=== PATIENT | female | born 1935 | race Caucasian/White ===

== ENCOUNTER 2023-09-24 14:01 | Outpatient (CLI) | payer MEDICARE, BC, SELFPAY ==
--- OUTSIDE RECORDS SUMMARY | 2023-09-24 14:09 | XMS_ITS | Encounter Summary ---
Author Organization [facility] Address [address] [place] [address] Care Team Providers Care Director Payer Name Role Phone Davide Connelly P.A.-C. Primary Care Provider Reason for Referral * Outpatient (Routine) - Authorized Specialty Diagnoses / Procedures Referred By Juvenal camejo Referred To Contact Ophthalmology Estevan Robledo M.D. [address] [place] [phone] [facility] Referral ID Status Reason Start Date Expiration Date V isits Requested Visits Authorized [id number] Authorized 09/06/2023 03/07/2025 1 1 Reason for Visit * Reason Comments Follow-up * Outpatient (Routine) - Closed Specialty Diagnoses / Procedures Referred By Juvenal camejo Referred To Contact Ophthalmology Estevan Robledo M.D. [address], [place] [address] [facility] Region Referral ID Status Reason Start Date Expiration Date Visits Re quested Visits Authorized [id number] Closed 08/09/2023 02/07/2025 1 1 Encounter Details Date Type Department Care Team (Latest Contact Info) Description 09/06/2023 10:00 AM CDT Office Visit Department of Ophthalmology in [place], [place] [address] [phone] Estevan Robledo M.D. [address] [phone] Primary Open-Angle Glaucoma Severe Stage Bilateral (Primary Dx); Edema Corneal Secondary Right Social History Tobacco Use Types Packs/Day Years Used Date Smoking Tobacco: Former Cigarettes Q uit: 02/25/1994 Smokeless Tobacco: Never Alcohol Use Standard Drinks/Week Comments Yes 2 (1 standard drink = 0.6 oz pur e alcohol) Humiliation, Afraid, Rape, and Kick questionnair e Answer Date Recorded Within the last year, have y ou been afraid of your partner or ex-partner? No 01/10/2022 Within the last year, have y ou been humiliated or emotionally abused in other ways by your partner or ex-partner? No Within the last year, have y ou been kicked, hit, slapped, or otherwise physically hurt by your partner or ex-partner? No 01/10/2022 Within the last year, have y ou been raped or forced to have any kind of sexual activity by your partner or ex-partner? No 01/10/2022 Social Connection and Isolat ion Panel [NHANES] Answer Date Recorded In a typical week, how many times do you talk on the phone with family, friends, or neighbors? More than three times a week 01/10/2022 How often do you get togethe r with friends or relatives? More than three times a week 01/10/2022 How often do you attend [facility] or adventism services? More than 4 times per year 01/10/2022 Do you belong to any clubs o r organizations such as moravian groups, unions, fraternal or athletic groups, or school groups? Yes 01/10/2022 How often do you attend meet ings of the clubs or organizations you belong to? More than 4 times per year 01/10/2022 Are you , , di vorced, , never , or living with a partner? 01/10/2022 AUDIT-C Answer Date Recorded Q1: How often do you have a drink containing alc ohol? 2-4 times a month 01/10/2022 Q2: How many drinks containi ng alcohol do you have on a typical day when you are drinking? Patient declined 01/10/2022 Q3: How often do you have si x or more drinks on one occasion? Never 01/10/2022 Overall Financial Resource Strain (CARDIA) Answe r Date Recorded How hard is it for you to pa y for the very basics like food, housing, medical care, and heating? Not very hard 01/10/2022 PHQ-2 Answer Date Recorded PHQ-2 Score 0 01/11/2022 [facility] - Occupational Stress Questionnaire Answer Date Recorded Do you feel stress - tense, restless, nervous, or anxious, or unable to sleep at night because your mind is troubled all the time - these days? Only a little 01/10/2022 Exercise Vital Sign Answer Date Recorde d On average, how many days pe r week do you engage in moderate to strenuous exercise (like a brisk walk)? 7 days 01/10/2022 On average, how many minutes do you engage in exercise at this level? 50 min 01/10/2022 Hunger Vital Sign Answer Date Recorded Within the past 12 months, y ou worried that your food would run out before you got the money to buy more. Never true 01/11/20 22 Within the past 12 months, t he food you bought just didn't last and you didn't have money to get more. Never true 01/10/2022 PRAPARE - Transportation Answer Date Re corded In the past 12 months, has l ack of transportation kept you from medical appointments or from getting medications? No 12/26 In the past 12 months, has l ack of transportation kept you from meetings, work, or from getting things needed for daily living? No 01/10/2022 Housing Stability Vital Sign Answer Mookie e Recorded In the last 12 months, was t here a time when you were not able to pay the mortgage or rent on time? No 01/10/2022 In the last 12 months, how many places have you lived? 1 01/10/2022 In the last 12 months, was t here a time when you did not have a steady place to sleep or slept in a custodial (including now)? No 01/10/2022 Depression Answer Date Recor ded PHQ-9 Total Score (max 27) 5 07/29 Nutrition Answer Date Recorded Nutrition: EVOO Fat Source Yes 01/10 On average, how many serving s of fruits and vegetables do you eat per day (serving size is equal to 1 cup or approximately the size of a tennis ball)? 2-3 01/10/2022 Dental Answer Date Recorded Dental: Regular Dentist Yes 01/11/20 Employment Answer Date Recorded Employment status Retired 01/10/2022 Education Answer Date Recorded What is the highest level of school you have completed or the highest degree you have received? Bachelor's degree (e.g., BA, AB, BS) 09/15/2018 Sex and Gender Information Value Date Recorded Sex Assigned at Female 03/31/2018 8:18 PM CONTRACT ATTORNEY Gender Identity Female 03/31/2018 8:18 PM CONTRACT ATTORNEY Sexual Orientation Straight 03/31/2018 8: 18 PM CONTRACT ATTORNEY documented as of this encounter Progress Notes * Estevan Robledo M.D. - 09/06/2023 10:00 AM CDT Julia Saavedra was seen today for Follow-up #1 Primary Open-Angle Glaucoma Severe Stage Bilateral #2 Edema Corneal Secondary Right Plan; Replace BCL right eye. Continue current eye meds without change. Recheck four to six weeks. III documented in this encounter Plan of Treatment Upcoming Encounters Date Type Department Care Team (Late st Contact Info) Description 10/18/2023 10:00 AM CDT Office Visit Department of Ophthalmology in [place], [place] [address] [place] [phone] Estevan Robledo M.D. [address], [place] [address] Scheduled Referrals Name Type Priority Associated Diagnoses Order Schedule Ophthalmology office visit (clinic) Outpatient Referral Routine Expected: 10/11/2023 (Approximate), Expires: 12/06/2024 documented as of this encounter Visit Diagnoses Diagnosis Primary Open-Angle Glaucoma Severe Stage Bilateral- Primary Edema Corneal Secondary Right documented in this encounter Additional Health Concerns Assessment Noted Time PHQ-9 Depression Total Score: 5 07/30/19 21 9:46 AM CDT documented as of this encounter Care Teams Director Payer Relationship Specialty Start Date End Date Davide Connelly P.A.-C. PCP - General Family Medicine 07/11/17 documented as of this encounter
--- OUTSIDE RECORDS SUMMARY | 2023-09-24 14:09 | XMS_ITS | Encounter Summary ---
Author Organization [facility] Address [address] [place] [address] Care Team Providers Care Produce Buyer Name Role Phone Davide Connelly P.A.-C. Primary Care Provider Encounter Details Date Type Department Care Team (Late st Contact Info) Description 06/12/2023 Orders Only Department of Ophthalmology in [place], [place] [address] [place] [phone] Estevan Robledo M.D. [address], [place] [address] Social History Tobacco Use Types Packs/Day Years [...] week 01/10/2022 How often do you attend chur ch or episcopal services? More than 4 times per year 01/10/2022 Do you belong to any clubs o r organizations such as spiritism groups, unions, fraternal or athletic groups, or [...] Answer Date Recorded PHQ-2 Score 0 01/11/2022 [facility] - Occupational [...] money to buy more. Never true 01/11/20 Within the past 12 months, t he [...] place to sleep or slept in a chcf (including now)? No 01/10/2022 Depression Answer Date [...] Sex Assigned at Female 03/31/2018 8:18 PM AUTO BODY TECHNICIAN Gender Identity Female 03/31/2018 8:18 PM AUTO BODY TECHNICIAN Sexual Orientation Straight 03/31/2018 8: 18 PM AUTO BODY TECHNICIAN documented as of this encounter Plan of Treatment Upcoming Encounters Date Type Department Care Team (Late st Contact Info) Description 10/18/2023 10:00 AM CDT Office Visit Department of Ophthalmology in [place], [place] [address] [phone] Estevan Robledo M.D. [address] [place] [phone] documented as of this encounter Visit Diagnoses Not on filedocumented in this encounter Additional Health Concerns Assessment Noted Time PHQ-9 Depression Total Score: 5 07/30/19 21 9:46 AM CDT documented as of this encounter Care Teams Produce Buyer Relationship Specialty Start Date End Date Davide Connelly P.A.-C. PCP - General Family Medicine 07/11/17 documented as of this encounter
--- OUTSIDE RECORDS SUMMARY | 2023-09-24 14:09 | XMS_ITS | Encounter Summary ---
Author Organization [facility] Address [address] [place] [address] Care Team Providers Care Ticket Speculator Name Role Phone Davide Connelly P.A.-C. Primary Care Provider Reason for Referral * Outpatient (Routine) - Closed Specialty Diagnoses / Procedures Referred By Juvenal camejo Referred To Contact Ophthalmology Estevan Robledo M.D. [address] [phone] [facility] Referral ID Status Reason Start Date Expiration Date Visits Re quested Visits Authorized [id number] Closed 08/09/2023 02/07/2025 1 1 Reason for Visit * Reason Comments Dry Eye * Outpatient (Routine) - Closed Specialty Diagnoses / Procedures Referred By Juvenal camejo Referred To Contact Ophthalmology Estevan Robledo M.D. [address] [place] [phone] [facility] Referral ID Status Reason Start Date Expiration Date Visits Re quested Visits Authorized [id number] Closed 07/01/2023 12/30/2024 1 1 Encounter Details Date Type Department Care Team (Latest Contact Info) Description 08/09/2023 10:30 AM CDT Office Visit Department of Ophthalmology in [place], [place] [address] [phone] Estevan Robledo M.D. [address] [phone] Dry Eye Syndrome Right (Primary Dx); Primary Open-Angle Glaucoma Severe Stage Bilateral; Edema Corneal Secondary Right; Intraocular Lens Implant Status Post Social History Tobacco Use Types Packs/Day Years [...] 01/10/2022 How often do you attend chur or restoration services? More than 4 times per year 01/10/2022 Do you belong to any clubs o r organizations such as sikhism groups, unions, fraternal or athletic groups, or [...] Answer Date Recorded PHQ-2 Score 0 01/11/2022 [facility] - Occupational Stress [...] Sex Assigned at Female 03/31/2018 8:18 PM STAGE SETTING PAINTER APPRENTICE Gender Identity Female 03/31/2018 8:18 PM STAGE SETTING PAINTER APPRENTICE Sexual Orientation Straight 03/31/2018 8: 18 PM STAGE SETTING PAINTER APPRENTICE documented as of this encounter Progress Notes * Estevan Robledo M.D. 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 Increased dry eye with contact lens deposits. Plan: replace BCL. Maxitrol italia bedtime right lower lid. Recheck one month. III documented in this encounter Plan of Treatment Upcoming Encounters Date Type Department Care Team (Late st Contact Info) Description 10/18/2023 10:00 AM CDT Office Visit Department of Ophthalmology in [place], [place] [address] [place] [phone] Estevan Robledo M.D. 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 PCP - General Family Medicine 07/11/17 documented as of this encounter
--- OUTSIDE RECORDS SUMMARY | 2023-09-24 14:09 | XMS_ITS ---
Author Organization [facility] Address [address] [place] [address] Care Team Providers Care Technical Testing Engineer Name Role Phone Unavailable Unavailable Unavailable Surgery Details Not on file Complications Check Surgery Details section. Procedure Estimated Blood Loss Check Surgery Details section. Procedure Findings Check Surgery Details section. Procedure Specimens Taken Check Surgery Details section.
--- OUTSIDE RECORDS SUMMARY | 2023-09-24 14:09 | XMS_ITS | Encounter Summary ---
Author Organization [facility] Address [address] [place] [address] Care Team Providers Care Forensic Identification Specialist Name Role Phone Davide Connelly P.A.-C. Primary Care Provider Encounter Details Date Type Department Care Team (Late st Contact Info) Description 11/15/2016 Historical Ophthalmology [facility] Estevan Robledo M.D. [address] [place] [phone] Social History Tobacco Use Types Packs/Day Years Used Date Smoking Tobacco: Former Sex and Gender Information Value Date Recorded Sex Assigned at Female 03/31/2018 8:18 PM CARPENTER Gender Identity Female 03/31/2018 8:18 PM CARPENTER Sexual Orientation Straight 03/31/2018 8: 18 PM CARPENTER documented as of this encounter Progress Notes * Estevan Robledo M.D. - 11/15/2016 9:15 AM CDT Eye General CHIEF COMPLAINT 1 month recheck HISTORY OF PRESENT ILLNESS No changes or new problems per pt. IMPRESSION / REPORT / PLAN #1 Corneal edema right eye. Overall edema and inflammation doing well but had again lost contact lens N&D 8.6 and replaced with N&D 8.4. Notes increased edge awareness probably due to lower lid laxity and small diameter of lens. #2 Trichiasis right upper lid. Not bothering patient currently. Plan: Replace bandage contact lens with N&D 8.4 lens. F/u six weeks. III/ DIAGNOSIS #1 Corneal edema right eye. Overall edema and inflammation doing well but had again lost contact lens N&D 8.6 and replaced with N&D 8.4. Notes increased edge awareness probably due to lower lid laxity and small diameter of lens. #2 Trichiasis right upper lid. Not bothering patient currently. CDM Reports - EYEGEN Id: [id number] Status: Fnl documented in this encounter Plan of Treatment Upcoming Encounters Date Type Department Care Team (Late st Contact Info) Description 10/18/2023 10:00 AM CDT Office Visit Department of Ophthalmology in [place], [place] [address], [place] [address] Estevan Robledo M.D. [address], [place] [phone] documented as of this encounter Visit Diagnoses Not on filedocumented in this encounter Additional Health Concerns Assessment Noted Time PHQ-9 Depression Total Score: 2 06/27/19 17 9:59 AM CDT documented as of this encounter Care Teams Forensic Identification Specialist Relationship Specialty Start Date End Date Davide Connelly P.A.-C. PCP - General Family Medicine 07/11/17 documented as of this encounter
--- OUTSIDE RECORDS SUMMARY | 2023-09-24 14:09 | XMS_ITS | Clinical Summary ---
Author Organization [facility] Address [address] [place] [address] Care Team Providers Care Barrel Polisher Name Role Phone Davide Connelly P.A.-C. Primary Care Provider Source Comments Patient records contain information from all sites at [facility]. For routine questions regarding patient records, call [phone] during business hours, M-F 8:00 AM - 5:00 PM Central Time. Record requests for emergency care only can be directed to [phone] at any time.[facility] Allergies Active Allergy Reactions Criticality Noted Date Comments Brimonidine Other (see comments) 08/31/2010 Cerner listed no reactions Brinzolamide Other (see comments) 08/31/2010 Cerner listed no reactions Latanoprost Other (see comments) 08/31/2010 Cerner listed no reactions Timolol Other (see comments) 08/31/2010 Cerner listed no reactions Medications Medication Sig Dispensed Refills Start Date End Date Status ACETAMINOPHEN (TYLENOL ARTHRITIS ORAL) Take 650 mg by mouth 2 (two) times a day. 08/31/2010 Active GLUCOSAMINE/CHOND ROITIN SULF A (GLUCOSAMINE-MALINA DROITIN ORAL) Take by mouth 2 (two) times a day. 06/14/2009 Active carboxymethylcell ulose-glycerin (REFRESH OPTIVE) 1-0.9 % ophthalmic solution Administer 1 drop into both eyes 3 (three) times a day as needed. 12/25/2012 Active antiarthritic combination no.2 900 mg tablet Take 1,000 mg by mouth. 06/12/2022 Active CALCIUM CARBONATE-VITAMIN D3 ORAL Take 1 capsule by mouth 2 (two) times a day. 06/12/2022 Active LORazepam (ATIVAN) 0.5 mg tablet Take 0.5 mg by mouth 3 (three) times a day as needed. 06/12/2022 Active amLODIPine (NORVASC) 5 mg tablet Take 1 tablet (5 mg total) by mouth daily. 90 tablet 3 01/24/2023 Active atenoloL (TENORMIN) 25 mg tablet Take 1 tablet (25 mg total) by mouth daily. 90 tablet 3 01/24/2023 Active FLUoxetine (PROzac) 10 mg capsule Take 1 capsule (10 mg total) by mouth daily. 90 capsule 3 01/24/2023 Active lisinopriL (PRINIVIL,ZESTRIL ) 30 mg tablet Take 1 tablet (30 mg total) by mouth daily. 90 tablet 3 01/24/2023 Active mirtazapine (Remeron) 15 mg tablet Take 0.5 tablets (7.5 mg total) by mouth at bedtime. 45 tablet 3 01/24/2023 Active diclofenac sodium (VOLTAREN) 1 % gel Apply 2 g topically 4 (four) times a day. Apply to affected area. 100 g 11 01/24/2023 Active ketorolac (ACULAR) 0.5 % ophthalmic solution Administer 1 drop into the right eye 2 (two) times a day. 5 mL 2 03/12/2023 Active neomycin-polymyxi n B-dexameth (MAXITROL) 3.5 mg/g-10,000 unit/g-0.1 % ophthalmic ointment Apply to right upper lid twice daily. 3.5 g 1 03/19/2023 Active Additional Information Patient not taking.Reported on 05/27/2023 tobramycin (TOBREX) 0.3 % ophthalmic solution Administer 1 drop into the right eye daily. 5 mL 11 06/12/2023 Active neomycin-polymyxi n B-dexameth (MAXITROL) 3.5 mg/g-10,000 unit/g-0.1 % ophthalmic ointment Apply to right lower lid daily at bedtime 3.5 g 1 08/09/2023 Active Additional Information Patient not taking.Reported on 09/06/2023 Gemtesa 75 mg tabletIndications :Urinary Urge Incontinence take one tablet by mouth every day 90 tablet 3 09/04/2023 Active vibegron 75 mg tabletIndications :Urinary Urge Incontinence Take 1 tablet by mouth daily. 30 tablet 11 08/21/2022 09/04/19 24 Discontinued Active Problems Problem Noted Date Diagnosed Date Urinary Urge Incontinence 07/17/2022 Overview (08/21/2022): Initiated pelvic floor muscle exercises and mirabegron. I will plan to see her back in 1 month for follow-up. Notes significant improvement and would like to continue medication. Prescription renewed for 1 year. Recommend follow-up in 1 year. 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 Pelvic floor PT was offered and declined. She would prefer to work on pelvic floor muscle strength on her own. Postmenopausal Atrophic Vaginitis 07/17/2022 Overview (08/21/2022): Discussed initiation of estrogen cream and she declines at this time. Will revisit in the future if needed. Anxiety 01/26/2019 Primary Osteoarthritis Multiple Sites 05/22/2017 Onychomycosis 05/22/2017 Glaucoma 05/22/2017 Osteoporosis 06/14/2009 Hypertension Essential Primary 09/18/2001 Resolved Problems Problem Noted Date Diagnosed Date Resolved Date Fracture Wrist Closed Subsequent Left 09/30/2018 01/11/2020 Hyperlipidemia Mixed 05/22/2017 020 Incontinence Urinary Stress And Urge 05/22/2017 07/17/2022 Periodontal Disease 05/22/2017 07/17/19 19 Encounters Date Type Department Care Team Description 09/06/2023 10:00 AM CDT Office Visit Department of Ophthalmology in [place], [place] [address] [place] [address] Estevan Robledo M.D. Primary Open-Angle Glaucoma Severe Stage Bilateral (Primary Dx); Edema Corneal Secondary Right 08/30/2023 Refill Department of Obstetrics and Gynecology in [place], [place] [address] [place] [address] Kaila Blackburn, ARACELIS, C.N.P. Med Refill 08/09/2023 10:30 AM CDT Office Visit Department of Ophthalmology in [place], [place] [address], [place] [address] Estevan Robledo M.D. Dry Eye Syndrome Right (Primary Dx); Primary Open-Angle Glaucoma Severe Stage Bilateral; Edema Corneal Secondary Right; Intraocular Lens Implant Status Post 07/02/2023 Orders Only [facility] MNT Davide Connelly P.A.-C. 07/01/2023 10:00 AM CDT Office Visit Department of Ophthalmology in [place], [place] [address], [place] [address] Estevan Robledo M.D. Dry Eye Syndrome Right (Primary Dx); Primary Open-Angle Glaucoma Severe Stage Bilateral from Last 3 Months Immunizations Name Administration Dates Next Due DT, Pediatric 05/30/2007 HZV (ZOSTAVAX) 03/04/2013 Influenza high dose QV(65 ye ars or older) (PF) 01/24/2023,01/11/2022,12/19/2020 Influenza, Unspecified 12/10/2019,2018,12/30/2017,2016,12/29/2015,12/28/2014,12/29/2013,1 ,12/31/2011,12/21/2010, 010,11/10/2008,12/24/2007,12/16/2006, PCV13 06/21/2014 PPSV23 08/09/2001,04/01/2000 RZV (SHINGRIX) 01/11/2021(Deferred: Patient decision),01/28/2020 SARS-COV-2 (COVID-19) - MODE RNA (12 YEARS AND OLDER) [id number] 01/24/2023 SARS-COV-2 (COVID-19) - PFIZ ER (Discontinued)(12 years or older) 11/18/2020,04/14/2020,03/24/2020 SARS-COV-2 (COVID-19) - PFIZ ER BIVALENT TS(Discontinued)(12 YEARS OR OLDER) 01/11/2022 SARS-COV-2 (COVID-19) - PFIZ ER TS(Discontinued)(12 years or older) 08/21/2021 Td (Adult), adsorbed 02/09/1997 Td, (Adult) Unspecified 05/30/2007 Tdap 06/24/2013 Zoster, Unspecified 01/11/2021(Deferred: Other) influenza high dose (65 year s or older) (PF) 12/15/2018,12/30/2017 Family History Medical History Relation Name Comments Diabetes Brother Hyperlipidemia Brother Hypertension Brother Coronary artery disease Father Nicholas Barrios Heart attack Father Nicholas Barrios Colon cancer Mother Relation Name Status Comments Brother Father Nicholas Barrios Mother Social History Tobacco Use Types Packs/Day Years Used Date Smoking Tobacco: Former Cigarettes Q uit: 02/25/1994 Smokeless Tobacco: Never Tobacco Cessation:Counseling Given: Not Answered Alcohol Use Standard Drinks/Week Comments Yes 2 [...] week 01/10/2022 How often do you attend [facility] or christianity services? More than 4 times per year 01/10/2022 Do you belong to any clubs o r organizations such as worship groups, unions, fraternal or athletic groups, or [...] Answer Date Recorded PHQ-2 Score 0 01/11/2022 [facility]ational Stress Questionnaire Answer [...] place to sleep or slept in a half-way (including now)? No 01/10/2022 Depression Answer Date [...] Sex Assigned at Female 03/31/2018 8:18 PM SOA ENGINEER Gender Identity Female 03/31/2018 8:18 PM SOA ENGINEER Sexual Orientation Straight 03/31/2018 8: 18 PM SOA ENGINEER Last Filed Vital Signs Vital Sign Reading Time Taken Comments Blood Pressure 116/64 01/24/2023 11:06 AM SOA ENGINEER Pulse 56 01/24/2023 10:51 AM SOA ENGINEER Temperature 36 ??C (96.8 ??F) 01/24/2023 10:46 AM SOA ENGINEER Respiratory Rate 20 01/24/2023 10:46 AM SOA ENGINEER Oxygen Saturation 100% 07/29/2020 9:54 AM CDT Inhaled Oxygen Concentration - - Weight 53.7 kg (118 lb 4.4 oz) 01/24/2023 10:46 AM SOA ENGINEER Height 163 cm (5' 4.17) 01/24/2023 10:46 AM SOA ENGINEER Body Mass Index 20.19 01/24/2023 10:46 AM SOA ENGINEER Plan of Treatment Upcoming Encounters Date Type Department Care Team (Late st Contact Info) Description 10/18/2023 10:00 AM CDT Office Visit Department of Ophthalmology in [place], [place] [address] [place] [address] Estevan Robledo M.D. [address] [place] [address] Health Maintenance Due Date Last Done Comments Visit: Medicare Annual Wellness 01/12/2023 Depression Screening (Annual PHQ-2) 02/25/2023 Fall Risk Screen (Annual) 02/25/2023 COVID-19 Vaccine (2022-2 4 season) 2023 01/24/2023, 01/11/2022, 08/21/2021, Additional history exists DTaP,Tdap,and Td Vaccines (4 - Td or Tdap) 06/25/2023 06/24/2013, 05/30/2007, 05/30/2007, Additional history exists Influenza Vaccine (#1) 2023 3, 01/11/2022, 12/19/2020, Additional history exists Creatinine Level (Kidney Fun ction Test) 01/24/2024 01/23/2023, 01/11/2022, 01/08/2022, Additional history exists Potassium Level 01/24/2024 01/23/2023, 12/26, 01/08/2022, Additional history exists Sodium Level 01/24/2024 01/23/2023, 12/26, 01/08/2022, Additional history exists Visit: Chronic Disease, age 18+ 01/25/2024 Pneumococcal vaccine (65+ years) Completed 06/21/2014, 08/09/2001, 04/01/2000 Zoster Vaccines Completed 01/11/2021, 04/2019, 03/04/2013 Medical Devices Implanted Type Area Sorority Supervisor Device Identifier Shelf Expiration Date Model / Serial / Lot Sclera Tissue Shell 1 2 - Flores Implanted:Qty: 1 on 07/18/1999 Ocular (Eye) Implant [id number] Medical Description:Device Manufactu rer - [id number]. Device Status Text - OCULARIMP-. Procedures Procedure Name Priority Date/Time Associated Diagnosis Comments COMPREHENSIVE METABOLIC PANEL, S/P Routine 01/23/2023 9:15 AM SOA ENGINEER Hypertension Essential Primary from Last 3 Months or Most Recently Relevant to Health Maintenance Results * Comprehensive Metabolic Panel (01/23/2023 9:15 AM SOA ENGINEER) Potassium, P 4.7 3.6 - 5.2 mmol/L 01/23/2023 11:56 AM SOA ENGINEER OWAT Sodium, P 136 135 - 145 mmol/L 01/23/2023 11:56 AM SOA ENGINEER OWAT Chloride, P 100 98 - 107 mmol/L 01/23/2023 11:56 AM SOA ENGINEER OWAT Bicarbonate, P 23 22 - 29 mmol/L 01/23/2023 11:56 AM SOA ENGINEER OWAT Anion Gap, P 13 7 - 15 01/23/2023 11:56 AM SOA ENGINEER OWAT BUN (Blood Urea Nitrogen), P 20 6 - 21 mg/dL 01/23/2023 11:56 AM SOA ENGINEER OWAT Creatinine 0.84 0.59 - 1.04 mg/dL 01/23/2023 11:56 AM SOA ENGINEER OWAT Estimated GFR (eGFR) 68 >=60 mL/min/BS A 01/23/2023 11:56 AM SOA ENGINEER OWAT Comment: Estimated GFR calculated using the 2020 CKD_EPI creatinine equation. Calcium, Total, P 9.6 8.8 - 10.2 mg/dL 01/23/2023 11:56 AM SOA ENGINEER OWAT Glucose, P 99 70 - 140 mg/dL 01/23/2023 11:56 AM SOA ENGINEER OWAT Protein, Total, P 7.0 6.3 - 7.9 g/dL 01/23/2023 11:56 AM SOA ENGINEER OWAT Albumin, P 4.4 3.5 - 5.0 g/dL 01/23/2023 11:56 AM SOA ENGINEER OWAT Aspartate Aminotransferase (AST), P 20 8 - 43 U/L 01/23/2023 11:56 AM SOA ENGINEER OWAT Alkaline Phosphatase, P 85 35 - 104 U/L 01/23/2023 11:56 AM SOA ENGINEER OWAT Alanine Aminotransferase (ALT), P 11 7 - 45 U/L 01/23/2023 11:56 AM SOA ENGINEER OWAT Bilirubin, Total, P 0.3 0.0 - 1.2 mg/dL 01/23/2023 11:56 AM SOA ENGINEER OWAT Blood (Blood, Venous) 01/23/2023 9:15 AM SOA ENGINEER 01/23/2023 11:17 AM SOA ENGINEER Davide Connelly P.A.-C. LAB BLOOD ADD- ON [facility] [address] [place] [address], [place] OWAT [facility] [place] [address] [place] [address] from Last 3 Months or Most Recently Relevant to Health Maintenance Advance Directives For more information, please contact: [phone] Documents on File Type Date Recorded Patient Celery Packer Expl anation Advance Directives 03/16/2011 12:00 AM Leg acy document. See document viewer. Care Teams Barrel Polisher Relationship Specialty Start Date End Date Davide Connelly P.A.-C. PCP - General Family Medicine 07/11/17
--- OUTSIDE RECORDS SUMMARY | 2023-09-24 14:09 | XMS_ITS | Encounter Summary ---
Author Organization [facility] Address [address] [place] [address] Care Team Providers Care Street Car Inspector Name Role Phone Davide Connelly P.A.-C. Primary Care Provider Reason for Referral * Outpatient (Routine) - Closed Specialty Diagnoses / Procedures Referred By Juvenal camejo Referred To Contact Ophthalmology Estevan Robledo M.D. [address] [phone] [facility] Referral ID Status Reason Start Date Expiration Date Visits Re quested Visits Authorized [id number] Closed 07/01/2023 12/30/2024 1 1 * Outpatient (Routine) - Closed Specialty Diagnoses / Procedures Referred By Juvenal camejo Referred To Contact Ophthalmology Estevan Robledo M.D. [address] [place] [phone] [facility] Referral ID Status Reason Start Date Expiration Date Visits Re quested Visits Authorized [id number] Closed 07/01/2023 12/30/2024 1 1 Reason for Visit * Reason Comments Follow-up * Outpatient (Routine) - Closed Specialty Diagnoses / Procedures Referred By Juvenal camejo Referred To Contact Ophthalmology Estevan Robledo M.D. [address] [place] [phone] [facility] Region Referral ID Status Reason Start Date Expiration Date Visits Re quested Visits Authorized [id number] Closed 05/27/2023 11/25/2024 1 1 Encounter Details Date Type Department Care Team (Latest Contact Info) Description 07/01/2023 10:00 AM CDT Office Visit Department of Ophthalmology in [place], [place] [address] [place] [address] Estevan Robledo M.D. [address] [place] [address] Dry Eye Syndrome Right (Primary Dx); Primary Open-Angle Glaucoma Severe Stage Bilateral Social History Tobacco Use Types Packs/Day Years [...] week 01/10/2022 How often do you attend [facility] or buddhism services? More than 4 times per year 01/10/2022 Do you belong to any clubs o r organizations such as confucianist groups, unions, fraternal or athletic groups, or [...] Answer Date Recorded PHQ-2 Score 0 01/11/2022 [facility] - Occupational Stress Questionnaire Answer Date Recorded [...] Sex Assigned at Female 03/31/2018 8:18 PM MEDICAL DOCTOR Gender Identity Female 03/31/2018 8:18 PM MEDICAL DOCTOR Sexual Orientation Straight 03/31/2018 8: 18 PM MEDICAL DOCTOR documented as of this encounter Progress Notes * Estevan Robledo M.D. - 07/01/2023 10:00 AM CDT Julia Saavedra was seen today for Follow-up #1 Dry Eye Syndrome Right #2 Primary Open-Angle Glaucoma Severe Stage Bilateral Stable exam with current management. Plan: Replace BCL. Continue current eye meds. Recheck one month. III documented in this encounter Plan of Treatment Upcoming Encounters Date Type Department Care Team (Late st Contact Info) Description 10/18/2023 10:00 AM CDT Office Visit Department of Ophthalmology in [place], [place] [address], [place] [address] Estevan Robledo M.D. [address] [place] [address] Scheduled Referrals Name Type Priority Associated Diagnoses Order Schedule Ophthalmology office visit (clinic) Outpatient Referral Routine Expected: 08/01/2023 (Approximate), Expires: 09/30/2024 Ophthalmology office visit (clinic) Outpatient Referral Routine Expected: 07/29/2023 (Approximate), Expires: 09/30/2024 documented as of this encounter Visit Diagnoses Diagnosis Dry Eye Syndrome Right- Primary Primary Open-Angle Glaucoma Severe Stage Bilateral documented in this encounter Additional Health Concerns Assessment Noted Time PHQ-9 Depression Total Score: 5 07/30/19 21 9:46 AM CDT documented as of this encounter Care Teams Street Car Inspector Relationship Specialty Start Date End Date Davide Connelly P.A.-C. PCP - General Family Medicine 07/11/17 documented as of this encounter
--- OUTSIDE RECORDS SUMMARY | 2023-09-24 14:09 | XMS_ITS | Referral Summary ---
Author Organization [facility] Address [address] [place] [address] Care Team Providers Care Iphone Developer Name Role Phone Davide Connelly P.A.-C. Primary Care Provider Source Comments Patient records contain information from all sites at [facility]. For routine questions regarding patient records, call [phone] during business hours, M-F 8:00 AM - 5:00 PM Central Time. Record requests for emergency care only can be directed to [phone] at any time.[facility] Encounters Date Type Department Care Team Description 09/06/2023 10:00 AM CDT Office Visit Department of Ophthalmology in [address] [phone] Estevan Robledo M.D. Primary Open-Angle Glaucoma Severe Stage Bilateral (Primary Dx); Edema Corneal Secondary Right 08/30/2023 Refill Department of Obstetrics and Gynecology in [place], [place] [address] [place] [address] Kaila Blackburn APRN, C.N.P. Med Refill 08/09/2023 10:30 AM CDT Office Visit Department of Ophthalmology in [place], [place] [address] [place] [phone] Estevan Robledo M.D. Dry Eye Syndrome Right (Primary Dx); Primary Open-Angle Glaucoma Severe Stage Bilateral; Edema Corneal Secondary Right; Intraocular Lens Implant Status Post 07/02/2023 Orders Only [facility] MNT Davide Connelly P.A.-C. 07/01/2023 10:00 AM CDT Office Visit Department of Ophthalmology in [place], [place] [address], [place] [address] Estevan Robledo M.D. Dry Eye Syndrome Right (Primary Dx); Primary Open-Angle Glaucoma Severe Stage Bilateral from Last 3 Months Allergies Active Allergy Reactions Criticality Noted Date [...] 05/22/2017 07/17/2022 Periodontal Disease 05/22/2017 07/17/19 19 Immunizations Name Administration Dates Next Due DT, Pediatric 05/30/2007 HZV (ZOSTAVAX) 03/04/2013 Influenza high dose QV(65 ye ars or older) (PF) 01/24/2023,01/11/2022,12/19/2020 Influenza, Unspecified 12/10/2019,2018,12/30/2017,2016,12/29/2015,12/28/2014,12/29/2013,1 ,12/31/2011,12/21/2010, 010,11/10/2008,12/24/2007,12/16/2006, PCV13 06/21/2014 PPSV23 08/09/2001,04/01/2000 RZV (SHINGRIX) 01/11/2021(Deferred: Patient decision),01/28/2020 SARS-COV-2 (COVID-19) - MODE RNA (12 YEARS AND OLDER) [id number] 01/24/2023 SARS-COV-2 (COVID-19) - PFIZ ER (Discontinued)(12 years or older) 11/18/2020,04/14/2020,03/24/2020 SARS-COV-2 (COVID-19) - PFIZ ER BIVALENT TS(Discontinued)(12 YEARS OR OLDER) 01/11/2022 SARS-COV-2 (COVID-19) - PFIZ ER TS(Discontinued)(12 years or older) 08/21/2021 Td (Adult), adsorbed 02/09/1997 Td, (Adult) Unspecified 05/30/2007 Tdap 06/24/2013 Zoster, Unspecified 01/11/2021(Deferred: Other) influenza high dose (65 year s or older) (PF) 12/15/2018,12/30/2017 Social History Tobacco Use Types Packs/Day Years [...] often do you attend chur ch or episcopalian services? More than 4 times per year 01/10/2022 Do you belong to any clubs o r organizations such as cheondoism groups, unions, fraternal or athletic groups, or [...] Answer Date Recorded PHQ-2 Score 0 01/11/2022 [facility] - Occupational Stress [...] Assigned at Female 03/31/2018 8:18 PM MEDICAL FACILITIES SECTION DIRECTOR Gender Identity Female 03/31/2018 8:18 PM MEDICAL FACILITIES SECTION DIRECTOR Sexual Orientation Straight 03/31/2018 8: 18 PM MEDICAL FACILITIES SECTION DIRECTOR Last Filed Vital Signs Vital Sign Reading Time Taken Comments Blood Pressure 116/64 01/24/2023 11:06 AM MEDICAL FACILITIES SECTION DIRECTOR Pulse 56 01/24/2023 10:51 AM MEDICAL FACILITIES SECTION DIRECTOR Temperature 36 ??C (96.8 ??F) 01/24/2023 10:46 AM MEDICAL FACILITIES SECTION DIRECTOR Respiratory Rate 20 01/24/2023 10:46 AM MEDICAL FACILITIES SECTION DIRECTOR Oxygen Saturation 100% 07/29/2020 9:54 AM CDT Inhaled Oxygen Concentration - - Weight 53.7 kg (118 lb 4.4 oz) 01/24/2023 10:46 AM MEDICAL FACILITIES SECTION DIRECTOR Height 163 cm (5' 4.17) 01/24/2023 10:46 AM MEDICAL FACILITIES SECTION DIRECTOR Body Mass Index 20.19 01/24/2023 10:46 AM MEDICAL FACILITIES SECTION DIRECTOR Plan of Treatment Upcoming Encounters Date Type Department Care Team (Late st Contact Info) Description 10/18/2023 10:00 AM CDT Office Visit Department of Ophthalmology in [place], [place] [address] [address] Estevan Robledo M.D. [address] [place] [phone] Medical Devices Implanted Type Area Metal Sprayer Protective Coating Device Identifier Shelf Expiration Date Model / Serial / Lot Sclera Tissue Shell 1 2 - Flores Implanted:Qty: 1 on 07/18/1999 Ocular (Eye) Implant Brasseler [employer] Medical Description:Device Manufactu rer - KAYAKeler [employer]. Device Status Text - OCULAR-. Procedures Procedure Name Priority Date/Time Associated Diagnosis Comments COMPREHENSIVE METABOLIC PANEL, S/P Routine 01/23/2023 9:15 AM MEDICAL FACILITIES SECTION DIRECTOR Hypertension Essential Primary from Last 3 Months or Most Recently Relevant to Health Maintenance Results * Comprehensive Metabolic Panel (01/23/2023 9:15 AM MEDICAL FACILITIES SECTION DIRECTOR) Potassium, P 4.7 3.6 - 5.2 mmol/L 01/23/2023 11:56 AM MEDICAL FACILITIES SECTION DIRECTOR OWAT Sodium, P 136 135 - 145 mmol/L 01/23/2023 11:56 AM MEDICAL FACILITIES SECTION DIRECTOR OWAT Chloride, P 100 98 - 107 mmol/L 01/23/2023 11:56 AM MEDICAL FACILITIES SECTION DIRECTOR OWAT Bicarbonate, P 23 22 - 29 mmol/L 01/23/2023 11:56 AM MEDICAL FACILITIES SECTION DIRECTOR OWAT Anion Gap, P 13 7 - 15 01/23/2023 11:56 AM MEDICAL FACILITIES SECTION DIRECTOR OWAT BUN (Blood Urea Nitrogen), P 20 6 - 21 mg/dL 01/23/2023 11:56 AM MEDICAL FACILITIES SECTION DIRECTOR OWAT Creatinine 0.84 0.59 - 1.04 mg/dL 01/23/2023 11:56 AM MEDICAL FACILITIES SECTION DIRECTOR OWAT Estimated GFR (eGFR) 68 >=60 mL/min/BS A 01/23/2023 11:56 AM MEDICAL FACILITIES SECTION DIRECTOR OWAT Comment: Estimated GFR calculated using the 2020 CKD_EPI creatinine equation. Calcium, Total, P 9.6 8.8 - 10.2 mg/dL 01/23/2023 11:56 AM MEDICAL FACILITIES SECTION DIRECTOR OWAT Glucose, P 99 70 - 140 mg/dL 01/23/2023 11:56 AM MEDICAL FACILITIES SECTION DIRECTOR OWAT Protein, Total, P 7.0 6.3 - 7.9 g/dL 01/23/2023 11:56 AM MEDICAL FACILITIES SECTION DIRECTOR OWAT Albumin, P 4.4 3.5 - 5.0 g/dL 01/23/2023 11:56 AM MEDICAL FACILITIES SECTION DIRECTOR OWAT Aspartate Aminotransferase (AST), P 20 8 - 43 U/L 01/23/2023 11:56 AM MEDICAL FACILITIES SECTION DIRECTOR OWAT Alkaline Phosphatase, P 85 35 - 104 U/L 01/23/2023 11:56 AM MEDICAL FACILITIES SECTION DIRECTOR OWAT Alanine Aminotransferase (ALT), P 11 7 - 45 U/L 01/23/2023 11:56 AM MEDICAL FACILITIES SECTION DIRECTOR OWAT Bilirubin, Total, P 0.3 0.0 - 1.2 mg/dL 01/23/2023 11:56 AM MEDICAL FACILITIES SECTION DIRECTOR OWAT Blood (Blood, Venous) 01/23/2023 9:15 AM MEDICAL FACILITIES SECTION DIRECTOR 01/23/2023 11:17 AM MEDICAL FACILITIES SECTION DIRECTOR Davide Connelly P.A.-C. LAB BLOOD ADD- ON [facility] [address] [place] [address], [facility] OWAT [facility] [address] [place] [address] from Last 3 Months or Most Recently Relevant to Health Maintenance Advance Directives For more information, please contact: [phone] Documents on File Type Date Recorded Patient Derrick Barge Operator Expl anation Advance Directives 03/16/2011 12:00 AM Leg acy document. See document viewer. Care Teams Iphone Developer Relationship Specialty Start Date End Date Davide Connelly P.A.-C. PCP - General Family Medicine 07/11/17
--- OUTSIDE RECORDS SUMMARY | 2023-09-24 14:09 | XMS_ITS | Encounter Summary ---
Author Organization [facility] Address [address] [place] [address] Care Team Providers Care Asphalt Tile Floor Layer Name Role Phone Davide Connelly P.A.-C. Primary Care Provider Reason for Visit * Reason Comments Med Refill Encounter Details Date Type Department Care Team (Late st Contact Info) Description 08/30/2023 Refill Department of Obstetrics and Gynecology in [address] [phone] Kaila Blackburn, CLIENT ADVISOR, C.N.P. [address], [place] [address] Med Refill Social History Tobacco Use Types Packs/Day Years [...] week 01/10/2022 How often do you attend [facility] or gnosticism services? More than 4 times per year 01/10/2022 Do you belong to any clubs o r organizations such as episcopal groups, unions, fraternal or athletic groups, or [...] Answer Date Recorded PHQ-2 Score 0 01/11/2022 [facility] - Occupational [...] Sex Assigned at Female 03/31/2018 8:18 PM MOLDING PRESS OPERATOR Gender Identity Female 03/31/2018 8:18 PM MOLDING PRESS OPERATOR Sexual Orientation Straight 03/31/2018 8: 18 PM MOLDING PRESS OPERATOR documented as of this encounter Plan of Treatment Upcoming Encounters Date Type Department Care Team (Late st Contact Info) Description 10/18/2023 10:00 AM CDT Office Visit Department of Ophthalmology in [place], [place] [address] [phone] Estevan Robledo M.D. [address] [place] [phone] documented as of this encounter Visit Diagnoses Diagnosis Urinary Urge Incontinence documented in this encounter Additional Health Concerns Assessment Noted Time PHQ-9 Depression Total Score: 5 07/30/19 21 9:46 AM CDT documented as of this encounter Care Teams Asphalt Tile Floor Layer Relationship Specialty Start Date End Date Davide Connelly P.A.-C. PCP - General Family Medicine 07/11/17 documented as of this encounter
--- OUTSIDE RECORDS SUMMARY | 2023-09-24 14:09 | XMS_ITS | Encounter Summary ---
Author Organization [facility] Address [address] [place] [address] Care Team Providers Care Speeder Frame Tender Name Role Phone Davide Connelly P.A.-C. Primary Care Provider Reason for Referral * Outpatient (Routine) - Authorized Specialty Diagnoses / Procedures Referred By Contac t Referred To Contact Davide Connelly P.A.-C. [address] [place] [phone] [facility] Region Referral ID Status Reason Start Date Expiration Date V isits Requested Visits Authorized [id number] Authorized 07/02/2023 12/31/2024 1 1 Scheduling Instructions Nurse AWV Do not schedule prior to due date to ensure insurance coverage Visit: Medicare Annual Wellness due on 01/12/2023. Encounter Details Date Type Department Care Team (Late st Contact Info) Description 07/02/2023 Orders Only [facility] [place] Davide Connelly P.A.-C. [address] [place] [phone] Social History Tobacco Use Types Packs/Day Years [...] week 01/10/2022 How often do you attend [facility] or baptism services? More than 4 times per year 01/10/2022 Do you belong to any clubs o r organizations such as pentecostal groups, unions, fraternal or athletic groups, or [...] Answer Date Recorded PHQ-2 Score 0 01/11/2022 [facility] - Occupational Stress Questionnaire Answer Date [...] place to sleep or slept in a jail (including now)? No 01/10/2022 Depression Answer Date [...] Sex Assigned at Female 03/31/2018 8:18 PM SALES PROGRAM MANAGER Gender Identity Female 03/31/2018 8:18 PM SALES PROGRAM MANAGER Sexual Orientation Straight 03/31/2018 8: 18 PM SALES PROGRAM MANAGER documented as of this encounter Plan of Treatment Upcoming Encounters Date Type Department Care Team (Late st Contact Info) Description 10/18/2023 10:00 AM CDT Office Visit Department of Ophthalmology in [place], [place] [address] [place] [phone] Estevan Robledo M.D. [address] [place] [phone] Scheduled Referrals Name Type Priority Associated Diagnoses Orde r Schedule Primary Care nurse visit (clinic) - [facility] Region; Medicare Annual Wellness Outpatient Referral Routine Expected: 07/30/2023, Expires: 12/29/2023 documented as of this encounter Visit Diagnoses Not on filedocumented in this encounter Additional Health Concerns Assessment Noted Time PHQ-9 Depression Total Score: 5 07/30/19 21 9:46 AM CDT documented as of this encounter Care Teams Speeder Frame Tender Relationship Specialty Start Date End Date Davdie Connelly P.A.-C. PCP - General Family Medicine 07/11/17 documented as of this encounter
--- OUTSIDE RECORDS SUMMARY | 2023-09-24 14:09 | XMS_ITS | Encounter Summary ---
Author Organization [facility] Address [address] [place] [address] Care Team Providers Care Business Investor Name Role Phone Davide Connelly P.A.-C. Primary Care Provider Encounter Details Date Type Department Care Team (Late st Contact Info) Description 12/20/2016 Historical Ophthalmology [facility] Estevan Robledo M.D. [address] [place] [phone] Social History Tobacco Use Types Packs/Day Years Used Date Smoking Tobacco: Former Sex and Gender Information Value Date Recorded Sex Assigned at Female 03/31/2018 8:18 PM RAILROAD POLICE Gender Identity Female 03/31/2018 8:18 PM RAILROAD POLICE Sexual Orientation Straight 03/31/2018 8: 18 PM RAILROAD POLICE documented as of this encounter Progress Notes * Estevan Robledo M.D. - 12/20/2016 9:22 AM CDT Eye General CHIEF COMPLAINT replace bandage CL for corneal edema OD HISTORY OF PRESENT ILLNESS Last exam was 5 weeks ago Pt. denies any changes to the [facility] any pain or discomfort to the eye IMPRESSION / REPORT / PLAN #1 Corneal [...] patient currently. CDM Reports - EYEGEN Id: [id number] Status: Fnl documented in this encounter Plan of Treatment Upcoming Encounters Date Type Department Care Team (Late st Contact Info) Description 10/18/2023 10:00 AM CDT Office Visit Department of Ophthalmology in [place], [place] [address] [place] [phone] Estevan Robledo M.D. [address], [place] [phone] documented as of this encounter Visit Diagnoses Not on filedocumented in this encounter Additional Health Concerns Assessment Noted Time PHQ-9 Depression Total Score: 2 06/27/19 17 9:59 AM CDT documented as of this encounter Care Teams Business Investor Relationship Specialty Start Date End Date Davide Connelly P.A.-C. PCP - General Family Medicine 07/11/17 documented as of this encounter
--- OUTSIDE RECORDS SUMMARY | 2023-09-24 14:10 | XMS_ITS | Encounter Summary ---
Author Organization [facility] Address [address] [place] [address] Care Team Providers Care Time Study Engineer Name Role Phone Davide Connelly P.A.-C. Primary Care Provider Encounter Details Date Type Department Care Team (Late st Contact Info) Description 10/19/2009 Historical Ophthalmology [facility] Lonnie Colunga M.D. Social History Tobacco Use Types Packs/Day Years Used Date Smoking Tobacco: Never Assessed Sex and Gender Information Value Date Recorded Sex Assigned at Female 03/31/2018 8:18 PM HEAD GOLF COACH Gender Identity Female 03/31/2018 8:18 PM HEAD GOLF COACH Sexual Orientation Straight 03/31/2018 8: 18 PM HEAD GOLF COACH documented as of this encounter Progress Notes * Lonnie Colunga M.D. - 10/19/2009 8:39 AM CDT Eye General CHIEF COMPLAINT Bullous corneal edema, right eye, secondary to trichiasis HISTORY OF PRESENT ILLNESS pt states the bandage lens has really helped alot. took the pain away instantly and no more tearing! IMPRESSION / REPORT / PLAN #1 Iridocorneal endothelial syndrome, right eye #2 Bullous corneal edema, right eye, secondary to #1 #3 Trichiasis, right eye Looks lilke edama is less of a problem than the filament from the lash we removed last time Plan: Replace Bandage CL (plano) ; RV 1 wk; remove lens then and see how does without it. Will laser lash if it recurs. #3 Secondary angle closure glaucoma goal 14 CT 567,559 Progression right eye vs photos 1994, left stable VF 01/03: right - dense sup and inf arc, slight decrease in MD; left - full; stable both eyes IOP acceptable in both Continue current medications f/u 4-5 months with RUPERTO Allergy to timolol, trusopt, alphagan P 0.15 and 0.1%, Xalatan, Azopt, carteolol #4 Pseudophakia, right eye Seen with LJM. DIAGNOSIS #1 Iridocorneal endothelial syndrome, right eye #2 Bullous corneal edema, right eye, secondary to #1 #3 Trichiasis, right eye CDM Reports - EYEGEN Id: [id number] Status: Fnl documented in this encounter Plan of Treatment Upcoming Encounters Date Type Department Care Team (Late st Contact Info) Description 10/18/2023 10:00 AM CDT Office Visit Department of Ophthalmology in [place], [place] [address] [phone] Estevan Robledo M.D. [address] [phone] documented as of this encounter Visit Diagnoses Not on filedocumented in this encounter Care Teams Time Study Engineer Relationship Specialty Start Date End Date Davide Connelly P.A.-C. PCP - General Family Medicine 07/11/17 documented as of this encounter
--- OUTSIDE RECORDS SUMMARY | 2023-09-24 14:10 | XMS_ITS | Encounter Summary ---
Author Organization [facility] Address [address] [place] [address] Care Team Providers Care Rest Room Attendant Name Role Phone Davide Connelly P.A.-C. Primary Care Provider Encounter Details Date Type Department Care Team (Late Contact Info) Description 03/22/2009 Historical Ophthalmology [facility] Aries Bacon M.D., M.S. [address] [place] [phone] Social History Tobacco Use Types Packs/Day Years Used Date Smoking Tobacco: Never Assessed Sex and Gender Information Value Date Recorded Sex Assigned at Female 03/31/2018 8:18 PM WEED CUTTER Gender Identity Female 03/31/2018 8:18 PM WEED CUTTER Sexual Orientation Straight 03/31/2018 8: 18 PM WEED CUTTER documented as of this encounter Progress Notes * Aries Bacon M.D. - 03/22/2009 9:01 AM CST Eye Postoperative MULTI-VISIT DOCUMENT This document contains multiple patient visits and is available for review in Document Viewer. CDM Reports - EYEPO Id: [id number] Status: Fnl documented in this encounter Plan of Treatment Upcoming Encounters Date Type Department Care Team (Late st Contact Info) Description 10/18/2023 10:00 AM CDT Office Visit Department of Ophthalmology in [place], [place] [address] [place] [phone] Estevan Robledo M.D. [address] [place] [phone] documented as of this encounter Visit Diagnoses Not on filedocumented in this encounter Care Teams Rest Room Attendant Relationship Specialty Start Date End Date Davide Connelly P.A.-C. PCP - General Family Medicine 07/11/17 documented as of this encounter
--- OUTSIDE RECORDS SUMMARY | 2023-09-24 14:10 | XMS_ITS | Encounter Summary ---
Author Organization [facility] Address [address] [place] [address] Care Team Providers Care Labor Commissioner Name Role Phone Davide Connelly P.A.-C. Primary Care Provider Encounter Details Date Type Department Care Team (Late st Contact Info) Description 12/12/2009 Historical Ophthalmology [facility] Lonnie Colunga M.D. Social History Tobacco Use Types Packs/Day Years Used Date Smoking Tobacco: Never Assessed Sex and Gender Information Value Date Recorded Sex Assigned at Female 03/31/2018 8:18 PM SUGARCANE PLANTER Gender Identity Female 03/31/2018 8:18 PM SUGARCANE PLANTER Sexual Orientation Straight 03/31/2018 8: 18 PM SUGARCANE PLANTER documented as of this encounter Progress Notes * Lonnie Colunga M.D. - 12/12/2009 8:14 AM CDT Eye General CHIEF COMPLAINT 3 week recheck bullous corneal edema, right eye HISTORY OF PRESENT ILLNESS Patient states right eye is very comfortable with bandage contact lens in place. Here for monthly lens return. 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 [address] [place] [phone] documented as of this encounter Visit Diagnoses Not on filedocumented in this encounter Care Teams Labor Commissioner Relationship Specialty Start Date End Date Davide Connelly P.A.-C. PCP - General Family Medicine 07/11/17 documented as of this encounter
--- OUTSIDE RECORDS SUMMARY | 2023-09-24 14:10 | XMS_ITS | Encounter Summary ---
Author Organization [facility] Address [address] [place] [address] Care Team Providers Care Line Director Name Role Phone Davide Connelly P.A.-C. Primary Care Provider Encounter Details Date Type Department Care Team (Late st Contact Info) Description 11/10/2007 Historical Ophthalmology [facility] Aries Bacon M.D., M.S. [address] [place] [phone] Social History Tobacco Use Types Packs/Day Years Used Date Smoking Tobacco: Never Assessed Sex and Gender Information Value Date Recorded Sex Assigned at Female 03/31/2018 8:18 PM HOT BILLET SHEAR OPERATOR Gender Identity Female 03/31/2018 8:18 PM HOT BILLET SHEAR OPERATOR Sexual Orientation Straight 03/31/2018 8: 18 PM HOT BILLET SHEAR OPERATOR documented as of this encounter Progress Notes * Aries Bacon M.D. - 11/10/2007 7:35 AM CDT Eye General CHIEF COMPLAINT started on Travatan Z HISTORY OF PRESENT ILLNESS This is a 72 year old female here for reaction to cartelol with red and itching eyes. She stopped Alphagan 0.1% and cartelolol around 3 months ago. She is now on Travatan Z in right eye and that seems to be doing OK for now. Vision has been stable. Patient denies ocular pain. Patient denies flashesof light. Patient states no changes noticed in floaters. 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 CT 567,559 Progression right eye vs photos 1994, left stable VF 05/02: right - dense sup and inf arc; left - full; stable IOP borderline Allergy to timolol, trusopt, alphagan P 0.15 and 0.1%, Xalatan, Azopt, carteolol Currently tolerating Travatan-Z Continue current medications f/u 4 months with RUPERTO - if progression, consider DENSITY CONTROL PUNCHER #2 pseudophakia, right eye DIAGNOSIS #1 Iridocorneal endothelial syndrome, right eye #2 pseudophakia, right eye CDM Reports - EYEGEN Id: [id number] Status: Fnl documented in this encounter Plan of Treatment Upcoming Encounters Date Type Department Care Team (Late st Contact Info) Description 10/18/2023 10:00 AM CDT Office Visit Department of Ophthalmology in [place], [place] [address] [phone] Estevan Robledo M.D. [address] [phone] documented as of this encounter Visit Diagnoses Not on filedocumented in this encounter Care Teams Line Director Relationship Specialty Start Date End Date Davide Connelly P.A.-C. PCP - General Family Medicine 07/11/17 documented as of this encounter
--- OUTSIDE RECORDS SUMMARY | 2023-09-24 14:10 | XMS_ITS | Encounter Summary ---
Author Organization [facility] Address [address] [place] [address] Care Team Providers Care Fire Sprinkler Inspector Name Role Phone Davide Connelly P.A.-C. Primary Care Provider Encounter Details Date Type Department Care Team (Late st Contact Info) Description 09/01/2009 Historical Ophthalmology [facility] Ashlyn Clark C.O.AJonny [address] [place] [phone] Social History Tobacco Use Types Packs/Day Years Used Date Smoking Tobacco: Never Assessed Sex and Gender Information Value Date Recorded Sex Assigned at Female 03/31/2018 8:18 PM ASSOCIATE MEDIA PLANNER Gender Identity Female 03/31/2018 8:18 PM ASSOCIATE MEDIA PLANNER Sexual Orientation Straight 03/31/2018 8: 18 PM ASSOCIATE MEDIA PLANNER documented as of this encounter Progress Notes * Ashlyn Clark C.O.A. - 09/01/2009 9:01 AM CDT Eye Subsequent Visit HISTORY OF PRESENT ILLNESS No changes since last visit. Vision in right eye is not any better. Seems to get worse at various times of the day. Returns for visual field testing today. Will be seeing Dr. Bacon tomorrow (09/02/09). CDM Reports - EYESV Id: [id number] Status: Fnl documented in this encounter Plan of Treatment Upcoming Encounters Date Type Department Care Team (Late st Contact Info) Description 10/18/2023 10:00 AM CDT Office Visit Department of Ophthalmology in [place], [place] [address] [place] [phone] Estevan Robledo M.D. [address] [place] [phone] documented as of this encounter Visit Diagnoses Not on filedocumented in this encounter Care Teams Fire Sprinkler Inspector Relationship Specialty Start Date End Date Davide Connelly P.A.-C. PCP - General Family Medicine 07/11/17 documented as of this encounter
--- OUTSIDE RECORDS SUMMARY | 2023-09-24 14:10 | XMS_ITS | Encounter Summary ---
Author Organization [facility] Address [address] [place] [address] Care Team Providers Care Safety Tech Name Role Phone Davide Connelly P.A.-C. Primary Care Provider Encounter Details Date Type Department Care Team (Late st Contact Info) Description 09/12/2007 Historical Ophthalmology [facility] Aries Bacon M.D., M.S. [address] [place] [phone] Social History Tobacco Use Types Packs/Day Years Used Date Smoking Tobacco: Never Assessed Sex and Gender Information Value Date Recorded Sex Assigned at Female 03/31/2018 8:18 PM TOP COLLAR BASTER Gender Identity Female 03/31/2018 8:18 PM TOP COLLAR BASTER Sexual Orientation Straight 03/31/2018 8: 18 PM TOP COLLAR BASTER documented as of this encounter Progress Notes * Aries Bacon M.D. - 09/12/2007 9:16 AM CDT Eye General CHIEF COMPLAINT Follow up due to Xalatan reaction HISTORY OF PRESENT ILLNESS This 72 year old female returns for follow up due to Xalatan reaction. , right eye, x 2 weeks, constantly. Patient notes vision is stable since last visit. Burning, right eye, x 2 weeks, constantly. She denies flashes, floaters. Vision is single. 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 CT 567,559 Progression right eye vs photos 1994, left stable VF 05/02: right - dense sup and inf arc; left - full; stable IOP acceptable Allergy to timolol, trusopt; alphagan P 0.15%?, Xalatan and Azopt Currently tolerating Alphagan P 0.1% Continue current medications If she develops allergy to Alphagan P 0.1% then Travatan-Z may be an option f/u 4 months with RUPERTO #2 pseudophakia, right eye DIAGNOSIS #1 Iridocorneal endothelial syndrome, right eye #2 pseudophakia, right eye CDM Reports - EYEGEN Id: [id number] Status: Fnl documented in this encounter Plan of Treatment Upcoming Encounters Date Type Department Care Team (Late st Contact Info) Description 10/18/2023 10:00 AM CDT Office Visit Department of Ophthalmology in [place], [place] [address] [phone] Estevan Robledo M.D. [address] [place] [phone] documented as of this encounter Visit Diagnoses Not on filedocumented in this encounter Care Teams Safety Tech Relationship Specialty Start Date End Date Davide Connelly P.A.-C. PCP - General Family Medicine 07/11/17 documented as of this encounter
--- OUTSIDE RECORDS SUMMARY | 2023-09-24 14:10 | XMS_ITS | Encounter Summary ---
Author Organization [facility] Address [address] [place] [address] Care Team Providers Care Welt Stitch Cleaner Name Role Phone Davide Connelly P.A.-C. Primary Care Provider Encounter Details Date Type Department Care Team (Late st Contact Info) Description 01/14/2012 Historical Ophthalmology [facility] Aries Bacon M.D., M.S. [address] [place] [phone] Social History Tobacco Use Types Packs/Day Years Used Date Smoking Tobacco: Never Assessed Sex and Gender Information Value Date Recorded Sex Assigned at Female 03/31/2018 8:18 PM PROFESSOR OF PHYSICS Gender Identity Female 03/31/2018 8:18 PM PROFESSOR OF PHYSICS Sexual Orientation Straight 03/31/2018 8: 18 PM PROFESSOR OF PHYSICS documented as of this encounter Progress Notes * Aries Bacon M.D. - 01/14/2012 1:29 PM CST Eye General CHIEF COMPLAINT glaucoma HISTORY OF PRESENT ILLNESS Patient returns for a glaucoma check, both eyes, which is constant, for many years. 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 [address] [place] [phone] documented as of this encounter Visit Diagnoses Not on filedocumented in this encounter Care Teams Welt Stitch Cleaner Relationship Specialty Start Date End Date Davide Connelly P.A.-C. PCP - General Family Medicine 07/11/17 documented as of this encounter
--- OUTSIDE RECORDS SUMMARY | 2023-09-24 14:10 | XMS_ITS | Encounter Summary ---
Author Organization [facility] Address [address] [place] [address] Care Team Providers Care Candle Molder Hand Name Role Phone Davide Connelly P.A.-C. Primary Care Provider Encounter Details Date Type Department Care Team (Late st Contact Info) Description 08/04/2015 Historical Ophthalmology RST OPH Estevan Robledo M.D. [address], [place] [phone] Social History Tobacco Use Types Packs/Day Years Used Date Smoking Tobacco: Never Assessed Sex and Gender Information Value Date Recorded Sex Assigned at Female 03/31/2018 8:18 PM STRIKE OPERATIONS OFFICER Gender Identity Female 03/31/2018 8:18 PM STRIKE OPERATIONS OFFICER Sexual Orientation Straight 03/31/2018 8: 18 PM STRIKE OPERATIONS OFFICER documented as of this encounter Progress Notes * Estevan Robledo M.D. - 08/04/2015 10:23 AM CDT Eye General HISTORY OF PRESENT ILLNESS Addendum to CDM note from May visit- CDM note no longer in database. IMPRESSION / REPORT / PLAN #1 Corneal edema right eye. Stable with bandage contact lens. #2 Trichiasis right upper lid. Plan:. Forceps epilation. Replace bandage contact lens right eye. F/u one month. III/epil DIAGNOSIS #1 Corneal edema right eye. Stable with bandage contact lens. #2 Trichiasis right upper lid. CDM Reports - EYEGEN Id: [id number] Status: Fnl documented in this encounter Plan of Treatment Upcoming Encounters Date Type Department Care Team (Late st Contact Info) Description 10/18/2023 10:00 AM CDT Office Visit Department of Ophthalmology in [place], [place] [address], [place] [phone] Estevan Robledo M.D. [address], [place] [phone] documented as of this encounter Visit Diagnoses Not on filedocumented in this encounter Additional Health Concerns Assessment Noted Time PHQ-9 Depression Total Score: 1 06/23/19 16 12:15 PM CDT documented as of this encounter Care Teams Candle Molder Hand Relationship Specialty Start Date End Date Davide Connelly P.A.-C. PCP - General Family Medicine 07/11/17 documented as of this encounter
--- OUTSIDE RECORDS SUMMARY | 2023-09-24 14:10 | XMS_ITS | Encounter Summary ---
Author Organization [facility] Address [address] [place] [address] Care Team Providers Care Campus Administrator Name Role Phone Davide Connelly P.A.-C. Primary Care Provider Encounter Details Date Type Department Care Team (Late st Contact Info) Description 09/02/2009 Historical Ophthalmology RST OPH Aries Bacon M.D., M.S. [address] [place] [phone] Social History Tobacco Use Types Packs/Day Years Used Date Smoking Tobacco: Never Assessed Sex and Gender Information Value Date Recorded Sex Assigned at Female 03/31/2018 8:18 PM MANAGER ORACLE Gender Identity Female 03/31/2018 8:18 PM MANAGER ORACLE Sexual Orientation Straight 03/31/2018 8: 18 PM MANAGER ORACLE documented as of this encounter Progress Notes * Aries Bacon M.D. 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 She is having a lot of scratching on right eye, then whyte. She describes it as having a 24/7 eye last in eye. Vision seems to vary in right eye, today seems to be worse. Denies flashes of light and floaters. IMPRESSION / REPORT / PLAN #1 Iridocorneal endothelial syndrome, right eye Now developing bullae despite acceptable IOP Will start on Jose Maria 5% qid and ointment at night f/u 1 month - if no improvement, will refer to cornea #2 Secondary angle closure glaucoma goal 14 CT 567,559 Progression right eye vs photos 1995, left stable VF 01/03: right - dense sup and inf arc, slight decrease in MD; left - full; stable both eyes IOP acceptable in both Continue current medications f/u 6 months Allergy to timolol, trusopt, alphagan P 0.15 and 0.1%, Xalatan, Azopt, carteolol #3 Pseudophakia, right eye DIAGNOSIS #1 Iridocorneal endothelial syndrome, 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 [address] [phone] documented as of this encounter Visit Diagnoses Not on filedocumented in this encounter Care Teams Campus Administrator Relationship Specialty Start Date End Date Davide Connelly P.A.-C. PCP - General Family Medicine 07/11/17 documented as of this encounter
--- OUTSIDE RECORDS SUMMARY | 2023-09-24 14:10 | XMS_ITS | Encounter Summary ---
Author Organization [facility] Address [address] [place] [address] Care Team Providers Care Rand Butting Machine Operator Name Role Phone Davide Connelly P.A.-C. Primary Care Provider Encounter Details Date Type Department Care Team (Late st Contact Info) Description 11/21/2009 Historical Ophthalmology RST OPH Lonnie Colunga M.D. Social History Tobacco Use Types Packs/Day Years Used Date Smoking Tobacco: Never Assessed Sex and Gender Information Value Date Recorded Sex Assigned at Female 03/31/2018 8:18 PM HOOKER INSPECTOR Gender Identity Female 03/31/2018 8:18 PM HOOKER INSPECTOR Sexual Orientation Straight 03/31/2018 8: 18 PM HOOKER INSPECTOR documented as of this encounter Progress Notes * Lonnie Colunga M.D. - 11/21/2009 10:12 AM CDT Eye General CHIEF COMPLAINT recheck Bullous corneal edema, right eye, secondary to trichiasis HISTORY OF PRESENT ILLNESS pt notes shooting pain, photophobia and watering and blurred vision over the past few weeks since last visit.. she states shes just miserable her teeth even hurt... 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 Allergy to timolol, trusopt, alphagan P 0.15 and 0.1%, Xalatan, Azopt, carteolol #4 Pseudophakia, right eye Seen with LJM. 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 [address], [place] [phone] documented as of this encounter Visit Diagnoses Not on filedocumented in this encounter Care Teams Rand Butting Machine Operator Relationship Specialty Start Date End Date Dvaide Connelly P.A.-C. PCP - General Family Medicine 07/11/17 documented as of this encounter
--- OUTSIDE RECORDS SUMMARY | 2023-09-24 14:10 | XMS_ITS | Encounter Summary ---
Author Organization [facility] Address [address] [place] [address] Care Team Providers Care Skiver Heel Tap Name Role Phone Davide Connelly P.A.-C. Primary Care Provider Encounter Details Date Type Department Care Team (Late st Contact Info) Description 07/22/2009 Historical Ophthalmology RST OPH Aries Bacon M.D., M.S. [address] [place] [phone] Social History Tobacco Use Types Packs/Day Years Used Date Smoking Tobacco: Never Assessed Sex and Gender Information Value Date Recorded Sex Assigned at Female 03/31/2018 8:18 PM INDUSTRIAL DIAMOND POLISHER Gender Identity Female 03/31/2018 8:18 PM INDUSTRIAL DIAMOND POLISHER Sexual Orientation Straight 03/31/2018 8: 18 PM INDUSTRIAL DIAMOND POLISHER documented as of this encounter Progress Notes * Aries Bacon M.D. - 07/22/2009 8:31 AM CDT Eye General CHIEF COMPLAINT Feeling of a sheet of wax paper over right eye HISTORY OF PRESENT ILLNESS This is a 74 year old female here for limited vision in right eye, feels like a sheet of wax paper over her eye; started 3 weeks ago; some days are constant and some are on and off; extra strength Tylenol helped make the sheet go away. She states it also feels like an eyelash in right eye, scratchy, several years. She has occasional dull pain, right eye; several years. Blurred vision; right ey e; x 3 weeks; constantly; symptoms are severe. Denies flashes of light and floaters. [place] and is concerned about being far away. Patient has a history of Iridocorneal endothelial syndrome, right eye and Pseudophakia, right eye. 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 CT 567,559 Progression right eye vs photos 1994, left stable VF 01/03: right - dense sup and inf arc, slight decrease in MD; left - full; stable both eyes IOP borderline right Will cont current meds for now f/u 3-4 months - if IOP higher, consider additional BUTTER MAKER Allergy to timolol, trusopt, alphagan P 0.15 and 0.1%, Xalatan, Azopt, carteolol #2 Pseudophakia, right eye Reason for blurred vision unclear. May be due to floaters. Recommend call if vision is particularlyblurred - would be useful to examine at that time. DIAGNOSIS #1 Iridocorneal endothelial syndrome, right eye #2 Pseudophakia, right eye CDM Reports - EYEGEN Id: [id number] Status: Fnl documented in this encounter Plan of Treatment Upcoming Encounters Date Type Department Care Team (Late st Contact Info) Description 10/18/2023 10:00 AM CDT Office Visit Department of Ophthalmology in [place], [place] [address] [phone] Estevan Robledo M.D. [address] [place] [phone] documented as of this encounter Visit Diagnoses Not on filedocumented in this encounter Care Teams Skiver Heel Tap Relationship Specialty Start Date End Date Davide Connelly P.A.-C. PCP - General Family Medicine 07/11/17 documented as of this encounter
--- OUTSIDE RECORDS SUMMARY | 2023-09-24 14:10 | XMS_ITS | Encounter Summary ---
Author Organization [facility] Address [address] [place] [address] Care Team Providers Care Welfare Worker Name Role Phone Davide Connelly P.A.-C. Primary Care Provider Encounter Details Date Type Department Care Team (Late Contact Info) Description 04/19/2010 Historical Ophthalmology RST OPH Nciole Berman, C.O.A. Social History Tobacco Use Types Packs/Day Years Used Date Smoking Tobacco: Never Assessed Sex and Gender Information Value Date Recorded Sex Assigned at Female 03/31/2018 8:18 PM PURCHASING CONTRACTING CLERK Gender Identity Female 03/31/2018 8:18 PM PURCHASING CONTRACTING CLERK Sexual Orientation Straight 03/31/2018 8: 18 PM PURCHASING CONTRACTING CLERK documented as of this encounter Progress Notes * Nicole Berman, C.O.A. - 04/19/2010 9:13 AM CST Eye Subsequent Visit HISTORY OF PRESENT ILLNESS Preop checklist: preop instructions given, glasses read, informed consent documented in Informed Consent (IC) section. CDM Reports - EYESV Id: [id number] Status: Fnl documented in this encounter Plan of Treatment Upcoming Encounters Date Type Department Care Team (Late Contact Info) Description 10/18/2023 10:00 AM CDT Office Visit Department of Ophthalmology in [place], [place] [address] [place] [phone] Estevan Robledo M.D. [address] [place] [phone] documented as of this encounter Visit Diagnoses Not on filedocumented in this encounter Care Teams Welfare Worker Relationship Specialty Start Date End Date Davide Connelly P.A.-C. PCP - General Family Medicine 07/11/17 documented as of this encounter
--- OUTSIDE RECORDS SUMMARY | 2023-09-24 14:10 | XMS_ITS | Encounter Summary ---
Author Organization [facility] Address [address] [place] [address] Care Team Providers Care Plant Taxonomist Name Role Phone Davide Connelly P.A.-C. Primary Care Provider Encounter Details Date Type Department Care Team (Late st Contact Info) Description 01/18/2009 Historical Ophthalmology RST OPH Aries Bacon M.D., M.S. [address] [place] [phone] Social History Tobacco Use Types Packs/Day Years Used Date Smoking Tobacco: Never Assessed Sex and Gender Information Value Date Recorded Sex Assigned at Female 03/31/2018 8:18 PM HIGH SPEED WARPER TENDER Gender Identity Female 03/31/2018 8:18 PM HIGH SPEED WARPER TENDER Sexual Orientation Straight 03/31/2018 8: 18 PM HIGH SPEED WARPER TENDER documented as of this encounter Progress Notes * Aries Bacon M.D. - 01/18/2009 9:10 AM CST Eye General CHIEF COMPLAINT glaucoma check HISTORY OF PRESENT ILLNESS Patient returns for a glaucoma check, both eyes, which is constant, for many years. No vision changes. Occasionally she will get a bad headache and loses vision in right eye lasting until the aspirinkicks in. Denies eye pain, flashing lights, or double vision. Continues to have floaters which come and go. 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 CT 567,559 Progression right eye vs photos 1994, left stable VF 01/03: right - dense sup and inf arc, slight decrease in MD; left - full; stable both eyes IOP too high Allergy to timolol, trusopt, alphagan P 0.15 and 0.1%, Xalatan, Azopt, carteolol Discussed treatment options - recommend cyclophotocoagulation, right eye Discussed risks, goals, alternatives, advance directives, and the necessity of other members of thehealthcare team participating in the procedure with the patient (or legal field support representative and otherspresent during the discussion). The patient understands. All questions answered and consent given. Schedule for Mar 09 Continue current medications #2 pseudophakia, right eye DIAGNOSIS #1 Iridocorneal endothelial syndrome, right eye #2 pseudophakia, right eye CDM Reports - EYEGEN Id: [id number] Status: Fnl documented in this encounter Plan of Treatment Upcoming Encounters Date Type Department Care Team (Late st Contact Info) Description 10/18/2023 10:00 AM CDT Office Visit Department of Ophthalmology in [place], [place] [address] [place] [phone] Estevan Robledo M.D. [address], [place] [phone] documented as of this encounter Visit Diagnoses Not on filedocumented in this encounter Care Teams Plant Taxonomist Relationship Specialty Start Date End Date Davide Connelly P.A.-C. PCP - General Family Medicine 07/11/17 documented as of this encounter
--- OUTSIDE RECORDS SUMMARY | 2023-09-24 14:10 | XMS_ITS | Encounter Summary ---
Author Organization [facility] Address [address] [place] [address] Care Team Providers Care Information Manager Name Role Phone Davide Connelly P.A.-C. Primary Care Provider Encounter Details Date Type Department Care Team (Late st Contact Info) Description 10/25/2009 Historical Ophthalmology RST OPH Lonnie Colunga M.D. Social History Tobacco Use Types Packs/Day Years Used Date Smoking Tobacco: Never Assessed Sex and Gender Information Value Date Recorded Sex Assigned at Female 03/31/2018 8:18 PM INFORMATION CLERK Gender Identity Female 03/31/2018 8:18 PM INFORMATION CLERK Sexual Orientation Straight 03/31/2018 8: 18 PM INFORMATION CLERK documented as of this encounter Progress Notes * Lonnie Colunga M.D. - 10/25/2009 8:24 AM CDT Eye General CHIEF COMPLAINT recheck Bullous corneal edema, right eye, secondary to trichiasis HISTORY OF PRESENT ILLNESS She made notes after her last exam: and Sat wonderful, clear vision. Saturday: very scratchy, later clouded over, limited vision, and then no vision, in evening watering and runny nose, dull pain. 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 Come earlier if bad pain Progression right eye vs photos 1994, left [...] right eye CDM Reports - EYEGEN Id: [id number] Status: Fnl documented in this encounter Plan of Treatment Upcoming Encounters Date Type Department Care Team (Late st Contact Info) Description 10/18/2023 10:00 AM CDT Office Visit Department of Ophthalmology in [place], [place] [address] [phone] Estevan Robledo M.D. [address] [phone] documented as of this encounter Visit Diagnoses Not on filedocumented in this encounter Care Teams Information Manager Relationship Specialty Start Date End Date Davide Connelly P.A.-C. PCP - General Family Medicine 07/11/17 documented as of this encounter
--- OUTSIDE RECORDS SUMMARY | 2023-09-24 14:10 | XMS_ITS | Encounter Summary ---
Author Organization [facility] Address [address] [place] [address] Care Team Providers Care Size Tester Name Role Phone Davide Connelly P.A.-C. Primary Care Provider Encounter Details Date Type Department Care Team (Late st Contact Info) Description 06/13/2009 Historical Ophthalmology RST OPH Aries Bacon M.D., M.S. [address] [place] [phone] Social History Tobacco Use Types Packs/Day Years Used Date Smoking Tobacco: Never Assessed Sex and Gender Information Value Date Recorded Sex Assigned at Female 03/31/2018 8:18 PM ART CONSERVATOR Gender Identity Female 03/31/2018 8:18 PM ART CONSERVATOR Sexual Orientation Straight 03/31/2018 8: 18 PM ART CONSERVATOR documented as of this encounter Progress Notes * Aries Bacon M.D. - 06/13/2009 11:57 AM CDT Eye General CHIEF COMPLAINT glaucoma check HISTORY OF PRESENT ILLNESS Patient returns for a glaucoma check, right eye, which is constant, for years. No vision changes. Denies eye pain, flashing lights, floaters or double vision. For the past 3-4 months, feels that she has something in the right eye, constantly. 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 CT 567,559 Progression right eye vs photos 1994, left stable VF 01/03: right - dense sup and inf arc, slight decrease in MD; left - full; stable both eyes IOP starting to increase - now a little high in right Will cont current meds for now f/u 3-4 months - if IOP higher, consider additional CARTON STAMPER Allergy to timolol, trusopt, alphagan P 0.15 and 0.1%, Xalatan, Azopt, carteolol #2 Pseudophakia, right eye DIAGNOSIS #1 Iridocorneal endothelial syndrome, right eye #2 Pseudophakia, right eye CDM Reports - EYEGEN Id: [id number] Status: Fnl documented in this encounter Plan of Treatment Upcoming Encounters Date Type Department Care Team (Late st Contact Info) Description 10/18/2023 10:00 AM CDT Office Visit Department of Ophthalmology in [place], [place] [address] [place] [phone] Estevan Robledo M.D. [address] [place] [phone] documented as of this encounter Visit Diagnoses Not on filedocumented in this encounter Care Teams Size Tester Relationship Specialty Start Date End Date Davide Connelly P.A.-C. PCP - General Family Medicine 07/11/17 documented as of this encounter
--- OUTSIDE RECORDS SUMMARY | 2023-09-24 14:10 | XMS_ITS | Encounter Summary ---
Author Organization [facility] Address [address] [place] [address] Care Team Providers Care Mixer Wet Pour Name Role Phone Davide Connelly P.A.-C. Primary Care Provider Encounter Details Date Type Department Care Team (Late st Contact Info) Description 01/17/2010 Historical Ophthalmology RST OPH Lonnie Colunga M.D. Social History Tobacco Use Types Packs/Day Years Used Date Smoking Tobacco: Never Assessed Sex and Gender Information Value Date Recorded Sex Assigned at Female 03/31/2018 8:18 PM RADIOPHARMACIST Gender Identity Female 03/31/2018 8:18 PM RADIOPHARMACIST Sexual Orientation Straight 03/31/2018 8: 18 PM RADIOPHARMACIST documented as of this encounter Progress Notes * Lonnie Colunga M.D. - 01/17/2010 8:22 AM CST Eye General CHIEF COMPLAINT recheck bullous corneal edema, right eye HISTORY OF PRESENT ILLNESS Patient states right eye is very comfortable with bandage contact lens in place- she ?s about when to have her laser surgery done. 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 Allergy to timolol, trusopt, alphagan P 0.15 and 0.1%, Xalatan, Azopt, carteolol #3 Pseudophakia, right eye Seen with LJDandre. 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 [address] [place] [phone] documented as of this encounter Visit Diagnoses Not on filedocumented in this encounter Care Teams Mixer Wet Pour Relationship Specialty Start Date End Date Davide Connelly P.A.-C. PCP - General Family Medicine 07/11/17 documented as of this encounter
--- OUTSIDE RECORDS SUMMARY | 2023-09-24 14:10 | XMS_ITS | Encounter Summary ---
Author Organization [facility] Address [address] [place] [address] Care Team Providers Care Exchange Teller Name Role Phone Davide Connelly P.A.-C. Primary Care Provider Encounter Details Date Type Department Care Team (Late st Contact Info) Description 10/14/2009 Historical Ophthalmology RST OPH Tyler Saavedra M.D. [address] [place] [phone] Social History Tobacco Use Types Packs/Day Years Used Date Smoking Tobacco: Never Assessed Sex and Gender Information Value Date Recorded Sex Assigned at Female 03/31/2018 8:18 PM CARPENTER ASSISTANT Gender Identity Female 03/31/2018 8:18 PM CARPENTER ASSISTANT Sexual Orientation Straight 03/31/2018 8: 18 PM CARPENTER ASSISTANT documented as of this encounter Progress Notes * Tyler Saavedra M.D. - 10/14/2009 2:33 PM CDT Eye General CHIEF COMPLAINT Pain in right eye HISTORY OF PRESENT ILLNESS This is a 74 year old female here for pain in right eye; Pain; right eye; since last visit; on and off; symptoms reported at level of 9/10. Patient has a history of Iridocorneal endothelial syndrome,right eye, secondary angle closure glaucoma and pseudophakia, right eye. Patient states she has been getting headaches at least once a day. No flashes of light. No change in floaters since last visit. IMPRESSION / REPORT / PLAN #1 Iridocorneal endothelial syndrome, right eye #2 Bullous corneal edema, right eye, secondary to #1 #3 Trichiasis, right eye Lashes epilated temporally today, filament removed. Plan: Bandage CL (plano) placed today, stop Jose Maria. Will see LJM next week for like DSEK vs stromal puncture #3 Secondary angle closure glaucoma goal 14 [...] secondary to #1 #3 Trichiasis, right eye #3 Secondary angle closure glaucoma #4 Pseudophakia, right eye CDM Reports - EYEGEN Id: [id number] Status: Fnl documented in this encounter Plan of Treatment Upcoming Encounters Date Type Department Care Team (Late st Contact Info) Description 10/18/2023 10:00 AM CDT Office Visit Department of Ophthalmology in [place], [place] [address] [phone] Estevan Robledo M.D. [address] [place] [phone] documented as of this encounter Visit Diagnoses Not on filedocumented in this encounter Care Teams Exchange Teller Relationship Specialty Start Date End Date Davide Connelly P.A.-C. PCP - General Family Medicine 07/11/17 documented as of this encounter
--- OUTSIDE RECORDS SUMMARY | 2023-09-24 14:10 | XMS_ITS | Encounter Summary ---
Author Organization [facility] Address [address] [place] [address] Care Team Providers Care System Configuration Specialist Name Role Phone Davide Connelly P.A.-C. Primary Care Provider Encounter Details Date Type Department Care Team (Late st Contact Info) Description 05/22/2010 Historical Ophthalmology RST OPH Lonnie Colunga M.D. Social History Tobacco Use Types Packs/Day Years Used Date Smoking Tobacco: Never Assessed Sex and Gender Information Value Date Recorded Sex Assigned at Female 03/31/2018 8:18 PM ORACLE APPLICATIONS ANALYST Gender Identity Female 03/31/2018 8:18 PM ORACLE APPLICATIONS ANALYST Sexual Orientation Straight 03/31/2018 8: 18 PM ORACLE APPLICATIONS ANALYST documented as of this encounter Progress Notes * Lonnie Colunga M.D. - 05/22/2010 12:34 PM CDT Eye Postoperative MULTI-VISIT DOCUMENT This document contains multiple patient visits and is available for review in Document Viewer. CDM Reports - EYEPO Id: [id number] Status: Fnl documented in this encounter Plan of Treatment Upcoming Encounters Date Type Department Care Team (Late st Contact Info) Description 10/18/2023 10:00 AM CDT Office Visit Department of Ophthalmology in [place], [place] [address], [place] [address] Estevan Robledo M.D. [address], [place] [phone] documented as of this encounter Visit Diagnoses Not on filedocumented in this encounter Care Teams System Configuration Specialist Relationship Specialty Start Date End Date Davide Connelly P.A.-C. PCP - General Family Medicine 07/11/17 documented as of this encounter
--- OUTSIDE RECORDS SUMMARY | 2023-09-24 14:10 | XMS_ITS | Encounter Summary ---
Author Organization [facility] Address [address] [place] [address] Care Team Providers Care Mechanical Maintenance Engineer Name Role Phone Davide Connelly P.A.-C. Primary Care Provider Encounter Details Date Type Department Care Team (Late st Contact Info) Description 03/08/2009 Historical Ophthalmology RST OPH Camila Flowers M.D. [address] [place] [phone] Social History Tobacco Use Types Packs/Day Years Used Date Smoking Tobacco: Never Assessed Sex and Gender Information Value Date Recorded Sex Assigned at Female 03/31/2018 8:18 PM RESEARCH TECH Gender Identity Female 03/31/2018 8:18 PM RESEARCH TECH Sexual Orientation Straight 03/31/2018 8: 18 PM RESEARCH TECH documented as of this encounter Progress Notes * Camila Flowers M.D. - 03/08/2009 9:53 AM CST Eye General CHIEF COMPLAINT glaucoma check HISTORY OF PRESENT ILLNESS Patient returns for a glaucoma check, both eyes, which is constant, for many years. No vision changes. Denies eye pain, flashing lights, or double vision. Continues to have floaters which come and go. Patient is scheduled for Diode laser tomorrow, but would like to see what her pressures are today & meet Dr. Flowers, before going ahead with the laser. 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 IOP not at goal given advanced disease. Goal = 14. Multiple drug intolerances. PACKAGE DYER (cyclophotocoagulation) right eye recommended. Discussed risk vs. benefit CPCright eye including risk bleeding, infection, loss of vision, high IOP, low IOP, anesthesia risk. All questions answered. 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 [address] [place] [phone] documented as of this encounter Visit Diagnoses Not on filedocumented in this encounter Care Teams Mechanical Maintenance Engineer Relationship Specialty Start Date End Date Davide Connelly P.A.-C. PCP - General Family Medicine 07/11/17 documented as of this encounter
--- OUTSIDE RECORDS SUMMARY | 2023-09-24 14:10 | XMS_ITS | Encounter Summary ---
Author Organization [facility] Address [address] [place] [address] Care Team Providers Care Deputy Building Guard Name Role Phone Davide Connelly P.A.-C. Primary Care Provider Encounter Details Date Type Department Care Team (Late st Contact Info) Description 10/03/2010 Historical Ophthalmology RST OPH Aries Bacon M.D., M.S. [address] [place] [phone] Social History Tobacco Use Types Packs/Day Years Used Date Smoking Tobacco: Never Assessed Sex and Gender Information Value Date Recorded Sex Assigned at Female 03/31/2018 8:18 PM RIP SAW OPERATOR Gender Identity Female 03/31/2018 8:18 PM RIP SAW OPERATOR Sexual Orientation Straight 03/31/2018 8: 18 PM RIP SAW OPERATOR documented as of this encounter Progress Notes * Aries Bacon M.D. - 10/03/2010 2:49 PM CDT Eye General CHIEF COMPLAINT 9-Month Return - Secondary angle closure glaucoma HISTORY OF PRESENT ILLNESS Patient is wearing contact bandage lens on right eye. Automated visual field completed. 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 [address] [phone] documented as of this encounter Visit Diagnoses Not on filedocumented in this encounter Care Teams Deputy Building Guard Relationship Specialty Start Date End Date Davide Connelly P.A.-C. PCP - General Family Medicine 07/11/17 documented as of this encounter
--- OUTSIDE RECORDS SUMMARY | 2023-09-24 14:10 | XMS_ITS | Encounter Summary ---
Author Organization [facility] Address [address] [place] [address] Care Team Providers Care Instrument Panel Assembler Name Role Phone Davide Connelly P.A.-C. Primary Care Provider Encounter Details Date Type Department Care Team (Late st Contact Info) Description 01/30/2010 Historical Ophthalmology RST OPH Aries Bacon M.D., M.S. [address] [place] [phone] Social History Tobacco Use Types Packs/Day Years Used Date Smoking Tobacco: Never Assessed Sex and Gender Information Value Date Recorded Sex Assigned at Female 03/31/2018 8:18 PM CANNONEER Gender Identity Female 03/31/2018 8:18 PM CANNONEER Sexual Orientation Straight 03/31/2018 8: 18 PM CANNONEER documented as of this encounter Progress Notes * Aries Bacon M.D. 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 Wearing bandage contact right eye. Denies eye pain, flashing lights, floaters or double vision. 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 [address] [phone] documented as of this encounter Visit Diagnoses Not on filedocumented in this encounter Care Teams Instrument Panel Assembler Relationship Specialty Start Date End Date Davide Connelly P.A.-C. PCP - General Family Medicine 07/11/17 documented as of this encounter
--- OUTSIDE RECORDS SUMMARY | 2023-09-24 14:10 | XMS_ITS | Encounter Summary ---
Author Organization [facility] Address [address] [place] [address] Care Team Providers Care Remote Mortgage Underwriter Name Role Phone Davide Connelly P.A.-C. Primary Care Provider Encounter Details Date Type Department Care Team (Late st Contact Info) Description 10/19/2016 Historical Ophthalmology [facility] OPH Estevan Robledo M.D. [address] [place] [phone] Social History Tobacco Use Types Packs/Day Years Used Date Smoking Tobacco: Former Sex and Gender Information Value Date Recorded Sex Assigned at Female 03/31/2018 8:18 PM REMOTE SENSING SURVEYOR Gender Identity Female 03/31/2018 8:18 PM REMOTE SENSING SURVEYOR Sexual Orientation Straight 03/31/2018 8: 18 PM REMOTE SENSING SURVEYOR documented as of this encounter Progress Notes * Estevan Robledo M.D. - 10/19/2016 8:15 AM CDT Eye General CHIEF COMPLAINT 1mos follow up; BCL change HISTORY OF PRESENT ILLNESS Pt states eyelashes in rt eye bothering. Has FB sensation. All else ok . BCL pulled for change = N&D 8.6 +0.25 lens IMPRESSION / REPORT / PLAN #1 Corneal [...] patient currently. CDM Reports - EYEGEN Id: [id number] Status: Fnl documented in this encounter Plan of Treatment Upcoming Encounters Date Type Department Care Team (Late st Contact Info) Description 10/18/2023 10:00 AM CDT Office Visit Department of Ophthalmology in [place], [place] [address] [place] [phone] Estevan Robledo M.D. [address], [place] [phone] documented as of this encounter Visit Diagnoses Not on filedocumented in this encounter Additional Health Concerns Assessment Noted Time PHQ-9 Depression Total Score: 2 06/27/19 17 9:59 AM CDT documented as of this encounter Care Teams Remote Mortgage Underwriter Relationship Specialty Start Date End Date Davide Connelly P.A.-C. PCP - General Family Medicine 07/11/17 documented as of this encounter
--- OUTSIDE RECORDS SUMMARY | 2023-09-24 14:10 | XMS_ITS | Encounter Summary ---
Author Organization [facility] Address [address] [place] [address] Care Team Providers Care Sewing Room Supervisor Name Role Phone Davide Connelly P.A.-C. Primary Care Provider Encounter Details Date Type Department Care Team (Late st Contact Info) Description 04/01/2008 Historical Ophthalmology RST OPH Aries Bacon M.D., M.S. [address] [place] [phone] Social History Tobacco Use Types Packs/Day Years Used Date Smoking Tobacco: Never Assessed Sex and Gender Information Value Date Recorded Sex Assigned at Female 03/31/2018 8:18 PM PLANER OFFBEARER Gender Identity Female 03/31/2018 8:18 PM PLANER OFFBEARER Sexual Orientation Straight 03/31/2018 8: 18 PM PLANER OFFBEARER documented as of this encounter Progress Notes * Aries Bacon M.D. - 04/01/2008 10:04 AM CST Eye General CHIEF COMPLAINT glaucoma follow up HISTORY OF PRESENT ILLNESS The patient describes poor vision in right eye for the past several years, which is constant, moderate. Patient states that with her current lenses she needs to tip her head down to get clear distance vision. Denies vison changes since last visit. She wants her right eyelid checked to see if there is a sty, scratching my eye for the past couple of months. 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 CT 567,559 Progression right eye vs photos 1994, left stable VF 1/09: right - dense sup and inf arc; left - full; stable both eyes IOP borderline Allergy to timolol, trusopt, alphagan P 0.15 and 0.1%, Xalatan, Azopt, carteolol Currently tolerating Travatan-Z Continue current medications f/u 6 months with RUPERTO - if progression, consider NO BAKE MOLDER #2 pseudophakia, right eye DIAGNOSIS #1 Iridocorneal endothelial syndrome, right eye #2 Pseudophakia, right eye CDM Reports - EYEGEN Id: [id number] Status: Fnl documented in this encounter Plan of Treatment Upcoming Encounters Date Type Department Care Team (Late st Contact Info) Description 10/18/2023 10:00 AM CDT Office Visit Department of Ophthalmology in [place], [place] [address] [phone] Estevan Robledo M.D. [address] [phone] documented as of this encounter Visit Diagnoses Not on filedocumented in this encounter Care Teams Sewing Room Supervisor Relationship Specialty Start Date End Date Davide Connelly P.A.-C. PCP - General Family Medicine 07/11/17 documented as of this encounter
--- OUTSIDE RECORDS SUMMARY | 2023-09-24 14:10 | XMS_ITS | Encounter Summary ---
Author Organization [facility] Address [address] [place] [address] Care Team Providers Care Male Model Name Role Phone Davide Connelly P.A.-C. Primary Care Provider Encounter Details Date Type Department Care Team (Late st Contact Info) Description 10/06/2009 Historical Ophthalmology RST OPH Aries Bacon M.D., M.S. [address] [place] [phone] Social History Tobacco Use Types Packs/Day Years Used Date Smoking Tobacco: Never Assessed Sex and Gender Information Value Date Recorded Sex Assigned at Female 03/31/2018 8:18 PM MARKETING PRODUCER Gender Identity Female 03/31/2018 8:18 PM MARKETING PRODUCER Sexual Orientation Straight 03/31/2018 8: 18 PM MARKETING PRODUCER documented as of this encounter Progress Notes * Aries Bacon M.D. - 10/06/2009 9:47 AM CDT Eye General CHIEF COMPLAINT Patient here for scratchy right eye, cant see out of right eye. HISTORY OF PRESENT ILLNESS This is a 74 year old female here for follow up Iridocorneal endothelial syndrome, right eye; pain in right eye, pain at a 1, constant, since last visit. Right eye is scratchy, watery. If patient closes left eye she states has no vision in right eye. No flashes of light and floaters IMPRESSION / REPORT / PLAN #1 Iridocorneal endothelial syndrome, right eye Now developing bullae despite acceptable IOP Vision also worse Arrange Cornea consult Continue Jose Maria 5% qid and ointment at night #2 Secondary angle closure glaucoma goal 14 [...] right eye CDM Reports - EYEGEN Id: [id number] Status: Fnl documented in this encounter Plan of Treatment Upcoming Encounters Date Type Department Care Team (Late st Contact Info) Description 10/18/2023 10:00 AM CDT Office Visit Department of Ophthalmology in [place], [place] [address] [phone] Estevan Robledo M.D. [address] [phone] documented as of this encounter Visit Diagnoses Not on filedocumented in this encounter Care Teams Male Model Relationship Specialty Start Date End Date Davide Connelly P.A.-C. PCP - General Family Medicine 07/11/17 documented as of this encounter
--- OUTSIDE RECORDS SUMMARY | 2023-09-24 14:10 | XMS_ITS | Encounter Summary ---
Author Organization [facility] Address [address] [place] [address] Care Team Providers Care Golf Club Assembler Name Role Phone Davide Connelly P.A.-C. Primary Care Provider Encounter Details Date Type Department Care Team (Late st Contact Info) Description 04/19/2010 Historical Ophthalmology RST OPH Lonnie Colunga M.D. Social History Tobacco Use Types Packs/Day Years Used Date Smoking Tobacco: Never Assessed Sex and Gender Information Value Date Recorded Sex Assigned at Female 03/31/2018 8:18 PM MACHINE GUN MECHANIC Gender Identity Female 03/31/2018 8:18 PM MACHINE GUN MECHANIC Sexual Orientation Straight 03/31/2018 8: 18 PM MACHINE GUN MECHANIC documented as of this encounter Progress Notes * Lonnie Colunga M.D. - 04/19/2010 8:23 AM CST Eye General CHIEF COMPLAINT listing PTK right eye HISTORY OF PRESENT ILLNESS Right eye has been pretty irritated for the past week. Bandage lens changed about 2 weeks ago. PTK scheduled on saturday. Says that the vision in the rt eye is very bad today. 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 [address] [place] [phone] documented as of this encounter Visit Diagnoses Not on filedocumented in this encounter Care Teams Golf Club Assembler Relationship Specialty Start Date End Date Davide Connelly P.A.-C. PCP - General Family Medicine 07/11/17 documented as of this encounter
--- OUTSIDE RECORDS SUMMARY | 2023-09-24 14:11 | XMS_ITS | Encounter Summary ---
Author Organization [facility] Address [address] [place] [address] Care Team Providers Care Stick Feeder Name Role Phone Davide Connelly P.A.-C. Primary Care Provider Encounter Details Date Type Department Care Team (Late st Contact Info) Description 05/27/2002 Historical Ophthalmology RST OPH Farzad Blackburn M.D. Social History Tobacco Use Types Packs/Day Years Used Date Smoking Tobacco: Never Assessed Sex and Gender Information Value Date Recorded Sex Assigned at Female 03/31/2018 8:18 PM ELECTRO MECHANICAL TECHNOLOGIST Gender Identity Female 03/31/2018 8:18 PM ELECTRO MECHANICAL TECHNOLOGIST Sexual Orientation Straight 03/31/2018 8: 18 PM ELECTRO MECHANICAL TECHNOLOGIST documented as of this encounter Progress Notes * Farzad Blackburn M.D. - 05/27/2002 12:00 AM CST Eye General CHIEF COMPLAINT ICE syndrome with glaucoma right eye HISTORY OF PRESENT ILLNESS 67 year old female, follow up for ICE syndrome with glaucoma right eye. She has a stye on the RUL and itches and now the lid and the eye feels full , swollen and itches. She feels the vision has gone down in the OD. Towards the end of the day the OD will get more red and gets headaches. IMPRESSION / REPORT / PLAN #1 iridocorneal endothelial syndrome OD goal 14 RUPERTO 2000 OD double arcs = 1994; OS normal allergy to timolol, trusopt; now irritation and redness from alphagan Rx stop alphagan x2 weeks, then try Ocupress qd OD only return 1 months #2 pseudophakia OD DIAGNOSIS #1 iridocorneal endothelial syndrome OD #2 pseudophakia OD CDM Reports - EYEGEN Id: [id number] Status: Fnl documented in this encounter Plan of Treatment Upcoming Encounters Date Type Department Care Team (Late st Contact Info) Description 10/18/2023 10:00 AM CDT Office Visit Department of Ophthalmology in [place], [place] [address] [place] [phone] Estevan Robledo M.D. [address], [place] [phone] documented as of this encounter Visit Diagnoses Not on filedocumented in this encounter Care Teams Stick Feeder Relationship Specialty Start Date End Date Davide Connelly P.A.-C. PCP - General Family Medicine 07/11/17 documented as of this encounter
--- OUTSIDE RECORDS SUMMARY | 2023-09-24 14:11 | XMS_ITS | Encounter Summary ---
Author Organization [facility] Address [address] [place] [address] Care Team Providers Care Senior Administrative Support Name Role Phone Davide Connelly P.A.-C. Primary Care Provider Encounter Details Date Type Department Care Team (Late st Contact Info) Description 01/18/2003 Historical Ophthalmology RST OPH Farzad Blackburn M.D. Social History Tobacco Use Types Packs/Day Years Used Date Smoking Tobacco: Never Assessed Sex and Gender Information Value Date Recorded Sex Assigned at Female 03/31/2018 8:18 PM DENTAL TREATMENT COORDINATOR Gender Identity Female 03/31/2018 8:18 PM DENTAL TREATMENT COORDINATOR Sexual Orientation Straight 03/31/2018 8: 18 PM DENTAL TREATMENT COORDINATOR documented as of this encounter Progress Notes * Farzad Blackburn M.D. - 01/18/2003 12:00 AM CST Eye General CHIEF COMPLAINT 6 month glaucoma check HISTORY OF PRESENT ILLNESS This is a 67 year old female here for a glaucoma check up. She has a history of ICE syndrome. She does not notice any vision changes. IMPRESSION / REPORT / PLAN #1 iridocorneal endothelial syndrome OD goal 14 RUPERTO 2000 OD double arcs = 1994; OS normal allergy to timolol, trusopt; alphagan; good response to ocupress; no allergy stable return 6 months #2 pseudophakia OD DIAGNOSIS #1 iridocorneal endothelial syndrome OD #2 pseudophakia OD CDM Reports - EYEGEN Id: [id number] Status: Fnl documented in this encounter Plan of Treatment Upcoming Encounters Date Type Department Care Team (Late st Contact Info) Description 10/18/2023 10:00 AM CDT Office Visit Department of Ophthalmology in [place], [place] [address] [place] [phone] Estevan Robledo M.D. [address] [place] [phone] documented as of this encounter Visit Diagnoses Not on filedocumented in this encounter Care Teams Senior Administrative Support Relationship Specialty Start Date End Date Davide Connelly P.A.-C. PCP - General Family Medicine 07/11/17 documented as of this encounter
--- OUTSIDE RECORDS SUMMARY | 2023-09-24 14:11 | XMS_ITS | Encounter Summary ---
Author Organization [facility] Address [address] [place] [address] Care Team Providers Care Energy Specialist Name Role Phone Davide Connelly P.A.-C. Primary Care Provider Encounter Details Date Type Department Care Team (Late st Contact Info) Description 05/15/2007 Historical Ophthalmology RST OPH Aries Bacon M.D., M.S. [address] [place] [phone] Social History Tobacco Use Types Packs/Day Years Used Date Smoking Tobacco: Never Assessed Sex and Gender Information Value Date Recorded Sex Assigned at Female 03/31/2018 8:18 PM CHEMICAL CELL CHANGER Gender Identity Female 03/31/2018 8:18 PM CHEMICAL CELL CHANGER Sexual Orientation Straight 03/31/2018 8: 18 PM CHEMICAL CELL CHANGER documented as of this encounter Progress Notes * Aries Bacon M.D. - 05/15/2007 8:16 AM CDT Eye General CHIEF COMPLAINT Follow up, Iridocorneal endothelial syndrome HISTORY OF PRESENT ILLNESS Patient notes decreased vision in right eye since last visit. No eye pain. No new floaters. Denies flashes and diplopia. Patient states after she puts the drops in she blows her nose for about two hours. She feels her Rx in her new glasses may have something to do with vision problems. [facility] problems with the Rx. She then wentto [facility] 2 times in where she stuck with that Rx and is now wearing those glasses, but stillfeels there is a problem. 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 CT 567,559 Progression right eye vs photos 1994, left stable VF 05/02: right - dense sup and inf arc; left - full; stable allergy to timolol, trusopt; alphagan; and Azopt; good response to ocupress; IOP near goal in righteye. we both agree to sit tight IOP a little high and likely progression based on [facility], photos Add Xalatan New disc photos = exam f/u 6 weeks #2 pseudophakia, right eye DIAGNOSIS #1 Iridocorneal endothelial syndrome, right eye #2 pseudophakia, right eye CDM Reports - EYEGEN Id: [id number] Status: Fnl documented in this encounter Plan of Treatment Upcoming Encounters Date Type Department Care Team (Late st Contact Info) Description 10/18/2023 10:00 AM CDT Office Visit Department of Ophthalmology in [place], [place] [address] [place] [phone] Estevan Robledo M.D. [address] [place] [phone] documented as of this encounter Visit Diagnoses Not on filedocumented in this encounter Care Teams Energy Specialist Relationship Specialty Start Date End Date Davide Connelly P.A.-C. PCP - General Family Medicine 07/11/17 documented as of this encounter
--- OUTSIDE RECORDS SUMMARY | 2023-09-24 14:11 | XMS_ITS | Encounter Summary ---
Author Organization [facility] Address [address] [place] [address] Care Team Providers Care Family Literacy Coordinator Name Role Phone Davide Connelly P.A.-C. Primary Care Provider Encounter Details Date Type Department Care Team (Late st Contact Info) Description 06/26/2002 Historical Ophthalmology RST OPH Farzad Blackburn M.D. Social History Tobacco Use Types Packs/Day Years Used Date Smoking Tobacco: Never Assessed Sex and Gender Information Value Date Recorded Sex Assigned at Female 03/31/2018 8:18 PM WELL LOGGER Gender Identity Female 03/31/2018 8:18 PM WELL LOGGER Sexual Orientation Straight 03/31/2018 8: 18 PM WELL LOGGER documented as of this encounter Progress Notes * Farzad Blackburn M.D. - 06/26/2002 12:00 AM CDT Eye General CHIEF COMPLAINT ICE syndrome with glaucoma OD HISTORY OF PRESENT ILLNESS no problems on ocupress x 2 week THis is a 67 year old female here for a check up because of adding Carteolol hydrochloride to OD only. She has had no vision changes. No irritation. 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 [address], [place] [phone] documented as of this encounter Visit Diagnoses Not on filedocumented in this encounter Care Teams Family Literacy Coordinator Relationship Specialty Start Date End Date Davide Connelly P.A.-C. PCP - General Family Medicine 07/11/17 documented as of this encounter
--- OUTSIDE RECORDS SUMMARY | 2023-09-24 14:11 | XMS_ITS | Encounter Summary ---
Author Organization [facility] Address [address] [place] [address] Care Team Providers Care Drug Abuse Worker Name Role Phone Davide Connelly P.A.-C. Primary Care Provider Encounter Details Date Type Department Care Team (Late st Contact Info) Description 01/03/2004 Historical Ophthalmology RST OPH Farzad Blackburn M.D. Social History Tobacco Use Types Packs/Day Years Used Date Smoking Tobacco: Never Assessed Sex and Gender Information Value Date Recorded Sex Assigned at Female 03/31/2018 8:18 PM MARINE SPECIALIST Gender Identity Female 03/31/2018 8:18 PM MARINE SPECIALIST Sexual Orientation Straight 03/31/2018 8: 18 PM MARINE SPECIALIST documented as of this encounter Progress Notes * Farzad Blackburn M.D. - 01/03/2004 12:00 AM CST Eye General CHIEF COMPLAINT follow up on iridocorneal endothelial syndrome right eye HISTORY OF PRESENT ILLNESS This is a 68 year old female here for a follow up on iridocorneal endothelial syndrome right eye. She has noticed it is more difficult to drive at night and feels the cataract could be getting worse. 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 This is all the patient has ever used since 2002 per patient. #2 pseudophakia OD DIAGNOSIS #1 iridocorneal endothelial syndrome OD #2 pseudophakia OD CDM Reports - EYEGEN Id: [id number] Status: Fnl documented in this encounter Plan of Treatment Upcoming Encounters Date Type Department Care Team (Late st Contact Info) Description 10/18/2023 10:00 AM CDT Office Visit Department of Ophthalmology in [place], [place] [address] [address] Estevan Robledo M.D. [address], [place] [address] documented as of this encounter Visit Diagnoses Not on filedocumented in this encounter Care Teams Drug Abuse Worker Relationship Specialty Start Date End Date Davide Connelly P.A.-C. PCP - General Family Medicine 07/11/17 documented as of this encounter
--- OUTSIDE RECORDS SUMMARY | 2023-09-24 14:11 | XMS_ITS | Encounter Summary ---
Author Organization [facility] Address [address] [place] [address] Care Team Providers Care Geophysical Laboratory Chief Name Role Phone Davide Connelly P.A.-C. Primary Care Provider Encounter Details Date Type Department Care Team (Late st Contact Info) Description 04/03/2005 Historical Ophthalmology RST OPH Farzad Blackburn M.D. Social History Tobacco Use Types Packs/Day Years Used Date Smoking Tobacco: Never Assessed Sex and Gender Information Value Date Recorded Sex Assigned at Female 03/31/2018 8:18 PM WELDER OPERATOR Gender Identity Female 03/31/2018 8:18 PM WELDER OPERATOR Sexual Orientation Straight 03/31/2018 8: 18 PM WELDER OPERATOR documented as of this encounter Progress Notes * Farzad Blackburn M.D. - 04/03/2005 12:00 AM CST Eye General CHIEF COMPLAINT follow up on iridocorneal endothelial syndrome right eye HISTORY OF PRESENT ILLNESS This is a 69 year old female here for a follow up on iridocorneal endothelial syndrome right eye. She feels there has been no changes and is doing well. 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 [address] [address] documented as of this encounter Visit Diagnoses Not on filedocumented in this encounter Care Teams Geophysical Laboratory Chief Relationship Specialty Start Date End Date Davide Connelly P.A.-C. PCP - General Family Medicine 07/11/17 documented as of this encounter
--- OUTSIDE RECORDS SUMMARY | 2023-09-24 14:11 | XMS_ITS | Encounter Summary ---
Author Organization [facility] Address [address] [place] [address] Care Team Providers Care Binman Name Role Phone Davide Connelly P.A.-C. Primary Care Provider Encounter Details Date Type Department Care Team (Late st Contact Info) Description 10/11/2005 Historical Ophthalmology RST OPH Farzad Blackburn M.D. Social History Tobacco Use Types Packs/Day Years Used Date Smoking Tobacco: Never Assessed Sex and Gender Information Value Date Recorded Sex Assigned at Female 03/31/2018 8:18 PM RETAIL GREETING CARD MERCHANDISER Gender Identity Female 03/31/2018 8:18 PM RETAIL GREETING CARD MERCHANDISER Sexual Orientation Straight 03/31/2018 8: 18 PM RETAIL GREETING CARD MERCHANDISER documented as of this encounter Progress Notes * Farzad Blackburn M.D. - 10/11/2005 12:00 AM CDT Eye General CHIEF COMPLAINT 6 month return HISTORY OF PRESENT ILLNESS This is a 70 year old female here for a 6 month return. She has a history of iridocorneal endothelial syndrome, right eye. She does not think that she has had any vidsion changes since we last saw her on . Denies double vision. She gets flashes and floaters that are unchanged from previous visits. Patient denies ocular pain. She has no ocular complaints at this time. 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 If no help, or allergy, a second tube is the nextoption. return 1month with manual field #2 pseudophakia, right eye DIAGNOSIS #1 iridocorneal endothelial syndrome, right eye #2 pseudophakia, right eye CDM Reports - EYEGEN Id: [id number] Status: Fnl documented in this encounter Plan of Treatment Upcoming Encounters Date Type Department Care Team (Late st Contact Info) Description 10/18/2023 10:00 AM CDT Office Visit Department of Ophthalmology in [place], [place] [address] [place] [phone] Estevan Robledo M.D. [address] [place] [phone] documented as of this encounter Visit Diagnoses Not on filedocumented in this encounter Care Teams Binman Relationship Specialty Start Date End Date Davide Connelly P.A.-C. PCP - General Family Medicine 07/11/17 documented as of this encounter
--- OUTSIDE RECORDS SUMMARY | 2023-09-24 14:11 | XMS_ITS | Encounter Summary ---
Author Organization [facility] Address [address] [place] [address] Care Team Providers Care Solid Waste Collector Name Role Phone Davide Connelly P.A.-C. Primary Care Provider Encounter Details Date Type Department Care Team (Late st Contact Info) Description 07/20/2003 Historical Ophthalmology RST OPH Farzad Blackburn M.D. Social History Tobacco Use Types Packs/Day Years Used Date Smoking Tobacco: Never Assessed Sex and Gender Information Value Date Recorded Sex Assigned at Female 03/31/2018 8:18 PM SENIOR FINANCIAL REPORTING ACCOUNTANT Gender Identity Female 03/31/2018 8:18 PM SENIOR FINANCIAL REPORTING ACCOUNTANT Sexual Orientation Straight 03/31/2018 8: 18 PM SENIOR FINANCIAL REPORTING ACCOUNTANT documented as of this encounter Progress Notes * Farzad Blackburn M.D. - 07/20/2003 12:00 AM CDT Eye General CHIEF COMPLAINT 6 month follow up HISTORY OF PRESENT ILLNESS This is a 68 year old female here for a 6 month follow up on iridocorneal endothelial syndrome right eye. No changes noticed. 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 [address] [place] [address] documented as of this encounter Visit Diagnoses Not on filedocumented in this encounter Care Teams Solid Waste Collector Relationship Specialty Start Date End Date Davide Connelly P.A.-C. PCP - General Family Medicine 07/11/17 documented as of this encounter
--- OUTSIDE RECORDS SUMMARY | 2023-09-24 14:11 | XMS_ITS | Clinical Summary ---
Author Organization [facility] Address [place], [place] [address] Care Team Providers Care Car Pincher Name Role Phone Davide Connelly Primary Care Provider [phone] Allergies Active Allergy Reactions Criticality Noted Date Comments Brimonidine *Unknown 01/21/2019 Brinzolamide *Unknown 01/21/2019 Latanoprost *Unknown 01/21/2019 Timolol *Unknown 01/21/2019 Medications Medication Sig Dispensed Refills Start Date End Date Status acetaminophen SR (TYLENOL ARTHRITIS) 650 mg Extended-Release tablet Take 650 mg by mouth. 08/31/2010 Active aspirin chewable 81 mg chewable tablet Take 1 tablet by mouth. 03/27/2016 Active atenolol (TENORMIN) 25 mg tablet Take 1 tablet by mouth. 06/26/2016 Active carboxymethylcellulo se-glycern 1-0.9 % drpg Place 1 Drop into the eye(s). 12/25/2012 Active escitalopram oxalate (LEXAPRO) 10 mg tablet Take 1 tablet by mouth. 06/26/2016 Active mirtazapine (REMERON) 15 mg tablet Take 0.5 tablets by mouth. 06/26/2016 Active tobramycin-dexametha sone (TOBRADEX) 0.3%-0.1% opthalmic suspension Place 1 Drop into the eye(s). 06/26/2016 Active travoprost 0.004% (TRAVATAN Z) 0.004 % ophthalmic solution Place 1 Drop into the eye(s). 06/26/2016 Active glucosamine/chondr kothari A sod (GLUCOSAMINE-CHONDRO ITIN) 1,500-1,200 mg/30 mL liqd Take 30 mL by mouth once daily. Active calcium carbonate/vitamin D3 (CALCIUM+D ORAL) Take by mouth 3 times daily. Active lisinopril (PRINIVIL; ZESTRIL) 20 mg tabletIndications:hy pertension Take 20 mg by mouth once daily. Indications: high blood pressure Active traMADol (ULTRAM) 50 mg tabletIndications:Ca rpal tunnel syndrome, left Take 1 to 2 tablets by mouth every 6 hours if needed for Pain. 15 tablet 01/28/2019 Active ketorolac 0.5 % ophthalmic (ACULAR) solution Place 1 Drop into the eye(s). 02/08/2020 Active LORazepam (ATIVAN) 0.5 mg tab Take 0.5 mg by mouth 3 times daily if needed. 01/11/2020 Active albuterol HFA (PRO-AIR; VENTOLIN; PROVENTIL) 90 mcg/actuation inhalerIndications:C ough Inhale 2 Puffs by mouth 4 times daily if needed. 1 Each 1 07/26/2020 Active codeine-guaiFENesin (ROBITUSSIN AC) 10-100 mg/5 mL liquidIndications:Co ugh Take 10 mL by mouth every 4 hours if needed for Cough. 240 mL 07/26/2020 Active Active Problems Problem Noted Date Diagnosed Date Cataract, nuclear sclerotic senile, left 019 Carpal tunnel syndrome, left 01/26/2019 Social History Tobacco Use Types Packs/Day Years Used Date Smoking Tobacco: Every Day Cigarettes 0.5 15 Smokeless Tobacco: Never Tobacco Cessation:Counseling Given: Yes Alcohol Use Standard Drinks/Week Comments Yes 1 (1 standard drink = 0.6 oz pur e alcohol) Sex and Gender Information Value Date Recorded Sex Assigned at Not on file Gender Identity Not on file Sexual Orientation Not on file Obstetrics History Last Filed Vital Signs Vital Sign Reading Time Taken Comments Blood Pressure 188/96 07/26/2020 7:00 PM CDT Pulse 59 07/26/2020 7:00 PM CDT Temperature 36.8 ??C (98.2 ??F) 07/26/2020 5:29 PM CD T Respiratory Rate 20 07/26/2020 5:29 PM CDT Oxygen Saturation 98% 07/26/2020 7:00 PM CDT Inhaled Oxygen Concentration - - Weight 49.1 kg (108 lb 4.8 oz) 07/26/2020 5:29 P M CDT Height 167.6 cm (5' 6) 07/26/2020 5:29 PM CDT Body Mass Index 17.48 07/26/2020 5:29 PM CDT Plan of Treatment Health Maintenance Due Date Last Done Comments Tdap 02/01/1946 Depression screening for age 12+ 1948 BMI (ht and wt on same day) for age 18+ 02/01/1954 Tetanus booster 1956 Zoster (shingles) series for age 50+ (1 of 2) 02/01/1986 DEXA/DXA scan for age 65+ 02/01/2001 Pneumococcal series for age 65+ (1 of 1 - PCV) 02/01/2001 COVID-19 vaccine series ( season) 2022 04/14/2020, 03/24/2020 Influenza for age 65+ 10/27/2023 Medical Devices Implanted Type Area Seat Pack Inspector Device Identifier Shelf Expiration Date Model / Serial / Lot [id number] - [id number] Implanted:Qty: 1 on 02/05/2019 by Cabrera Rahman Jr., MD at [facility] Left: [employer] 10/25/2021 [id number] / [id number] / Advance Directives Documents on File Type Date Recorded Patient Memory Care Program Director Expl anation Healthcare Directive 07/19/2011 12:00 AM A DVANCE DIRECTIVE * Full Code (Latest Code Status on File) Date Activated Date Inactivated Comments 02/05/2019 7:03 AM 02/06/2019 2:33 AM Question Answer Comments Code Status Discussion: Not Discussed * Full Code Date Activated Date Inactivated Comments 01/28/2019 8:11 AM 01/28/2019 12:32 PM Care Teams Car Pincher Relationship Specialty Start Date End Date Davide Connelly PA PCP - General 04/21/18
--- OUTSIDE RECORDS SUMMARY | 2023-09-24 14:11 | XMS_ITS | Encounter Summary ---
Author Organization [facility] Address [address] [place] [address] Care Team Providers Care Manager Of Allied Health Services Name Role Phone Davide Connelly P.A.-C. Primary Care Provider Encounter Details Date Type Department Care Team (Late st Contact Info) Description 04/23/2006 Historical Ophthalmology RST OPH Farzad Blackburn M.D. Social History Tobacco Use Types Packs/Day Years Used Date Smoking Tobacco: Never Assessed Sex and Gender Information Value Date Recorded Sex Assigned at Female 03/31/2018 8:18 PM FILM PAINTER Gender Identity Female 03/31/2018 8:18 PM FILM PAINTER Sexual Orientation Straight 03/31/2018 8: 18 PM FILM PAINTER documented as of this encounter Progress Notes * Farzad Blackburn M.D. - 04/23/2006 12:45 PM CST Eye General CHIEF COMPLAINT iridocorneal endothelial syndrome, right eye HISTORY OF PRESENT ILLNESS 71 year old female, follow up today for iridocorneal endothelial syndrome, right eye. No eye complaints. No vision changes. 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 we both agree to sit tight return 6 months #2 pseudophakia, right eye DIAGNOSIS #1 iridocorneal endothelial syndrome, right eye #2 pseudophakia, right eye CDM Reports - EYEGEN Id: [id number] Status: Fnl documented in this encounter Plan of Treatment Upcoming Encounters Date Type Department Care Team (Late st Contact Info) Description 10/18/2023 10:00 AM CDT Office Visit Department of Ophthalmology in [place], [place] [address] [phone] Estevan Robledo M.D. [address], [place] [phone] documented as of this encounter Visit Diagnoses Not on filedocumented in this encounter Care Teams Manager Of Allied Health Services Relationship Specialty Start Date End Date Davide Connelly P.A.-C. PCP - General Family Medicine 07/11/17 documented as of this encounter
--- OUTSIDE RECORDS SUMMARY | 2023-09-24 14:11 | XMS_ITS | Encounter Summary ---
Author Organization [facility] Address [address] [place] [address] Care Team Providers Care Pharmacology Associate Name Role Phone Davide Connelly P.A.-C. Primary Care Provider Encounter Details Date Type Department Care Team (Late st Contact Info) Description 09/26/2004 Historical Ophthalmology RST OPH Farzad Blackburn M.D. Social History Tobacco Use Types Packs/Day Years Used Date Smoking Tobacco: Never Assessed Sex and Gender Information Value Date Recorded Sex Assigned at Female 03/31/2018 8:18 PM BIOTECHNOLOGIST Gender Identity Female 03/31/2018 8:18 PM BIOTECHNOLOGIST Sexual Orientation Straight 03/31/2018 8: 18 PM BIOTECHNOLOGIST documented as of this encounter Progress Notes * Farzad Blackbunr M.D. - 09/26/2004 12:00 AM CDT Eye General CHIEF COMPLAINT follow up on [...] right eye CDM Reports - EYEGEN Id: [id number] Status: Fnl documented in this encounter Plan of Treatment Upcoming Encounters Date Type Department Care Team (Late st Contact Info) Description 10/18/2023 10:00 AM CDT Office Visit Department of Ophthalmology in [place], [place] [address] [phone] Estevan Robledo M.D. [address] [place] [phone] documented as of this encounter Visit Diagnoses Not on filedocumented in this encounter Care Teams Pharmacology Associate Relationship Specialty Start Date End Date Davide Connelly P.A.-C. PCP - General Family Medicine 07/11/17 documented as of this encounter
--- OUTSIDE RECORDS SUMMARY | 2023-09-24 14:11 | XMS_ITS | Encounter Summary ---
Author Organization [facility] Address [address] [place] [address] Care Team Providers Care Drywall Mechanic Name Role Phone Davide Connelly P.A.-C. Primary Care Provider Encounter Details Date Type Department Care Team (Late st Contact Info) Description 11/20/2005 Historical Ophthalmology RST OPH Farzad Blackburn M.D. Social History Tobacco Use Types Packs/Day Years Used Date Smoking Tobacco: Never Assessed Sex and Gender Information Value Date Recorded Sex Assigned at Female 03/31/2018 8:18 PM BLEACH MACHINE OPERATOR Gender Identity Female 03/31/2018 8:18 PM BLEACH MACHINE OPERATOR Sexual Orientation Straight 03/31/2018 8: 18 PM BLEACH MACHINE OPERATOR documented as of this encounter Progress Notes * Farzad Blackburn M.D. - 11/20/2005 12:00 AM CDT Eye General CHIEF COMPLAINT Patient states recheck HISTORY OF PRESENT ILLNESS having lid itiching and allergy since starting azopt IMPRESSION / REPORT / PLAN #1 iridocorneal endothelial syndrome, right eye goal 14 CT 567,179 field 2006: R dble arcs = 1996; L normal RUPERTO 2000 right double arcs = 1994; left normal allergy to timolol, trusopt; alphagan; and now Azopt; good response to ocupress; will need a tube (we both think the eye worth saving) da in law dying of liver cancer; pt will call us for surgery: B tube #2 right eye #2 pseudophakia, right eye DIAGNOSIS #1 iridocorneal endothelial syndrome, right eye #2 pseudophakia, right eye CDM Reports - EYEGEN Id: [id number] Status: Fnl documented in this encounter Plan of Treatment Upcoming Encounters Date Type Department Care Team (Late st Contact Info) Description 10/18/2023 10:00 AM CDT Office Visit Department of Ophthalmology in [place], [place] [address], [place] [address] Estevan Robledo M.D. [address], [place] [phone] documented as of this encounter Visit Diagnoses Not on filedocumented in this encounter Care Teams Drywall Mechanic Relationship Specialty Start Date End Date Davide Connelly P.A.-C. PCP - General Family Medicine 07/11/17 documented as of this encounter
--- OUTSIDE RECORDS SUMMARY | 2023-09-24 14:11 | XMS_ITS | Encounter Summary ---
Author Organization [facility] Address [address] [place] [id number] Care Team Providers Care Yarn Examiner Name Role Phone Davide Connelly P.A.-C. Primary Care Provider Encounter Details Date Type Department Care Team (Late st Contact Info) Description 10/21/2006 Historical Ophthalmology [facility] O[facility] Aries Bacon M.D., M.S. [address] [place] [phone] Social History Tobacco Use Types Packs/Day Years Used Date Smoking Tobacco: Never Assessed Sex and Gender Information Value Date Recorded Sex Assigned at Female 03/31/2018 8:18 PM BOOKBINDER APPRENTICE Gender Identity Female 03/31/2018 8:18 PM BOOKBINDER APPRENTICE Sexual Orientation Straight 03/31/2018 8: 18 PM BOOKBINDER APPRENTICE documented as of this encounter Progress Notes * Aries Bacon M.D. - 10/21/2006 2:38 PM CDT Eye General CHIEF COMPLAINT 6 month follow up iridocorneal endothelial syndrome, right eye HISTORY OF PRESENT ILLNESS This is a 71 year old female here for a 6 month return visit. Patient states that she is unable to see very well. Vision is still a little blurry. Patient denies ocular pain. Denies flashes of light or floaters. Patient is still having double vision. 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 CT 567,559 field 2006: R dble arcs = 1996; L normal RUPERTO 2000 right double arcs = 1994; left normal allergy to timolol, trusopt; alphagan; and Azopt; good response to ocupress; IOP near goal in righteye. we both agree to sit tight IOP acceptable Continue current medications return 6 months with RUPERTO #2 pseudophakia, right eye DIAGNOSIS #1 Iridocorneal endothelial syndrome, right eye #2 pseudophakia, right eye CDM Reports - EYEGEN Id: [id number] Status: Fnl documented in this encounter Plan of Treatment Upcoming Encounters Date Type Department Care Team (Late st Contact Info) Description 10/18/2023 10:00 AM CDT Office Visit Department of Ophthalmology in [place], [place] [address] [phone] Estevan Robledo M.D. [address] [phone] documented as of this encounter Visit Diagnoses Not on filedocumented in this encounter Care Teams Yarn Examiner Relationship Specialty Start Date End Date Davide Connelly P.A.-C. PCP - General Family Medicine 07/11/17 documented as of this encounter
--- OUTSIDE RECORDS SUMMARY | 2023-09-24 14:11 | XMS_ITS | Encounter Summary ---
Author Organization [facility] Address [address] [place] [address] Care Team Providers Care Saw Grinder Name Role Phone Davide Connelly P.A.-C. Primary Care Provider Encounter Details Date Type Department Care Team (Late st Contact Info) Description 07/07/2007 Historical Ophthalmology RST OPH Aries Bacon M.D., M.S. [address] [place] [phone] Social History Tobacco Use Types Packs/Day Years Used Date Smoking Tobacco: Never Assessed Sex and Gender Information Value Date Recorded Sex Assigned at Female 03/31/2018 8:18 PM ELECTRICAL LINESWORKER Gender Identity Female 03/31/2018 8:18 PM ELECTRICAL LINESWORKER Sexual Orientation Straight 03/31/2018 8: 18 PM ELECTRICAL LINESWORKER documented as of this encounter Progress Notes * Aries Bacon M.D. - 07/07/2007 2:33 PM CDT Eye General CHIEF COMPLAINT 6 week follow up after starting Xalatan HISTORY OF PRESENT ILLNESS This is a 72 year old female here for a follow up visit Iridocorneal endothelial syndrome, right eye. Patient is wondering about Carteolol. Only been taking once daily, but prescription says 2x day. In the past has only taken once daily. No change in vision. Patient denies ocular pain. Denies flashes of light or floaters. 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 Continue current medications f/u 6 months with RUPERTO #2 pseudophakia, right eye DIAGNOSIS #1 Iridocorneal endothelial syndrome, right eye #2 pseudophakia, right eye CDM Reports - EYEGEN Id: [id number] Status: Fnl documented in this encounter Plan of Treatment Upcoming Encounters Date Type Department Care Team (Late st Contact Info) Description 10/18/2023 10:00 AM CDT Office Visit Department of Ophthalmology in [place], [place] [address] [phone] Estevan Robledo M.D. [address] [place] [phone] documented as of this encounter Visit Diagnoses Not on filedocumented in this encounter Care Teams Saw Grinder Relationship Specialty Start Date End Date Davide Connelly P.A.-C. PCP - General Family Medicine 07/11/17 documented as of this encounter
== END 2023-09-24 14:02 | disposition home or self-care (01) ==
PROVIDERS: PCP Physician Assistant; Visit Provider Nurse Practitioner Family
DX: L08.9 Local infection of the skin and subcutaneous tissue, unspecified (principal)
CPT/HCPCS: 85025; 85651; 86140

== ENCOUNTER 2023-10-16 13:49 | Outpatient (CLI) | payer MEDICARE, BC, SELFPAY ==
--- OUTSIDE RECORDS SUMMARY | 2023-10-16 13:53 | XMS_ITS | Encounter Summary ---
Author Organization [facility] Address [address] [place] [address] Care Team Providers Care Guard Museum Name Role Phone Davide Connelly P.A.-C. Primary Care Provider Reason for Referral * Outpatient (Routine) - Closed Specialty Diagnoses / Procedures Referred By Juvenal camejo Referred To Contact Ophthalmology Estevan Robledo M.D. [address] [place] [phone] [facility] Referral ID Status Reason Start Date Expiration Date Visits Re quested Visits Authorized [id number] Closed 08/09/2023 02/07/2025 1 1 Reason for Visit * Reason Comments Dry Eye * Outpatient (Routine) - Closed Specialty Diagnoses / Procedures Referred By Juvenal camejo Referred To Contact Ophthalmology Estevan Robledo M.D. [address] [place] [phone] [facility] Referral ID Status Reason Start Date Expiration Date Visits Re quested Visits Authorized [id number] Closed 07/01/2023 12/30/2024 1 1 Encounter Details Date Type Department Care Team (Latest Contact Info) Description 08/09/2023 10:30 AM CDT Office Visit Department of Ophthalmology in [place], [place] [address] [phone] Estevan Robledo M.D. [address] [phone] Dry Eye Syndrome Right (Primary Dx); Primary [...] How often do you attend chur or moravian services? More than 4 times per year 01/10/2022 Do you belong to any clubs o r organizations such as rastafari groups, unions, fraternal or athletic groups, or [...] Answer Date Recorded PHQ-2 Score 0 01/11/2022 [facility] - Occupational [...] place to sleep or slept in a fpc (including now)? No 01/10/2022 Depression Answer Date [...] Sex Assigned at Female 03/31/2018 8:18 PM COKE OVEN PATCHER Gender Identity Female 03/31/2018 8:18 PM COKE OVEN PATCHER Sexual Orientation Straight 03/31/2018 8: 18 PM COKE OVEN PATCHER documented as of this encounter Progress Notes [...] CDT Office Visit Department of Ophthalmology in [place], [place] 2199 [place] [phone] Estevan Robledo M.D. [address] [place] [phone] Scheduled Referrals Name Type Priority Associated Diagnoses [...] documented as of this encounter Care Teams Guard Museum Relationship Specialty Start Date End Date Davide Connelly P.A.-C. PCP - General Family Medicine 07/11/17 documented as of this encounter
--- OUTSIDE RECORDS SUMMARY | 2023-10-16 13:53 | XMS_ITS | Encounter Summary ---
Author Organization [facility] Address [address] [place] [address] Care Team Providers Care Seafood Harvester Name Role Phone Davide Connelly P.A.-C. Primary Care Provider Encounter Details Date Type Department Care Team (Late st Contact Info) Description 11/21/2009 Historical Ophthalmology [facility] O[facility] Lonnie Colunga M.D. Social History Tobacco Use Types Packs/Day Years Used Date Smoking Tobacco: Never Assessed Sex and Gender Information Value Date Recorded Sex Assigned at Female 03/31/2018 8:18 PM ORACLE DATABASE ADMINISTRATOR Gender Identity Female 03/31/2018 8:18 PM ORACLE DATABASE ADMINISTRATOR Sexual Orientation Straight 03/31/2018 8: 18 PM ORACLE DATABASE ADMINISTRATOR documented as of this encounter Progress Notes [...] right eye CDM Reports - EYEGEN Id: [id number] Status: Fnl documented in this encounter Plan of Treatment Upcoming Encounters Date Type Department Care Team (Late st Contact Info) Description 10/18/2023 10:00 AM CDT Office Visit Department of Ophthalmology in [place], [place] [address] [place] [phone] Estevan Robledo M.D. [address] [phone] documented as of this encounter Visit Diagnoses Not on filedocumented in this encounter Care Teams Seafood Harvester Relationship Specialty Start Date End Date Davide Connelly P.A.-C. PCP - General Family Medicine 07/11/17 documented as of this encounter
--- OUTSIDE RECORDS SUMMARY | 2023-10-16 13:53 | XMS_ITS | Encounter Summary ---
Author Organization [facility] Address [address] [place] [address] Care Team Providers Care Hospitalist Physician Name Role Phone Davide Connelly P.A.-C. Primary Care Provider Encounter Details Date Type Department Care Team (Late st Contact Info) Description 10/19/2009 Historical Ophthalmology RST OPH Lonnie Colunga M.D. Social History Tobacco Use Types Packs/Day Years Used Date Smoking Tobacco: Never Assessed Sex and Gender Information Value Date Recorded Sex Assigned at Female 03/31/2018 8:18 PM PROPERTY ASSESSMENT MONITOR Gender Identity Female 03/31/2018 8:18 PM PROPERTY ASSESSMENT MONITOR Sexual Orientation Straight 03/31/2018 8: 18 PM PROPERTY ASSESSMENT MONITOR documented as of this encounter Progress Notes [...] right eye CDM Reports - EYEGEN Id: [id number] Status: Fnl documented in this encounter Plan of Treatment Upcoming Encounters Date Type Department Care Team (Late st Contact Info) Description 10/18/2023 10:00 AM CDT Office Visit Department of Ophthalmology in [place], [place] [address] [phone] Estevan Robledo M.D. [address] [phone] documented as of this encounter Visit Diagnoses Not on filedocumented in this encounter Care Teams Hospitalist Physician Relationship Specialty Start Date End Date Davide Connelly P.A.-C. PCP - General Family Medicine 07/11/17 documented as of this encounter
--- OUTSIDE RECORDS SUMMARY | 2023-10-16 13:53 | XMS_ITS | Encounter Summary ---
Author Organization [facility] Address [address] [place] [address] Care Team Providers Care Trimmer Machine Name Role Phone Davide Connelly P.A.-C. Primary Care Provider Encounter Details Date Type Department Care Team (Late st Contact Info) Description 12/12/2009 Historical Ophthalmology RST OPH Lonnie Colunga M.D. Social History Tobacco Use Types Packs/Day Years Used Date Smoking Tobacco: Never Assessed Sex and Gender Information Value Date Recorded Sex Assigned at Female 03/31/2018 8:18 PM CATERING BARISTA Gender Identity Female 03/31/2018 8:18 PM CATERING BARISTA Sexual Orientation Straight 03/31/2018 8: 18 PM CATERING BARISTA documented as of this encounter Progress Notes [...] right eye CDM Reports - EYEGEN Id: [id number] Status: Fnl documented in this encounter Plan of Treatment Upcoming Encounters Date Type Department Care Team (Late st Contact Info) Description 10/18/2023 10:00 AM CDT Office Visit Department of Ophthalmology in [place], [place] [address] [phone] Estevan Robledo M.D. [address] [place] [phone] documented as of this encounter Visit Diagnoses Not on filedocumented in this encounter Care Teams Trimmer Machine Relationship Specialty Start Date End Date Davide Connelly P.A.-C. PCP - General Family Medicine 07/11/17 documented as of this encounter
--- OUTSIDE RECORDS SUMMARY | 2023-10-16 13:53 | XMS_ITS | Encounter Summary ---
Author Organization [facility] Address [address] [place] [address] Care Team Providers Care Dispatcher Chief Oil Name Role Phone Davide Connelly P.A.-C. Primary Care Provider Encounter Details Date Type Department Care Team (Late st Contact Info) Description 10/25/2009 Historical Ophthalmology RST OPH Lonnie Colunga M.D. Social History Tobacco Use Types Packs/Day Years Used Date Smoking Tobacco: Never Assessed Sex and Gender Information Value Date Recorded Sex Assigned at Female 03/31/2018 8:18 PM CONTENT MANAGER Gender Identity Female 03/31/2018 8:18 PM CONTENT MANAGER Sexual Orientation Straight 03/31/2018 8: 18 PM CONTENT MANAGER documented as of this encounter Progress Notes [...] right eye CDM Reports - EYEGEN Id: [id number] Status: Fnl documented in this encounter Plan of Treatment Upcoming Encounters Date Type Department Care Team (Late st Contact Info) Description 10/18/2023 10:00 AM CDT Office Visit Department of Ophthalmology in [place], [place] [address] [phone] Estevan Robledo M.D. [address] [phone] documented as of this encounter Visit Diagnoses Not on filedocumented in this encounter Care Teams Dispatcher Chief Oil Relationship Specialty Start Date End Date Davide Connelly P.A.-C. PCP - General Family Medicine 07/11/17 documented as of this encounter
--- OUTSIDE RECORDS SUMMARY | 2023-10-16 13:53 | XMS_ITS | Encounter Summary ---
Author Organization [facility] Address [address] [place] [address] Care Team Providers Care Site Technician Name Role Phone Davide Connelly P.A.-C. Primary Care Provider Encounter Details Date Type Department Care Team (Late Contact Info) Description 04/19/2010 Historical Ophthalmology RST OPH Nicole Berman, C.O.A. Social History Tobacco Use Types Packs/Day Years Used Date Smoking Tobacco: Never Assessed Sex and Gender Information Value Date Recorded Sex Assigned at Female 03/31/2018 8:18 PM AUTOMATIC MAINTAINER Gender Identity Female 03/31/2018 8:18 PM AUTOMATIC MAINTAINER Sexual Orientation Straight 03/31/2018 8: 18 PM AUTOMATIC MAINTAINER documented as of this encounter Progress Notes * Nicole Berman, C.O.A. - 04/19/2010 9:13 AM CST Eye Subsequent Visit HISTORY OF PRESENT ILLNESS Preop checklist: preop instructions given, glasses read, informed consent documented in Informed Consent (IC) section. CDM Reports - EYESV Id: [id number] Status: Fnl documented in this encounter Plan of Treatment Upcoming Encounters Date Type Department Care Team (Late Contact Info) Description 10/18/2023 10:00 AM CDT Office Visit Department of Ophthalmology in [place], [place] [address] [place] [phone] Estevan Robledo M.D. [address] [place] [phone] documented as of this encounter Visit Diagnoses Not on filedocumented in this encounter Care Teams Site Technician Relationship Specialty Start Date End Date Davide Connelly P.A.-C. PCP - General Family Medicine 07/11/17 documented as of this encounter
--- OUTSIDE RECORDS SUMMARY | 2023-10-16 13:53 | XMS_ITS | Clinical Summary ---
Author Organization [facility] Address [address] [place] [address] Care Team Providers Care Cognos Tm1 Developer Name Role Phone Davide Connelly P.A.-C. Primary Care Provider Source Comments Patient records contain information from all sites at [facility]. For routine questions regarding patient records, call [phone] during business hours, M-F 8:00 AM - 5:00 PM Central Time. Record requests for emergency care only can be directed to [phone] at any time.[facility] Allergies Active Allergy Reactions Criticality Noted Date [...] 2 (two) times a day. 08/31/2010 Active GLUCOSAMINE/CHONDRO ITIN SULF A (GLUCOSAMINE-CHONDR OITIN ORAL) Take by mouth 2 (two) times a day. 06/14/2009 Active carboxymethylcellul ose-glycerin (REFRESH OPTIVE) 1-0.9 % ophthalmic solution Administer [...] daily. 90 capsule 3 01/24/2023 Active lisinopriL (PRINIVIL,ZESTRIL) 30 mg tablet Take 1 tablet (30 [...] a day. 5 mL 2 03/12/2023 Active neomycin-polymyxin B-dexameth (MAXITROL) 3.5 mg/g-10,000 unit/g-0.1 % ophthalmic ointment Apply to right upper lid twice daily. 3.5 g 1 03/19/2023 Active Additional Information Patient not taking.Reported on 05/27/2023 tobramycin (TOBREX) 0.3 % ophthalmic solution Administer 1 drop into the right eye daily. 5 mL 11 06/12/2023 Active neomycin-polymyxin B-dexameth (MAXITROL) 3.5 mg/g-10,000 unit/g-0.1 % ophthalmic ointment Apply to right lower lid daily at bedtime 3.5 g 1 08/09/2023 Active Additional Information Patient not taking.Reported on 09/06/2023 Gemtesa 75 mg tabletIndications:U rinary Urge Incontinence take one tablet by mouth every day 90 tablet 3 09/04/2023 Active Active Problems Problem Noted Date Diagnosed [...] Visit Department of Ophthalmology in [place], [place] [address] [phone] Estevan Robledo M.D. Primary Open-Angle Glaucoma Severe Stage Bilateral (Primary Dx); Edema Corneal Secondary Right 08/30/2023 Refill Department of Obstetrics and Gynecology in [place], [place] [address] [place] [phone] Kaila Blackburn APRN, C.N.P. Med Refill 08/09/2023 10:30 AM CDT Office Visit Department of Ophthalmology in [place], [place] [address] [phone] Estevan Robledo M.D. Dry Eye Syndrome Right (Primary Dx); Primary Open-Angle Glaucoma Severe Stage Bilateral; Edema Corneal Secondary Right; Intraocular Lens Implant Status Post from Last 3 Months Immunizations Name Administration Dates Next Due DT, Pediatric 05/30/2007 HZV (ZOSTAVAX) 03/04/2013 Influenza high dose QV(65 ye ars or older) (PF) 01/24/2023,01/11/2022,12/19/2020 Influenza, Unspecified 12/10/2019,2018,12/30/2017,2016,12/29/2015,12/28/2014,12/29/2013,1 ,12/31/2011,12/21/2010, 010,11/10/2008,12/24/2007,12/16/2006, PCV13 06/21/2014 PPSV23 08/09/2001,04/01/2000 RZV (SHINGRIX) 01/11/2021(Deferred: Patient decision),01/28/2020 SARS-COV-2 (COVID-19) - MODE RNA (12 YEARS AND OLDER) [id number] 01/24/2023 SARS-COV-2 (COVID-19) - PFIZ ER (Discontinued)(12 [...] How often do you attend chur or uatsdin services? More than 4 times per year 01/10/2022 Do you belong to any clubs o r organizations such as latter-day groups, unions, fraternal or athletic groups, or [...] Answer Date Recorded PHQ-2 Score 0 01/11/2022 [facility] - [facility]ational Stress Questionnaire Answer Date Recorded [...] place to sleep or slept in a snf (including now)? No 01/10/2022 Depression Answer Date [...] Sex Assigned at Female 03/31/2018 8:18 PM DRY KILN OPERATOR Gender Identity Female 03/31/2018 8:18 PM DRY KILN OPERATOR Sexual Orientation Straight 03/31/2018 8: 18 PM DRY KILN OPERATOR Last Filed Vital Signs Vital Sign Reading Time Taken Comments Blood Pressure 116/64 01/24/2023 11:06 AM DRY KILN OPERATOR Pulse 56 01/24/2023 10:51 AM DRY KILN OPERATOR Temperature 36 ??C (96.8 ??F) 01/24/2023 10:46 AM DRY KILN OPERATOR Respiratory Rate 20 01/24/2023 10:46 AM DRY KILN OPERATOR Oxygen Saturation 100% 07/29/2020 9:54 AM CDT Inhaled Oxygen Concentration - - Weight 53.7 kg (118 lb 4.4 oz) 01/24/2023 10:46 AM DRY KILN OPERATOR Height 163 cm (5' 4.17) 01/24/2023 10:46 AM DRY KILN OPERATOR Body Mass Index 20.19 01/24/2023 10:46 AM DRY KILN OPERATOR Plan of Treatment Upcoming Encounters Date Type Department Care Team (Late st Contact Info) Description 10/18/2023 10:00 AM CDT Office Visit Department of Ophthalmology in [place], [place] [address] [place] [phone] Estevan Robledo M.D. [address], [place] [phone] Health Maintenance Due Date Last [...] 04/2019, 03/04/2013 Medical Devices Implanted Type Area Food Checker Device Identifier Shelf Expiration Date Model / Serial / Lot Sclera Tissue Shell 1 2 - Flores Implanted:Qty: 1 on 07/18/1999 Ocular (Eye) Implant DNAtriX Medical Description:Device Manufactu [facility] [employer] [facility]. Device Status Text - OCULARIMP-. Procedures Procedure Name Priority Date/Time Associated Diagnosis Comments COMPREHENSIVE METABOLIC PANEL, S/P Routine 01/23/2023 9:15 AM DRY KILN OPERATOR Hypertension Essential Primary from Last 3 Months or Most Recently Relevant to Health Maintenance Results * Comprehensive Metabolic Panel (01/23/2023 9:15 AM DRY KILN OPERATOR) Potassium, P 4.7 3.6 - 5.2 mmol/L 01/23/2023 11:56 AM DRY KILN OPERATOR OWAT Sodium, P 136 135 - 145 mmol/L 01/23/2023 11:56 AM DRY KILN OPERATOR OWAT Chloride, P 100 98 - 107 mmol/L 01/23/2023 11:56 AM DRY KILN OPERATOR OWAT Bicarbonate, P 23 22 - 29 mmol/L 01/23/2023 11:56 AM DRY KILN OPERATOR OWAT Anion Gap, P 13 7 - 15 01/23/2023 11:56 AM DRY KILN OPERATOR OWAT BUN (Blood Urea Nitrogen), P 20 6 - 21 mg/dL 01/23/2023 11:56 AM DRY KILN OPERATOR OWAT Creatinine 0.84 0.59 - 1.04 mg/dL 01/23/2023 11:56 AM DRY KILN OPERATOR OWAT Estimated GFR (eGFR) 68 >=60 mL/min/BS A 01/23/2023 11:56 AM DRY KILN OPERATOR OWAT Comment: Estimated GFR calculated using the 2020 CKD_EPI creatinine equation. Calcium, Total, P 9.6 8.8 - 10.2 mg/dL 01/23/2023 11:56 AM DRY KILN OPERATOR OWAT Glucose, P 99 70 - 140 mg/dL 01/23/2023 11:56 AM DRY KILN OPERATOR OWAT Protein, Total, P 7.0 6.3 - 7.9 g/dL 01/23/2023 11:56 AM DRY KILN OPERATOR OWAT Albumin, P 4.4 3.5 - 5.0 g/dL 01/23/2023 11:56 AM DRY KILN OPERATOR OWAT Aspartate Aminotransferase (AST), P 20 8 - 43 U/L 01/23/2023 11:56 AM DRY KILN OPERATOR OWAT Alkaline Phosphatase, P 85 35 - 104 U/L 01/23/2023 11:56 AM DRY KILN OPERATOR OWAT Alanine Aminotransferase (ALT), P 11 7 - 45 U/L 01/23/2023 11:56 AM DRY KILN OPERATOR OWAT Bilirubin, Total, P 0.3 0.0 - 1.2 mg/dL 01/23/2023 11:56 AM DRY KILN OPERATOR OWAT Blood (Blood, Venous) 01/23/2023 9:15 AM DRY KILN OPERATOR 01/23/2023 11:17 AM DRY KILN OPERATOR Davide Connelly P.A.-C. LAB BLOOD [facility] [address] [place] [address], [facility] OWAT [facility] [place] [address] [place] [id number] from Last 3 Months or Most Recently Relevant to Health Maintenance Advance Directives For more information, please contact: [phone] Documents on File Type Date Recorded Patient Crime Scene Investigator Expl anation Advance Directives 03/16/2011 12:00 AM Leg acy document. See document viewer. Care Teams Cognos Tm1 Developer Relationship Specialty Start Date End Date Davide Connelly P.A.-C. PCP - General Family Medicine 07/11/17
--- OUTSIDE RECORDS SUMMARY | 2023-10-16 13:53 | XMS_ITS | Encounter Summary ---
Author Organization [facility] Address [address] [place] [address] Care Team Providers Care Ladle Car Operator Name Role Phone Davide Connelly P.A.-C. Primary Care Provider Encounter Details Date Type Department Care Team (Late st Contact Info) Description 10/19/2016 Historical Ophthalmology [facility] Estevan Robledo M.D. [address] [place] [phone] Social History Tobacco Use Types Packs/Day Years Used Date Smoking Tobacco: Former Sex and Gender Information Value Date Recorded Sex Assigned at Female 03/31/2018 8:18 PM CITY COLLECTOR Gender Identity Female 03/31/2018 8:18 PM CITY COLLECTOR Sexual Orientation Straight 03/31/2018 8: 18 PM CITY COLLECTOR documented as of this encounter Progress Notes [...] patient currently. CDM Reports - EYEGEN Id: [id number] Status: Fnl documented in this encounter Plan of Treatment Upcoming Encounters Date Type Department Care Team (Late st Contact Info) Description 10/18/2023 10:00 AM CDT Office Visit Department of Ophthalmology in [place], [place] [address] [place] [phone] Estevan Robledo M.D. [address], [place] [phone] documented as of this encounter Visit Diagnoses Not on filedocumented in this encounter Additional Health Concerns Assessment Noted Time PHQ-9 Depression Total Score: 2 06/27/19 17 9:59 AM CDT documented as of this encounter Care Teams Ladle Car Operator Relationship Specialty Start Date End Date Davide Connelly P.A.-C. PCP - General Family Medicine 07/11/17 documented as of this encounter
--- OUTSIDE RECORDS SUMMARY | 2023-10-16 13:53 | XMS_ITS | Encounter Summary ---
Author Organization [facility] Address [address] [place] [address] Care Team Providers Care Hand Tile Maker Name Role Phone Davide Connelly P.A.-C. Primary Care Provider Reason for Visit * Reason Comments Med Refill Encounter Details Date Type Department Care Team (Late st Contact Info) Description 08/30/2023 Refill Department of Obstetrics and Gynecology in [address] [phone] Kaila Blackburn, SENIOR JAVA PROGRAMMER ANALYST, C.N.P. [address], [place] [address] Med Refill Social History Tobacco [...] week 01/10/2022 How often do you attend [facility] or christian services? More than 4 times per year 01/10/2022 Do you belong to any clubs o r organizations such as sikh groups, unions, fraternal or athletic groups, or [...] place to sleep or slept in a mcc (including now)? No 01/10/2022 Depression Answer Date [...] Sex Assigned at Female 03/31/2018 8:18 PM SALESPERSON FURNITURE Gender Identity Female 03/31/2018 8:18 PM SALESPERSON FURNITURE Sexual Orientation Straight 03/31/2018 8: 18 PM SALESPERSON FURNITURE documented as of this encounter Plan of Treatment Upcoming Encounters Date Type Department Care Team (Late st Contact Info) Description 10/18/2023 10:00 AM CDT Office Visit Department of Ophthalmology in [place], [place] [address], [place] [address] Estevan Robledo M.D. [address] [place] [address] documented as of this encounter Visit Diagnoses Diagnosis Urinary Urge Incontinence documented in this encounter Additional Health Concerns Assessment Noted Time PHQ-9 Depression Total Score: 5 07/30/19 21 9:46 AM CDT documented as of this encounter Care Teams Hand Tile Maker Relationship Specialty Start Date End Date Davide Connelly P.A.-C. PCP - General Family Medicine 07/11/17 documented as of this encounter
--- OUTSIDE RECORDS SUMMARY | 2023-10-16 13:53 | XMS_ITS | Encounter Summary ---
Author Organization [facility] Address [address] [place] [address] Care Team Providers Care Safekeeping Clerk Name Role Phone Davide Connelly P.A.-C. Primary Care Provider Encounter Details Date Type Department Care Team (Late st Contact Info) Description 04/19/2010 Historical Ophthalmology [facility] O[facility] Lonnie Colunga M.D. Social History Tobacco Use Types Packs/Day Years Used Date Smoking Tobacco: Never Assessed Sex and Gender Information Value Date Recorded Sex Assigned at Female 03/31/2018 8:18 PM FOREIGN EXCHANGE TRADER Gender Identity Female 03/31/2018 8:18 PM FOREIGN EXCHANGE TRADER Sexual Orientation Straight 03/31/2018 8: 18 PM FOREIGN EXCHANGE TRADER documented as of this encounter Progress Notes [...] membrane dystrophy CDM Reports - EYEGEN Id: [id number] Status: Fnl documented in this encounter Plan of Treatment Upcoming Encounters Date Type Department Care Team (Late st Contact Info) Description 10/18/2023 10:00 AM CDT Office Visit Department of Ophthalmology in [place], [place] [address], [place] [address] Estevan Robledo M.D. [address] [place] [address] documented as of this encounter Visit Diagnoses Not on filedocumented in this encounter Care Teams Safekeeping Clerk Relationship Specialty Start Date End Date Davide Connelly P.A.-C. PCP - General Family Medicine 07/11/17 documented as of this encounter
--- OUTSIDE RECORDS SUMMARY | 2023-10-16 13:53 | XMS_ITS | Referral Summary ---
Author Organization [facility] Address [address] [place] [address] Care Team Providers Care Electrotype Finisher Name Role Phone Davide Connelly P.A.-C. Primary Care Provider Source Comments Patient records contain information from all sites at [facility]. For routine questions regarding patient records, call [phone] during business hours, M-F 8:00 AM - 5:00 PM Central Time. Record requests for emergency care only can be directed to [phone] at any time.[facility] Encounters Date Type Department Care Team Description 09/06/2023 10:00 AM CDT Office Visit Department of Ophthalmology in [address] [phone] Estevan Robledo M.D. Primary Open-Angle Glaucoma Severe Stage Bilateral (Primary Dx); Edema Corneal Secondary Right 08/30/2023 Refill Department of Obstetrics and Gynecology in [place] [address] [place] [address] Kaila Blackburn APRN, C.N.P. Med Refill 08/09/2023 10:30 AM CDT Office Visit Department of Ophthalmology in [address] [phone] Estevan Robledo M.D. Dry Eye Syndrome Right (Primary Dx); Primary Open-Angle Glaucoma Severe Stage Bilateral; Edema Corneal Secondary Right; Intraocular Lens Implant Status Post from Last 3 Months Allergies Active Allergy [...] - MODE RNA (12 YEARS AND OLDER) [id number] 01/24/2023 SARS-COV-2 (COVID-19) - PFIZ ER (Discontinued)(12 [...] often do you attend chur ch or congregation services? More than 4 times per year 01/10/2022 Do you belong to any clubs o r organizations such as judaism groups, unions, fraternal or athletic groups, or [...] Answer Date Recorded PHQ-2 Score 0 01/11/2022 [facility] [place] [facility] - Occupational Stress Questionnaire Answer Date [...] place to sleep or slept in a intermediate (including now)? No 01/10/2022 Depression Answer Date [...] Sex Assigned at Female 03/31/2018 8:18 PM CARE PROCESS MANAGER Gender Identity Female 03/31/2018 8:18 PM CARE PROCESS MANAGER Sexual Orientation Straight 03/31/2018 8: 18 PM CARE PROCESS MANAGER Last Filed Vital Signs Vital Sign Reading Time Taken Comments Blood Pressure 116/64 01/24/2023 11:06 AM CARE PROCESS MANAGER Pulse 56 01/24/2023 10:51 AM CARE PROCESS MANAGER Temperature 36 ??C (96.8 ??F) 01/24/2023 10:46 AM CARE PROCESS MANAGER Respiratory Rate 20 01/24/2023 10:46 AM CARE PROCESS MANAGER Oxygen Saturation 100% 07/29/2020 9:54 AM CDT Inhaled Oxygen Concentration - - Weight 53.7 kg (118 lb 4.4 oz) 01/24/2023 10:46 AM CARE PROCESS MANAGER Height 163 cm (5' 4.17) 01/24/2023 10:46 AM CARE PROCESS MANAGER Body Mass Index 20.19 01/24/2023 10:46 AM CARE PROCESS MANAGER Plan of Treatment Upcoming Encounters Date Type Department Care Team (Late st Contact Info) Description 10/18/2023 10:00 AM CDT Office Visit Department of Ophthalmology in [place], [place] [address] [address] Estevan Robledo M.D. [address] [place] [address] Medical Devices Implanted Type Area Electric Mule Operator Device Identifier Shelf Expiration Date Model / Serial / Lot Sclera Tissue Shell 1 2 - Flores Implanted:Qty: 1 on 07/18/1999 Ocular (Eye) Implant Physicians Formulaeler [employer] Medical Description:Device Manufactu rer - Physicians [employer]eler [employer]. Device Status Text - OCULARIMP-. Procedures Procedure Name Priority Date/Time Associated Diagnosis Comments COMPREHENSIVE METABOLIC PANEL, S/P Routine 01/23/2023 9:15 AM CARE PROCESS MANAGER Hypertension Essential Primary from Last 3 Months or Most Recently Relevant to Health Maintenance Results * Comprehensive Metabolic Panel (01/23/2023 9:15 AM CARE PROCESS MANAGER) Potassium, P 4.7 3.6 - 5.2 mmol/L 01/23/2023 11:56 AM CARE PROCESS MANAGER OWAT Sodium, P 136 135 - 145 mmol/L 01/23/2023 11:56 AM CARE PROCESS MANAGER OWAT Chloride, P 100 98 - 107 mmol/L 01/23/2023 11:56 AM CARE PROCESS MANAGER OWAT Bicarbonate, P 23 22 - 29 mmol/L 01/23/2023 11:56 AM CARE PROCESS MANAGER OWAT Anion Gap, P 13 7 - 15 01/23/2023 11:56 AM CARE PROCESS MANAGER OWAT BUN (Blood Urea Nitrogen), P 20 6 - 21 mg/dL 01/23/2023 11:56 AM CARE PROCESS MANAGER OWAT Creatinine 0.84 0.59 - 1.04 mg/dL 01/23/2023 11:56 AM CARE PROCESS MANAGER OWAT Estimated GFR (eGFR) 68 >=60 mL/min/BS A 01/23/2023 11:56 AM CARE PROCESS MANAGER OWAT Comment: Estimated GFR calculated using the 2020 CKD_EPI creatinine equation. Calcium, Total, P 9.6 8.8 - 10.2 mg/dL 01/23/2023 11:56 AM CARE PROCESS MANAGER OWAT Glucose, P 99 70 - 140 mg/dL 01/23/2023 11:56 AM CARE PROCESS MANAGER OWAT Protein, Total, P 7.0 6.3 - 7.9 g/dL 01/23/2023 11:56 AM CARE PROCESS MANAGER OWAT Albumin, P 4.4 3.5 - 5.0 g/dL 01/23/2023 11:56 AM CARE PROCESS MANAGER OWAT Aspartate Aminotransferase (AST), P 20 8 - 43 U/L 01/23/2023 11:56 AM CARE PROCESS MANAGER OWAT Alkaline Phosphatase, P 85 35 - 104 U/L 01/23/2023 11:56 AM CARE PROCESS MANAGER OWAT Alanine Aminotransferase (ALT), P 11 7 - 45 U/L 01/23/2023 11:56 AM CARE PROCESS MANAGER OWAT Bilirubin, Total, P 0.3 0.0 - 1.2 mg/dL 01/23/2023 11:56 AM CARE PROCESS MANAGER OWAT Blood (Blood, Venous) 01/23/2023 9:15 AM CARE PROCESS MANAGER 01/23/2023 11:17 AM CARE PROCESS MANAGER Davide Connelly P.A.-C. LAB BLOOD ADD- ON [facility] [address] [place] [address], [place] OWAT [facility] in [place] [address] [place] [address] from Last 3 Months or Most Recently Relevant to Health Maintenance Advance Directives For more information, please contact: [phone] Documents on File Type Date Recorded Patient Metal Expediter Expl anation Advance Directives 03/16/2011 12:00 AM Leg acy document. See document viewer. Care Teams Electrotype Finisher Relationship Specialty Start Date End Date Davide Connelyl P.A.-C. PCP - General Family Medicine 07/11/17
--- OUTSIDE RECORDS SUMMARY | 2023-10-16 13:53 | XMS_ITS | Encounter Summary ---
Author Organization [facility] Address [address] [place] [address] Care Team Providers Care Senior Center Director Name Role Phone Davide Connelly P.A.-C. Primary Care Provider Encounter Details Date Type Department Care Team (Late st Contact Info) Description 01/17/2010 Historical Ophthalmology [facility] Lonnie Colunga M.D. Social History Tobacco Use Types Packs/Day Years Used Date Smoking Tobacco: Never Assessed Sex and Gender Information Value Date Recorded Sex Assigned at Female 03/31/2018 8:18 PM GRAPPLE CREW LEADER Gender Identity Female 03/31/2018 8:18 PM GRAPPLE CREW LEADER Sexual Orientation Straight 03/31/2018 8: 18 PM GRAPPLE CREW LEADER documented as of this encounter Progress Notes [...] right eye CDM Reports - EYEGEN Id: [id number] Status: Fnl documented in this encounter Plan of Treatment Upcoming Encounters Date Type Department Care Team (Late st Contact Info) Description 10/18/2023 10:00 AM CDT Office Visit Department of Ophthalmology in [place], [place] [address] [address] Estevan Robledo M.D. [address] [place] [phone] documented as of this encounter Visit Diagnoses Not on filedocumented in this encounter Care Teams Senior Center Director Relationship Specialty Start Date End Date Davide Connelly P.A.-C. PCP - General Family Medicine 07/11/17 documented as of this encounter
--- OUTSIDE RECORDS SUMMARY | 2023-10-16 13:53 | XMS_ITS | Encounter Summary ---
Author Organization [facility] Address [address] [place] [address] Care Team Providers Care Kennel Assistant Name Role Phone Davide Connelly P.A.-C. Primary Care Provider Encounter Details Date Type Department Care Team (Late st Contact Info) Description 08/04/2015 Historical Ophthalmology [facility] Estevan Robledo M.D. [address], [place] [address] Social History Tobacco Use Types Packs/Day Years Used Date Smoking Tobacco: Never Assessed Sex and Gender Information Value Date Recorded Sex Assigned at Female 03/31/2018 8:18 PM MEASUREMENT SUPERVISOR Gender Identity Female 03/31/2018 8:18 PM MEASUREMENT SUPERVISOR Sexual Orientation Straight 03/31/2018 8: 18 PM MEASUREMENT SUPERVISOR documented as of this encounter Progress Notes [...] upper lid. CDM Reports - EYEGEN Id: [id number] Status: Fnl documented in this encounter Plan of Treatment Upcoming Encounters Date Type Department Care Team (Late st Contact Info) Description 10/18/2023 10:00 AM CDT Office Visit Department of Ophthalmology in [place], [place] [address] [phone] Estevan Robledo M.D. [address], [place] [phone] documented as of this encounter Visit Diagnoses Not on filedocumented in this encounter Additional Health Concerns Assessment Noted Time PHQ-9 Depression Total Score: 1 06/23/19 16 12:15 PM CDT documented as of this encounter Care Teams Kennel Assistant Relationship Specialty Start Date End Date Davide Connelly P.A.-C. PCP - General Family Medicine 07/11/17 documented as of this encounter
--- OUTSIDE RECORDS SUMMARY | 2023-10-16 13:53 | XMS_ITS | Encounter Summary ---
Author Organization [facility] Address [address] [place] [address] Care Team Providers Care Detector Car Operator Name Role Phone Davide Connelly P.A.-C. Primary Care Provider Reason for Referral * Outpatient (Routine) - Authorized Specialty Diagnoses / Procedures Referred By Juvenal camejo Referred To Contact Ophthalmology Estevan Robledo M.D. [address] [place] [phone] [facility] Referral ID Status Reason Start Date Expiration Date V isits Requested Visits Authorized [id number] Authorized 09/06/2023 03/07/2025 1 1 Reason for Visit * Reason Comments Follow-up * Outpatient (Routine) - Closed Specialty Diagnoses / Procedures Referred By Juvenal camejo Referred To Contact Ophthalmology Estevan Robledo M.D. [address], [place] [address] [facility] Region Referral ID Status Reason Start Date Expiration Date Visits Re quested Visits Authorized [id number] Closed 08/09/2023 02/07/2025 1 1 Encounter Details Date Type Department Care Team (Latest Contact Info) Description 09/06/2023 10:00 AM CDT Office Visit Department of Ophthalmology in [place], [place] [address] [phone] Estevan Robledo M.D. [address] [phone] Primary Open-Angle Glaucoma Severe Stage Bilateral (Primary [...] week 01/10/2022 How often do you attend [facility] or mormon services? More than 4 times per year 01/10/2022 Do you belong to any clubs o r organizations such as adventism groups, unions, fraternal or athletic groups, or [...] Answer Date Recorded PHQ-2 Score 0 01/11/2022 [facility] - Occupational [...] Sex Assigned at Female 03/31/2018 8:18 PM BACON SKINNER Gender Identity Female 03/31/2018 8:18 PM BACON SKINNER Sexual Orientation Straight 03/31/2018 8: 18 PM BACON SKINNER documented as of this encounter Progress Notes [...] CDT Office Visit Department of Ophthalmology in [place], [place] [address] [place] [phone] Estevan Robledo M.D. [address], [place] [address] Scheduled Referrals Name Type Priority [...] documented as of this encounter Care Teams Detector Car Operator Relationship Specialty Start Date End Date Davide Connelly P.A.-C. PCP - General Family Medicine 07/11/17 documented as of this encounter
--- OUTSIDE RECORDS SUMMARY | 2023-10-16 13:53 | XMS_ITS | Encounter Summary ---
Author Organization [facility] Address [address] [place] [address] Care Team Providers Care Fiberglass Model Maker Name Role Phone Davide Connelly P.A.-C. Primary Care Provider Encounter Details Date Type Department Care Team (Late st Contact Info) Description 11/15/2016 Historical Ophthalmology [facility] Estevan Robledo M.D. [address] [place] [address] Social History Tobacco Use Types Packs/Day Years Used Date Smoking Tobacco: Former Sex and Gender Information Value Date Recorded Sex Assigned at Female 03/31/2018 8:18 PM INFORMATION SYSTEMS PROJECT MANAGER Gender Identity Female 03/31/2018 8:18 PM INFORMATION SYSTEMS PROJECT MANAGER Sexual Orientation Straight 03/31/2018 8: 18 PM INFORMATION SYSTEMS PROJECT MANAGER documented as of this encounter Progress [...] patient currently. CDM Reports - EYEGEN Id: [id number] Status: Fnl documented in this encounter Plan of Treatment Upcoming Encounters Date Type Department Care Team (Late st Contact Info) Description 10/18/2023 10:00 AM CDT Office Visit Department of Ophthalmology in [place], [place] [address] [address] Estevan Robledo M.D. [address], [place] [phone] documented as of this encounter Visit Diagnoses Not on filedocumented in this encounter Additional Health Concerns Assessment Noted Time PHQ-9 Depression Total Score: 2 06/27/19 17 9:59 AM CDT documented as of this encounter Care Teams Fiberglass Model Maker Relationship Specialty Start Date End Date Davide Connelly P.A.-C. PCP - General Family Medicine 07/11/17 documented as of this encounter
--- OUTSIDE RECORDS SUMMARY | 2023-10-16 13:53 | XMS_ITS | Encounter Summary ---
Author Organization [facility] Address [address] [place] [address] Care Team Providers Care Software Team Leader Name Role Phone Davide Connelly P.A.-C. Primary Care Provider Encounter Details Date Type Department Care Team (Late st Contact Info) Description 01/14/2012 Historical Ophthalmology [facility] O[facility] Aries Bacon M.D., M.S. [address] [place] [phone] Social History Tobacco Use Types Packs/Day Years Used Date Smoking Tobacco: Never Assessed Sex and Gender Information Value Date Recorded Sex Assigned at Female 03/31/2018 8:18 PM SHAPER OPERATOR Gender Identity Female 03/31/2018 8:18 PM SHAPER OPERATOR Sexual Orientation Straight 03/31/2018 8: 18 PM SHAPER OPERATOR documented as of this encounter Progress [...] right eye CDM Reports - EYEGEN Id: [id number] Status: Fnl documented in this encounter Plan of Treatment Upcoming Encounters Date Type Department Care Team (Late st Contact Info) Description 10/18/2023 10:00 AM CDT Office Visit Department of Ophthalmology in [place], [place] [address] [place] [phone] Estevan Robledo M.D. [address] [place] [phone] documented as of this encounter Visit Diagnoses Not on filedocumented in this encounter Care Teams Software Team Leader Relationship Specialty Start Date End Date Davide Connelly P.A.-C. PCP - General Family Medicine 07/11/17 documented as of this encounter
--- OUTSIDE RECORDS SUMMARY | 2023-10-16 13:53 | XMS_ITS | Encounter Summary ---
Author Organization [facility] Address [address] [place] [address] Care Team Providers Care Plate Painter Apprentice Name Role Phone Davide Connelly P.A.-C. Primary Care Provider Encounter Details Date Type Department Care Team (Late st Contact Info) Description 01/30/2010 Historical Ophthalmology [facility] O[facility] Aries Bacon M.D., M.S. [address] [place] [phone] Social History Tobacco Use Types Packs/Day Years Used Date Smoking Tobacco: Never Assessed Sex and Gender Information Value Date Recorded Sex Assigned at Female 03/31/2018 8:18 PM PAPERHANGER APPRENTICE Gender Identity Female 03/31/2018 8:18 PM PAPERHANGER APPRENTICE Sexual Orientation Straight 03/31/2018 8: 18 PM PAPERHANGER APPRENTICE documented as of this encounter Progress [...] right eye CDM Reports - EYEGEN Id: [id number] Status: Fnl documented in this encounter Plan of Treatment Upcoming Encounters Date Type Department Care Team (Late st Contact Info) Description 10/18/2023 10:00 AM CDT Office Visit Department of Ophthalmology in [place], [place] [address] [phone] Estevan Robledo M.D. [address] [phone] documented as of this encounter Visit Diagnoses Not on filedocumented in this encounter Care Teams Plate Painter Apprentice Relationship Specialty Start Date End Date Davide Connelly P.A.-C. PCP - General Family Medicine 07/11/17 documented as of this encounter
--- OUTSIDE RECORDS SUMMARY | 2023-10-16 13:53 | XMS_ITS ---
Author Organization [facility] Address [address] [place] [address] Care Team Providers Care Museum Service Scheduler Name Role Phone Unavailable Unavailable Unavailable Surgery Details Not on file Complications Check Surgery Details section. Procedure Estimated Blood Loss Check Surgery Details section. Procedure Findings Check Surgery Details section. Procedure Specimens Taken Check Surgery Details section.
--- OUTSIDE RECORDS SUMMARY | 2023-10-16 13:53 | XMS_ITS | Encounter Summary ---
Author Organization [facility] Address [address] [place] [address] Care Team Providers Care Stitcher Operator Name Role Phone Davide Connelly P.A.-C. Primary Care Provider Encounter Details Date Type Department Care Team (Late st Contact Info) Description 05/22/2010 Historical Ophthalmology [facility] O[facility] Lonnie Colunga M.D. Social History Tobacco Use Types Packs/Day Years Used Date Smoking Tobacco: Never Assessed Sex and Gender Information Value Date Recorded Sex Assigned at Female 03/31/2018 8:18 PM PLASTICS PATTERNMAKER Gender Identity Female 03/31/2018 8:18 PM PLASTICS PATTERNMAKER Sexual Orientation Straight 03/31/2018 8: 18 PM PLASTICS PATTERNMAKER documented as of this encounter Progress Notes * Lonnie Colunga M.D. - 05/22/2010 12:34 PM CDT Eye Postoperative MULTI-VISIT DOCUMENT This document contains multiple patient visits and is available for review in Document Viewer. CDM Reports - EYEPO Id: [id number] Status: Fnl documented in this encounter Plan of Treatment Upcoming Encounters Date Type Department Care Team (Late st Contact Info) Description 10/18/2023 10:00 AM CDT Office Visit Department of Ophthalmology in [place], [place] [address], [place] [address] Estevan Robledo M.D. [address], [place] [phone] documented as of this encounter Visit Diagnoses Not on filedocumented in this encounter Care Teams Stitcher Operator Relationship Specialty Start Date End Date Davide Connelly P.A.-C. PCP - General Family Medicine 07/11/17 documented as of this encounter
--- OUTSIDE RECORDS SUMMARY | 2023-10-16 13:53 | XMS_ITS | Encounter Summary ---
Author Organization [facility] Address [address] [place] [address] Care Team Providers Care Circular Ripsaw Operator Name Role Phone Davide Connelly P.A.-C. Primary Care Provider Encounter Details Date Type Department Care Team (Late st Contact Info) Description 12/20/2016 Historical Ophthalmology [facility] Estevan Robledo M.D. [address] [place] [address] Social History Tobacco Use Types Packs/Day Years Used Date Smoking Tobacco: Former Sex and Gender Information Value Date Recorded Sex Assigned at Female 03/31/2018 8:18 PM MANUFACTURING OPERATIONS MANAGER Gender Identity Female 03/31/2018 8:18 PM MANUFACTURING OPERATIONS MANAGER Sexual Orientation Straight 03/31/2018 8: 18 PM MANUFACTURING OPERATIONS MANAGER documented as of this encounter Progress [...] patient currently. CDM Reports - EYEGEN Id: [id number] Status: Fnl documented in this encounter Plan of Treatment Upcoming Encounters Date Type Department Care Team (Late st Contact Info) Description 10/18/2023 10:00 AM CDT Office Visit Department of Ophthalmology in [place], [place] [address] [place] [phone] Estevan Robledo M.D. [address], [place] [phone] documented as of this encounter Visit Diagnoses Not on filedocumented in this encounter Additional Health Concerns Assessment Noted Time PHQ-9 Depression Total Score: 2 06/27/19 17 9:59 AM CDT documented as of this encounter Care Teams Circular Ripsaw Operator Relationship Specialty Start Date End Date Davide Connelly P.A.-C. PCP - General Family Medicine 07/11/17 documented as of this encounter
--- OUTSIDE RECORDS SUMMARY | 2023-10-16 13:53 | XMS_ITS | Encounter Summary ---
Author Organization [facility] Address [address] [place] [address] Care Team Providers Care Health Assistant Name Role Phone Davide Connelly P.A.-C. Primary Care Provider Encounter Details Date Type Department Care Team (Late st Contact Info) Description 10/03/2010 Historical Ophthalmology RST OPH Aries Bacon M.D., M.S. [address] [place] [phone] Social History Tobacco Use Types Packs/Day Years Used Date Smoking Tobacco: Never Assessed Sex and Gender Information Value Date Recorded Sex Assigned at Female 03/31/2018 8:18 PM ELECTRO MECHANICAL ENGINEER Gender Identity Female 03/31/2018 8:18 PM ELECTRO MECHANICAL ENGINEER Sexual Orientation Straight 03/31/2018 8: 18 PM ELECTRO MECHANICAL ENGINEER documented as of this encounter Progress Notes * Aries Bacno M.D. - 10/03/2010 2:49 PM CDT Eye [...] right eye CDM Reports - EYEGEN Id: [id number] Status: Fnl documented in this encounter Plan of Treatment Upcoming Encounters Date Type Department Care Team (Late st Contact Info) Description 10/18/2023 10:00 AM CDT Office Visit Department of Ophthalmology in [place], [place] [address] [phone] Estevan Robledo M.D. [address] [phone] documented as of this encounter Visit Diagnoses Not on filedocumented in this encounter Care Teams Health Assistant Relationship Specialty Start Date End Date Davide Connelly P.A.-C. PCP - General Family Medicine 07/11/17 documented as of this encounter
--- OUTSIDE RECORDS SUMMARY | 2023-10-16 13:54 | XMS_ITS | Encounter Summary ---
Author Organization [facility] Address [address] [place] [address] Care Team Providers Care Cbx Operator Name Role Phone Davide Connelly P.A.-C. Primary Care Provider Encounter Details Date Type Department Care Team (Late st Contact Info) Description 09/01/2009 Historical Ophthalmology RST OPH Ashlyn Clark C.O.AJonny [address] [place] [phone] Social History Tobacco Use Types Packs/Day Years Used Date Smoking Tobacco: Never Assessed Sex and Gender Information Value Date Recorded Sex Assigned at Female 03/31/2018 8:18 PM MANAGER CONTRACTING Gender Identity Female 03/31/2018 8:18 PM MANAGER CONTRACTING Sexual Orientation Straight 03/31/2018 8: 18 PM MANAGER CONTRACTING documented as of this encounter Progress Notes [...] tomorrow (09/02/09). CDM Reports - EYESV Id: [id number] Status: Fnl documented in this encounter Plan of Treatment Upcoming Encounters Date Type Department Care Team (Late st Contact Info) Description 10/18/2023 10:00 AM CDT Office Visit Department of Ophthalmology in [place], [place] [address] [place] [address] Estevan Robledo M.D. [address] [place] [phone] documented as of this encounter Visit Diagnoses Not on filedocumented in this encounter Care Teams Cbx Operator Relationship Specialty Start Date End Date Davide Connelly P.A.-C. PCP - General Family Medicine 07/11/17 documented as of this encounter
--- OUTSIDE RECORDS SUMMARY | 2023-10-16 13:54 | XMS_ITS | Encounter Summary ---
Author Organization [facility] Address [address] [place] [address] Care Team Providers Care Web Content Writer Name Role Phone Davide Connelly P.A.-C. Primary Care Provider Encounter Details Date Type Department Care Team (Late st Contact Info) Description 09/12/2007 Historical Ophthalmology RST OPH Aries Bacon M.D., M.S. [address] [place] [phone] Social History Tobacco Use Types Packs/Day Years Used Date Smoking Tobacco: Never Assessed Sex and Gender Information Value Date Recorded Sex Assigned at Female 03/31/2018 8:18 PM BELL VALET Gender Identity Female 03/31/2018 8:18 PM BELL VALET Sexual Orientation Straight 03/31/2018 8: 18 PM BELL VALET documented as of this encounter Progress Notes [...] right eye CDM Reports - EYEGEN Id: [id number] Status: Fnl documented in this encounter Plan of Treatment Upcoming Encounters Date Type Department Care Team (Late st Contact Info) Description 10/18/2023 10:00 AM CDT Office Visit Department of Ophthalmology in [place], [place] [address] [phone] Estevan Robledo M.D. [address] [place] [phone] documented as of this encounter Visit Diagnoses Not on filedocumented in this encounter Care Teams Web Content Writer Relationship Specialty Start Date End Date Davide Connelly P.A.-C. PCP - General Family Medicine 07/11/17 documented as of this encounter
--- OUTSIDE RECORDS SUMMARY | 2023-10-16 13:54 | XMS_ITS | Encounter Summary ---
Author Organization [facility] Address [address] [place] [address] Care Team Providers Care Blood Splatter Analyst Name Role Phone aDvide Connelly P.A.-C. Primary Care Provider Encounter Details Date Type Department Care Team (Late st Contact Info) Description 10/06/2009 Historical Ophthalmology RST OPH Aries Bacon M.D., M.S. [address] [place] [phone] Social History Tobacco Use Types Packs/Day Years Used Date Smoking Tobacco: Never Assessed Sex and Gender Information Value Date Recorded Sex Assigned at Female 03/31/2018 8:18 PM PULLEY WORKER Gender Identity Female 03/31/2018 8:18 PM PULLEY WORKER Sexual Orientation Straight 03/31/2018 8: 18 PM PULLEY WORKER documented as of this encounter Progress Notes [...] right eye CDM Reports - EYEGEN Id: [id number] Status: Fnl documented in this encounter Plan of Treatment Upcoming Encounters Date Type Department Care Team (Late st Contact Info) Description 10/18/2023 10:00 AM CDT Office Visit Department of Ophthalmology in [place], [place] [address] [phone] Estevan Robledo M.D. [address] [phone] documented as of this encounter Visit Diagnoses Not on filedocumented in this encounter Care Teams Blood Splatter Analyst Relationship Specialty Start Date End Date Davide Connelly P.A.-C. PCP - General Family Medicine 07/11/17 documented as of this encounter
--- OUTSIDE RECORDS SUMMARY | 2023-10-16 13:54 | XMS_ITS | Encounter Summary ---
Author Organization [facility] Address [address] [place] [address] Care Team Providers Care Management Accountant Name Role Phone Davide Connelly P.A.-C. Primary Care Provider Encounter Details Date Type Department Care Team (Late st Contact Info) Description 10/21/2006 Historical Ophthalmology RST OPH Aries Bacon M.D., M.S. [address] [place] [phone] Social History Tobacco Use Types Packs/Day Years Used Date Smoking Tobacco: Never Assessed Sex and Gender Information Value Date Recorded Sex Assigned at Female 03/31/2018 8:18 PM SUPERVISOR INSPECTING Gender Identity Female 03/31/2018 8:18 PM SUPERVISOR INSPECTING Sexual Orientation Straight 03/31/2018 8: 18 PM SUPERVISOR INSPECTING documented as of this encounter Progress Notes [...] right eye CDM Reports - EYEGEN Id: [id number] Status: Fnl documented in this encounter Plan of Treatment Upcoming Encounters Date Type Department Care Team (Late st Contact Info) Description 10/18/2023 10:00 AM CDT Office Visit Department of Ophthalmology in [place], [place] [address] [phone] Estevan Robledo M.D. [address] [phone] documented as of this encounter Visit Diagnoses Not on filedocumented in this encounter Care Teams Management Accountant Relationship Specialty Start Date End Date Davide Connelly P.A.-C. PCP - General Family Medicine 07/11/17 documented as of this encounter
--- OUTSIDE RECORDS SUMMARY | 2023-10-16 13:54 | XMS_ITS | Encounter Summary ---
Author Organization [facility] Address [address] [place] [address] Care Team Providers Care Head Pastry Chef Name Role Phone Davide Connelly P.A.-C. Primary Care Provider Encounter Details Date Type Department Care Team (Late st Contact Info) Description 04/01/2008 Historical Ophthalmology RST OPH Aries Bacon M.D., M.S. [address] [place] [phone] Social History Tobacco Use Types Packs/Day Years Used Date Smoking Tobacco: Never Assessed Sex and Gender Information Value Date Recorded Sex Assigned at Female 03/31/2018 8:18 PM CUSTOMER SERVICE OFFICER Gender Identity Female 03/31/2018 8:18 PM CUSTOMER SERVICE OFFICER Sexual Orientation Straight 03/31/2018 8: 18 PM CUSTOMER SERVICE OFFICER documented as of this encounter Progress [...] months with RUPERTO - if progression, consider MERCHANDISING INTERN #2 pseudophakia, right eye DIAGNOSIS #1 Iridocorneal endothelial syndrome, right eye #2 Pseudophakia, right eye CDM Reports - EYEGEN Id: [id number] Status: Fnl documented in this encounter Plan of Treatment Upcoming Encounters Date Type Department Care Team (Late st Contact Info) Description 10/18/2023 10:00 AM CDT Office Visit Department of Ophthalmology in [place], [place] [address] [phone] Estevan Robledo M.D. [address] [phone] documented as of this encounter Visit Diagnoses Not on filedocumented in this encounter Care Teams Head Pastry Chef Relationship Specialty Start Date End Date Davide Connelly P.A.-C. PCP - General Family Medicine 07/11/17 documented as of this encounter
--- OUTSIDE RECORDS SUMMARY | 2023-10-16 13:54 | XMS_ITS | Encounter Summary ---
Author Organization [facility] Address [address] [place] [address] Care Team Providers Care Tool Programmer Name Role Phone Davide Connelly P.A.-C. Primary Care Provider Encounter Details Date Type Department Care Team (Late st Contact Info) Description 07/20/2003 Historical Ophthalmology RST OPH Farzad Blackburn M.D. Social History Tobacco Use Types Packs/Day Years Used Date Smoking Tobacco: Never Assessed Sex and Gender Information Value Date Recorded Sex Assigned at Female 03/31/2018 8:18 PM ROTOR CASTING MACHINE OPERATOR Gender Identity Female 03/31/2018 8:18 PM ROTOR CASTING MACHINE OPERATOR Sexual Orientation Straight 03/31/2018 8: 18 PM ROTOR CASTING MACHINE OPERATOR documented as of this encounter [...] pseudophakia OD CDM Reports - EYEGEN Id: [id number] Status: Fnl documented in this encounter Plan of Treatment Upcoming Encounters Date Type Department Care Team (Late st Contact Info) Description 10/18/2023 10:00 AM CDT Office Visit Department of Ophthalmology in [place], [place] [address] [place] [address] Estevan Robledo M.D. [address] [place] [phone] documented as of this encounter Visit Diagnoses Not on filedocumented in this encounter Care Teams Tool Programmer Relationship Specialty Start Date End Date Davide Connelly P.A.-C. PCP - General Family Medicine 07/11/17 documented as of this encounter
--- OUTSIDE RECORDS SUMMARY | 2023-10-16 13:54 | XMS_ITS | Encounter Summary ---
Author Organization [facility] Address [address] [place] [address] Care Team Providers Care Fill Plant Operator Name Role Phone Davide Connelly P.A.-C. Primary Care Provider Encounter Details Date Type Department Care Team (Late st Contact Info) Description 07/22/2009 Historical Ophthalmology RST OPH Aries Bacon M.D., M.S. [address] [place] [phone] Social History Tobacco Use Types Packs/Day Years Used Date Smoking Tobacco: Never Assessed Sex and Gender Information Value Date Recorded Sex Assigned at Female 03/31/2018 8:18 PM MAILING MACHINE HELPER Gender Identity Female 03/31/2018 8:18 PM MAILING MACHINE HELPER Sexual Orientation Straight 03/31/2018 8: 18 PM MAILING MACHINE HELPER documented as of this encounter Progress Notes [...] months - if IOP higher, consider additional SPOT MACHINE OPERATOR Allergy to timolol, trusopt, alphagan P 0.15 and 0.1%, Xalatan, Azopt, carteolol #2 Pseudophakia, right eye Reason for blurred vision unclear. May be due to floaters. Recommend call if vision is particularlyblurred - would be useful to examine at that time. DIAGNOSIS #1 Iridocorneal endothelial syndrome, right eye #2 Pseudophakia, right eye CDM Reports - EYEGEN Id: [id number] Status: Fnl documented in this encounter Plan of Treatment Upcoming Encounters Date Type Department Care Team (Late st Contact Info) Description 10/18/2023 10:00 AM CDT Office Visit Department of Ophthalmology in [place], [place] [address] [phone] Estevan Robledo M.D. [address] [place] [phone] documented as of this encounter Visit Diagnoses Not on filedocumented in this encounter Care Teams Fill Plant Operator Relationship Specialty Start Date End Date Davide Connelly P.A.-C. PCP - General Family Medicine 07/11/17 documented as of this encounter
--- OUTSIDE RECORDS SUMMARY | 2023-10-16 13:54 | XMS_ITS | Encounter Summary ---
Author Organization [facility] Address [address] [place] [address] Care Team Providers Care Switchboard Inspector Name Role Phone Davide Connelly P.A.-C. Primary Care Provider Encounter Details Date Type Department Care Team (Late st Contact Info) Description 06/26/2002 Historical Ophthalmology RST OPH Farzad Blackburn M.D. Social History Tobacco Use Types Packs/Day Years Used Date Smoking Tobacco: Never Assessed Sex and Gender Information Value Date Recorded Sex Assigned at Female 03/31/2018 8:18 PM NEWS COMMENTATOR Gender Identity Female 03/31/2018 8:18 PM NEWS COMMENTATOR Sexual Orientation Straight 03/31/2018 8: 18 PM NEWS COMMENTATOR documented as of this encounter Progress Notes [...] pseudophakia OD CDM Reports - EYEGEN Id: [id number] Status: Fnl documented in this encounter Plan of Treatment Upcoming Encounters Date Type Department Care Team (Late st Contact Info) Description 10/18/2023 10:00 AM CDT Office Visit Department of Ophthalmology in [place], [place] [address], [place] [address] Estevan Robledo M.D. [address] [address] documented as of this encounter Visit Diagnoses Not on filedocumented in this encounter Care Teams Switchboard Inspector Relationship Specialty Start Date End Date Davide Connelly P.A.-C. PCP - General Family Medicine 07/11/17 documented as of this encounter
--- OUTSIDE RECORDS SUMMARY | 2023-10-16 13:54 | XMS_ITS | Encounter Summary ---
Author Organization [facility] Address [address] [place] [address] Care Team Providers Care Information Systems Director Name Role Phone Davide Connelly P.A.-C. Primary Care Provider Encounter Details Date Type Department Care Team (Late st Contact Info) Description 01/18/2003 Historical Ophthalmology RST OPH Farzad Blackburn M.D. Social History Tobacco Use Types Packs/Day Years Used Date Smoking Tobacco: Never Assessed Sex and Gender Information Value Date Recorded Sex Assigned at Female 03/31/2018 8:18 PM COLLECTIONS AGENT Gender Identity Female 03/31/2018 8:18 PM COLLECTIONS AGENT Sexual Orientation Straight 03/31/2018 8: 18 PM COLLECTIONS AGENT documented as of this encounter Progress Notes [...] pseudophakia OD CDM Reports - EYEGEN Id: [id number] Status: Fnl documented in this encounter Plan of Treatment Upcoming Encounters Date Type Department Care Team (Late st Contact Info) Description 10/18/2023 10:00 AM CDT Office Visit Department of Ophthalmology in [place], [place] [address] [place] [address] Estevan Robledo M.D. [address] [place] [phone] documented as of this encounter Visit Diagnoses Not on filedocumented in this encounter Care Teams Information Systems Director Relationship Specialty Start Date End Date Davide Connelly P.A.-C. PCP - General Family Medicine 07/11/17 documented as of this encounter
--- OUTSIDE RECORDS SUMMARY | 2023-10-16 13:54 | XMS_ITS | Encounter Summary ---
Author Organization [facility] Address [address] [place] [address] Care Team Providers Care Wide Area Network Engineer Name Role Phone Davide Connelly P.A.-C. Primary Care Provider Encounter Details Date Type Department Care Team (Late st Contact Info) Description 09/26/2004 Historical Ophthalmology RST OPH Farzad Blackburn M.D. Social History Tobacco Use Types Packs/Day Years Used Date Smoking Tobacco: Never Assessed Sex and Gender Information Value Date Recorded Sex Assigned at Female 03/31/2018 8:18 PM BRAIDING MACHINE TENDER Gender Identity Female 03/31/2018 8:18 PM BRAIDING MACHINE TENDER Sexual Orientation Straight 03/31/2018 8: 18 PM BRAIDING MACHINE TENDER documented as of this encounter Progress Notes * Farzad Blackburn M.D. - 09/26/2004 12:00 AM CDT Eye [...] right eye CDM Reports - EYEGEN Id: [id number] Status: Fnl documented in this encounter Plan of Treatment Upcoming Encounters Date Type Department Care Team (Late st Contact Info) Description 10/18/2023 10:00 AM CDT Office Visit Department of Ophthalmology in [place], [place] [address] [phone] Estevan Robledo M.D. [address] [place] [phone] documented as of this encounter Visit Diagnoses Not on filedocumented in this encounter Care Teams Wide Area Network Engineer Relationship Specialty Start Date End Date Davide Connelly P.A.-C. PCP - General Family Medicine 07/11/17 documented as of this encounter
--- OUTSIDE RECORDS SUMMARY | 2023-10-16 13:54 | XMS_ITS | Encounter Summary ---
Author Organization [facility] Address [address] [place] [address] Care Team Providers Care Vp Of Product Name Role Phone Davide Connelly P.A.-C. Primary Care Provider Encounter Details Date Type Department Care Team (Late st Contact Info) Description 03/08/2009 Historical Ophthalmology RST OPH Camila Flowers M.D. [address] [place] [phone] Social History Tobacco Use Types Packs/Day Years Used Date Smoking Tobacco: Never Assessed Sex and Gender Information Value Date Recorded Sex Assigned at Female 03/31/2018 8:18 PM CAT SCAN TECH Gender Identity Female 03/31/2018 8:18 PM CAT SCAN TECH Sexual Orientation Straight 03/31/2018 8: 18 PM CAT SCAN TECH documented as of this encounter Progress [...] disease. Goal = 14. Multiple drug intolerances. ASPHALT ROLLER OPERATOR (cyclophotocoagulation) right eye recommended. Discussed risk vs. benefit CPCright eye including risk bleeding, infection, loss of vision, high IOP, low IOP, anesthesia risk. All questions answered. #2 Pseudophakia right eye #3 cataract left eye DIAGNOSIS #1 ICE with advanced glaucoama #2 Pseudophakia right eye #3 cataract left eye CDM Reports - EYEGEN Id: [id number] Status: Fnl documented in this encounter Plan of Treatment Upcoming Encounters Date Type Department Care Team (Late st Contact Info) Description 10/18/2023 10:00 AM CDT Office Visit Department of Ophthalmology in [place], [place] [address] [phone] Estevan Robledo M.D. [address] [place] [phone] documented as of this encounter Visit Diagnoses Not on filedocumented in this encounter Care Teams Vp Of Product Relationship Specialty Start Date End Date Davide Connelly P.A.-C. PCP - General Family Medicine 07/11/17 documented as of this encounter
--- OUTSIDE RECORDS SUMMARY | 2023-10-16 13:54 | XMS_ITS | Encounter Summary ---
Author Organization [facility] Address [address] [place] [address] Care Team Providers Care Massage Therapist Name Role Phone Davide Connelly P.A.-C. Primary Care Provider Encounter Details Date Type Department Care Team (Late st Contact Info) Description 10/14/2009 Historical Ophthalmology RST OPH Tyler Saavedra M.D. [address] [place] [phone] Social History Tobacco Use Types Packs/Day Years Used Date Smoking Tobacco: Never Assessed Sex and Gender Information Value Date Recorded Sex Assigned at Female 03/31/2018 8:18 PM FLAT EXAMINER Gender Identity Female 03/31/2018 8:18 PM FLAT EXAMINER Sexual Orientation Straight 03/31/2018 8: 18 PM FLAT EXAMINER documented as of this encounter Progress Notes [...] right eye CDM Reports - EYEGEN Id: [id number] Status: Fnl documented in this encounter Plan of Treatment Upcoming Encounters Date Type Department Care Team (Late st Contact Info) Description 10/18/2023 10:00 AM CDT Office Visit Department of Ophthalmology in [place], [place] [address] [phone] Estevan Robledo M.D. [address] [place] [phone] documented as of this encounter Visit Diagnoses Not on filedocumented in this encounter Care Teams Massage Therapist Relationship Specialty Start Date End Date Davide Connelly P.A.-C. PCP - General Family Medicine 07/11/17 documented as of this encounter
--- OUTSIDE RECORDS SUMMARY | 2023-10-16 13:54 | XMS_ITS | Encounter Summary ---
Author Organization [facility] Address [address] [place] [address] Care Team Providers Care Station Repairer Name Role Phone Davide Connelly P.A.-C. Primary Care Provider Encounter Details Date Type Department Care Team (Late st Contact Info) Description 04/23/2006 Historical Ophthalmology RST OPH Farzad Blackburn M.D. Social History Tobacco Use Types Packs/Day Years Used Date Smoking Tobacco: Never Assessed Sex and Gender Information Value Date Recorded Sex Assigned at Female 03/31/2018 8:18 PM PHARMACY AFFAIRS ASSISTANT Gender Identity Female 03/31/2018 8:18 PM PHARMACY AFFAIRS ASSISTANT Sexual Orientation Straight 03/31/2018 8: 18 PM PHARMACY AFFAIRS ASSISTANT documented as of this encounter Progress [...] right eye CDM Reports - EYEGEN Id: [id number] Status: Fnl documented in this encounter Plan of Treatment Upcoming Encounters Date Type Department Care Team (Late st Contact Info) Description 10/18/2023 10:00 AM CDT Office Visit Department of Ophthalmology in [place], [place] [address] [phone] Estevan Robledo M.D. [address], [place] [phone] documented as of this encounter Visit Diagnoses Not on filedocumented in this encounter Care Teams Station Repairer Relationship Specialty Start Date End Date Davide Connelly P.A.-C. PCP - General Family Medicine 07/11/17 documented as of this encounter
--- OUTSIDE RECORDS SUMMARY | 2023-10-16 13:54 | XMS_ITS | Encounter Summary ---
Author Organization [facility] Address [address] [place] [address] Care Team Providers Care Plate Colorer Name Role Phone Davide Connelly P.A.-C. Primary Care Provider Encounter Details Date Type Department Care Team (Late st Contact Info) Description 06/13/2009 Historical Ophthalmology RST OPH Aries Bacon M.D., M.S. [address] [place] [phone] Social History Tobacco Use Types Packs/Day Years Used Date Smoking Tobacco: Never Assessed Sex and Gender Information Value Date Recorded Sex Assigned at Female 03/31/2018 8:18 PM DYNAMOMETER MECHANIC Gender Identity Female 03/31/2018 8:18 PM DYNAMOMETER MECHANIC Sexual Orientation Straight 03/31/2018 8: 18 PM DYNAMOMETER MECHANIC documented as of this encounter Progress [...] months - if IOP higher, consider additional HOUSEKEEPER/CUSTODIAN/LAUNDRY WORKER Allergy to timolol, trusopt, alphagan P 0.15 and 0.1%, Xalatan, Azopt, carteolol #2 Pseudophakia, 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 [address] [place] [phone] documented as of this encounter Visit Diagnoses Not on filedocumented in this encounter Care Teams Plate Colorer Relationship Specialty Start Date End Date Davide Connelly P.A.-C. PCP - General Family Medicine 07/11/17 documented as of this encounter
--- OUTSIDE RECORDS SUMMARY | 2023-10-16 13:54 | XMS_ITS | Encounter Summary ---
Author Organization [facility] Address [address] [place] [address] Care Team Providers Care Machine Stoppage Frequency Checker Name Role Phone Davide Connelly P.A.-C. Primary Care Provider Encounter Details Date Type Department Care Team (Late st Contact Info) Description 05/15/2007 Historical Ophthalmology RST OPH Aries Bacon M.D., M.S. [address] [place] [phone] Social History Tobacco Use Types Packs/Day Years Used Date Smoking Tobacco: Never Assessed Sex and Gender Information Value Date Recorded Sex Assigned at Female 03/31/2018 8:18 PM DINING MANAGER Gender Identity Female 03/31/2018 8:18 PM DINING MANAGER Sexual Orientation Straight 03/31/2018 8: 18 PM DINING MANAGER documented as of this encounter Progress [...] with vision problems. She had goneback [facility] different times for problems with the Rx. She then wentto [email or web address] 2 times in where she stuck with [...] right eye CDM Reports - EYEGEN Id: [id number] Status: Fnl documented in this encounter Plan of Treatment Upcoming Encounters Date Type Department Care Team (Late st Contact Info) Description 10/18/2023 10:00 AM CDT Office Visit Department of Ophthalmology in [place], [place] [address] [place] [phone] Estevan Robledo M.D. [address] [place] [phone] documented as of this encounter Visit Diagnoses Not on filedocumented in this encounter Care Teams Machine Stoppage Frequency Checker Relationship Specialty Start Date End Date Davide Connelly P.A.-C. PCP - General Family Medicine 07/11/17 documented as of this encounter
--- OUTSIDE RECORDS SUMMARY | 2023-10-16 13:54 | XMS_ITS | Clinical Summary ---
Author Organization [facility] [facility] [facility] Address [place], [place] [address] Care Team Providers Care Supervisor Mixing Name Role Phone Davide Connelly Primary Care Provider Allergies Active Allergy Reactions Criticality Noted Date [...] 1 - PCV) 02/01/2001 COVID-19 vaccine series (2022- season) 2023 01/24/2023, 01/11/2022, 08/21/2021, Additional history exists Influenza for age 65+ 10/27/2023 Medical Devices Implanted Type Area Die Maker Stamping Device Identifier Shelf Expiration Date Model / Serial / Lot [id number] - [id number] Implanted:Qty: 1 on 02/05/2019 by Cabrera Rahman Jr., MD at [facility] Left: Eye [employer] 10/25/2021 [id number] / [id number] / Advance Directives Documents on File Type Date Recorded Patient Biodiesel Engineering Manager Expl anation Healthcare Directive 07/19/2011 12:00 AM A DVANCE DIRECTIVE * Full Code (Latest Code Status on File) Date Activated Date Inactivated Comments 02/05/2019 7:03 AM 02/06/2019 2:33 AM Question Answer Comments Code Status Discussion: Not Discussed * Full Code Date Activated Date Inactivated Comments 01/28/2019 8:11 AM 01/28/2019 12:32 PM Care Teams Supervisor Mixing Relationship Specialty Start Date End Date Davide Connelly PA PCP - General 04/21/18
--- OUTSIDE RECORDS SUMMARY | 2023-10-16 13:54 | XMS_ITS | Encounter Summary ---
Author Organization [facility] Address [address] [place] [address] Care Team Providers Care Respiratory Care Faculty Name Role Phone Davide Connelly P.A.-C. Primary Care Provider Encounter Details Date Type Department Care Team (Late Contact Info) Description 03/22/2009 Historical Ophthalmology RST OPH Aries Bacon M.D., M.S. [address] [place] [phone] Social History Tobacco Use Types Packs/Day Years Used Date Smoking Tobacco: Never Assessed Sex and Gender Information Value Date Recorded Sex Assigned at Female 03/31/2018 8:18 PM BAG BLEACHER Gender Identity Female 03/31/2018 8:18 PM BAG BLEACHER Sexual Orientation Straight 03/31/2018 8: 18 PM BAG BLEACHER documented as of this encounter Progress Notes * Aries Bacon M.D. - 03/22/2009 9:01 AM CST Eye Postoperative MULTI-VISIT DOCUMENT This document contains multiple patient visits and is available for review in Document Viewer. CDM Reports - EYEPO Id: [id number] Status: Fnl documented in this encounter Plan of Treatment Upcoming Encounters Date Type Department Care Team (Late st Contact Info) Description 10/18/2023 10:00 AM CDT Office Visit Department of Ophthalmology in [place], [place] [address] [place] [phone] Estevan Robledo M.D. [address] [place] [phone] documented as of this encounter Visit Diagnoses Not on filedocumented in this encounter Care Teams Respiratory Care Faculty Relationship Specialty Start Date End Date Davide Connelly P.A.-C. PCP - General Family Medicine 07/11/17 documented as of this encounter
--- OUTSIDE RECORDS SUMMARY | 2023-10-16 13:54 | XMS_ITS | Encounter Summary ---
Author Organization [facility] Address [address] [place] [address] Care Team Providers Care Rand Cementer Name Role Phone Davide Connelly P.A.-C. Primary Care Provider Encounter Details Date Type Department Care Team (Late st Contact Info) Description 04/03/2005 Historical Ophthalmology RST OPH Farzad Blackburn M.D. Social History Tobacco Use Types Packs/Day Years Used Date Smoking Tobacco: Never Assessed Sex and Gender Information Value Date Recorded Sex Assigned at Female 03/31/2018 8:18 PM BILINGUAL RECRUITER Gender Identity Female 03/31/2018 8:18 PM BILINGUAL RECRUITER Sexual Orientation Straight 03/31/2018 8: 18 PM BILINGUAL RECRUITER documented as of this encounter Progress Notes [...] right eye CDM Reports - EYEGEN Id: [id number] Status: Fnl documented in this encounter Plan of Treatment Upcoming Encounters Date Type Department Care Team (Late st Contact Info) Description 10/18/2023 10:00 AM CDT Office Visit Department of Ophthalmology in [place], [place] [address], [place] [phone] Estevan Robledo M.D. [address] [phone] documented as of this encounter Visit Diagnoses Not on filedocumented in this encounter Care Teams Rand Cementer Relationship Specialty Start Date End Date Davide Connelly P.A.-C. PCP - General Family Medicine 07/11/17 documented as of this encounter
--- OUTSIDE RECORDS SUMMARY | 2023-10-16 13:54 | XMS_ITS | Encounter Summary ---
Author Organization [facility] Address [address] [place] [address] Care Team Providers Care Marshmallow Maker Name Role Phone Davide Connelly P.A.-C. Primary Care Provider Encounter Details Date Type Department Care Team (Late st Contact Info) Description 01/18/2009 Historical Ophthalmology RST OPH Aries Bacon M.D., M.S. [address] [place] [phone] Social History Tobacco Use Types Packs/Day Years Used Date Smoking Tobacco: Never Assessed Sex and Gender Information Value Date Recorded Sex Assigned at Female 03/31/2018 8:18 PM TIE MAKER Gender Identity Female 03/31/2018 8:18 PM TIE MAKER Sexual Orientation Straight 03/31/2018 8: 18 PM TIE MAKER documented as of this encounter Progress Notes [...] the procedure with the patient (or legal payable representative and otherspresent during the discussion). The patient understands. All questions answered and consent given. 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 [address], [place] [phone] documented as of this encounter Visit Diagnoses Not on filedocumented in this encounter Care Teams Marshmallow Maker Relationship Specialty Start Date End Date Davide Connelly P.A.-C. PCP - General Family Medicine 07/11/17 documented as of this encounter
--- OUTSIDE RECORDS SUMMARY | 2023-10-16 13:54 | XMS_ITS | Encounter Summary ---
Author Organization [facility] Address [address] [place] [address] Care Team Providers Care Snack Foods Mixer Operator Name Role Phone Davide Connelly P.A.-C. Primary Care Provider Encounter Details Date Type Department Care Team (Late st Contact Info) Description 09/02/2009 Historical Ophthalmology RST OPH Aries Bacon M.D., M.S. [address] [place] [phone] Social History Tobacco Use Types Packs/Day Years Used Date Smoking Tobacco: Never Assessed Sex and Gender Information Value Date Recorded Sex Assigned at Female 03/31/2018 8:18 PM AERONAUTICAL PROJECT ENGINEER Gender Identity Female 03/31/2018 8:18 PM AERONAUTICAL PROJECT ENGINEER Sexual Orientation Straight 03/31/2018 8: 18 PM AERONAUTICAL PROJECT ENGINEER documented as of this encounter Progress [...] right eye CDM Reports - EYEGEN Id: [id number] Status: Fnl documented in this encounter Plan of Treatment Upcoming Encounters Date Type Department Care Team (Late st Contact Info) Description 10/18/2023 10:00 AM CDT Office Visit Department of Ophthalmology in [place], [place] [address] [place] [phone] Estevan Robledo M.D. [address], [place] [phone] documented as of this encounter Visit Diagnoses Not on filedocumented in this encounter Care Teams Snack Foods Mixer Operator Relationship Specialty Start Date End Date Davide Connelly P.A.-C. PCP - General Family Medicine 07/11/17 documented as of this encounter
--- OUTSIDE RECORDS SUMMARY | 2023-10-16 13:54 | XMS_ITS | Encounter Summary ---
Author Organization [facility] Address [address] [place] [address] Care Team Providers Care Candy Separator Enrobing Name Role Phone Davide Connelly P.A.-C. Primary Care Provider Encounter Details Date Type Department Care Team (Late st Contact Info) Description 11/20/2005 Historical Ophthalmology RST OPH Farzad Blackburn M.D. Social History Tobacco Use Types Packs/Day Years Used Date Smoking Tobacco: Never Assessed Sex and Gender Information Value Date Recorded Sex Assigned at Female 03/31/2018 8:18 PM LANG INTERPRETER Gender Identity Female 03/31/2018 8:18 PM LANG INTERPRETER Sexual Orientation Straight 03/31/2018 8: 18 PM LANG INTERPRETER documented as of this encounter Progress Notes * Farzad Blackburn M.D. - 11/20/2005 12:00 AM CDT Eye General CHIEF COMPLAINT Patient states recheck HISTORY OF PRESENT ILLNESS having lid itiching and allergy since starting azopt IMPRESSION / REPORT / PLAN #1 iridocorneal endothelial syndrome, right eye goal 14 CT 567,759 field 2006: R dble arcs = 1996; [...] right eye CDM Reports - EYEGEN Id: [id number] Status: Fnl documented in this encounter Plan of Treatment Upcoming Encounters Date Type Department Care Team (Late st Contact Info) Description 10/18/2023 10:00 AM CDT Office Visit Department of Ophthalmology in [place], [place] [address], [place] [phone] Estevan Robledo M.D. [address], [place] [phone] documented as of this encounter Visit Diagnoses Not on filedocumented in this encounter Care Teams Candy Separator Enrobing Relationship Specialty Start Date End Date Davide Connelly P.A.-C. PCP - General Family Medicine 07/11/17 documented as of this encounter
--- OUTSIDE RECORDS SUMMARY | 2023-10-16 13:54 | XMS_ITS | Encounter Summary ---
Author Organization [facility] Address [address] [place] [address] Care Team Providers Care Sheet Pile Driver Operator Name Role Phone Davide Connelly P.A.-C. Primary Care Provider Encounter Details Date Type Department Care Team (Late st Contact Info) Description 01/03/2004 Historical Ophthalmology RST OPH Farzad Blackburn M.D. Social History Tobacco Use Types Packs/Day Years Used Date Smoking Tobacco: Never Assessed Sex and Gender Information Value Date Recorded Sex Assigned at Female 03/31/2018 8:18 PM PULPWOOD DEALER Gender Identity Female 03/31/2018 8:18 PM PULPWOOD DEALER Sexual Orientation Straight 03/31/2018 8: 18 PM PULPWOOD DEALER documented as of this encounter Progress Notes [...] pseudophakia OD CDM Reports - EYEGEN Id: [id number] Status: Fnl documented in this encounter Plan of Treatment Upcoming Encounters Date Type Department Care Team (Late st Contact Info) Description 10/18/2023 10:00 AM CDT Office Visit Department of Ophthalmology in [place], [place] [address] [phone] Estevan Robledo M.D. [address], [place] [phone] documented as of this encounter Visit Diagnoses Not on filedocumented in this encounter Care Teams Sheet Pile Driver Operator Relationship Specialty Start Date End Date Davide Connelly P.A.-C. PCP - General Family Medicine 07/11/17 documented as of this encounter
--- OUTSIDE RECORDS SUMMARY | 2023-10-16 13:54 | XMS_ITS | Encounter Summary ---
Author Organization [facility] Address [address] [place] [address] Care Team Providers Care Napper Tender Name Role Phone Davide Connelly P.A.-C. Primary Care Provider Encounter Details Date Type Department Care Team (Late st Contact Info) Description 11/10/2007 Historical Ophthalmology RST OPH Aries Bacon M.D., M.S. 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 [address] [phone] documented as of this encounter Visit Diagnoses Not on filedocumented in this encounter Care Teams Napper Tender Relationship Specialty Start Date End Date Davide Connelly P.A.-C. PCP - General Family Medicine 07/11/17 documented as of this encounter
--- OUTSIDE RECORDS SUMMARY | 2023-10-16 13:54 | XMS_ITS | Encounter Summary ---
Author Organization [facility] Address [address] [place] [address] Care Team Providers Care Knotting Machine Operator Portable Name Role Phone Davide Connelly P.A.-C. Primary Care Provider Encounter Details Date Type Department Care Team (Late st Contact Info) Description 10/11/2005 Historical Ophthalmology RST OPH Farzad Blackburn M.D. Social History Tobacco Use Types Packs/Day Years Used Date Smoking Tobacco: Never Assessed Sex and Gender Information Value Date Recorded Sex Assigned at Female 03/31/2018 8:18 PM COMMERCIAL REAL ESTATE ATTORNEY Gender Identity Female 03/31/2018 8:18 PM COMMERCIAL REAL ESTATE ATTORNEY Sexual Orientation Straight 03/31/2018 8: 18 PM COMMERCIAL REAL ESTATE ATTORNEY documented as of this encounter Progress [...] right eye CDM Reports - EYEGEN Id: [id number] Status: Fnl documented in this encounter Plan of Treatment Upcoming Encounters Date Type Department Care Team (Late st Contact Info) Description 10/18/2023 10:00 AM CDT Office Visit Department of Ophthalmology in [place], [place] [address] [place] [phone] Estevan Robledo M.D. [address] [place] [phone] documented as of this encounter Visit Diagnoses Not on filedocumented in this encounter Care Teams Knotting Machine Operator Portable Relationship Specialty Start Date End Date Davide Connelly P.A.-C. PCP - General Family Medicine 07/11/17 documented as of this encounter
--- OUTSIDE RECORDS SUMMARY | 2023-10-16 13:54 | XMS_ITS | Encounter Summary ---
Author Organization [facility] Address [address] [place] [address] Care Team Providers Care Education Teacher Name Role Phone Davide Connelly P.A.-C. Primary Care Provider Encounter Details Date Type Department Care Team (Late st Contact Info) Description 05/27/2002 Historical Ophthalmology RST OPH Farzad Blackburn M.D. Social History Tobacco Use Types Packs/Day Years Used Date Smoking Tobacco: Never Assessed Sex and Gender Information Value Date Recorded Sex Assigned at Female 03/31/2018 8:18 PM VACCINE CUSTOMER REPRESENTATIVE Gender Identity Female 03/31/2018 8:18 PM VACCINE CUSTOMER REPRESENTATIVE Sexual Orientation Straight 03/31/2018 8: 18 PM VACCINE CUSTOMER REPRESENTATIVE documented as of this encounter Progress Notes [...] pseudophakia OD CDM Reports - EYEGEN Id: [id number] Status: Fnl documented in this encounter Plan of Treatment Upcoming Encounters Date Type Department Care Team (Late st Contact Info) Description 10/18/2023 10:00 AM CDT Office Visit Department of Ophthalmology in [place], [place] [address] [place] [phone] Estevan Robledo M.D. [address], [place] [phone] documented as of this encounter Visit Diagnoses Not on filedocumented in this encounter Care Teams Education Teacher Relationship Specialty Start Date End Date Dvaide Connelly P.A.-C. PCP - General Family Medicine 07/11/17 documented as of this encounter
--- OUTSIDE RECORDS SUMMARY | 2023-10-16 13:54 | XMS_ITS | Encounter Summary ---
Author Organization [facility] Address [address] [place] [address] Care Team Providers Care Traveling Secretary Name Role Phone Davide Connelly P.A.-C. Primary Care Provider Encounter Details Date Type Department Care Team (Late st Contact Info) Description 07/07/2007 Historical Ophthalmology RST OPH Aries Bacon M.D., M.S. [address] [place] [phone] Social History Tobacco Use Types Packs/Day Years Used Date Smoking Tobacco: Never Assessed Sex and Gender Information Value Date Recorded Sex Assigned at Female 03/31/2018 8:18 PM HORTICULTURAL SPECIALTY GROWER FIELD Gender Identity Female 03/31/2018 8:18 PM HORTICULTURAL SPECIALTY GROWER FIELD Sexual Orientation Straight 03/31/2018 8: 18 PM HORTICULTURAL SPECIALTY GROWER FIELD documented as of this encounter Progress Notes [...] right eye CDM Reports - EYEGEN Id: [id number] Status: Fnl documented in this encounter Plan of Treatment Upcoming Encounters Date Type Department Care Team (Late st Contact Info) Description 10/18/2023 10:00 AM CDT Office Visit Department of Ophthalmology in [place], [place] [address] [phone] Estevan Robledo M.D. [address] [place] [phone] documented as of this encounter Visit Diagnoses Not on filedocumented in this encounter Care Teams Traveling Secretary Relationship Specialty Start Date End Date Davide Connelly P.A.-C. PCP - General Family Medicine 07/11/17 documented as of this encounter
== END 2023-10-16 13:50 | disposition home or self-care (01) ==
LOC: WOUND 13:51
PROVIDERS: PCP Physician Assistant; Visit Provider Surgery
DX: I87.303 Chronic venous hypertension (idiopathic) without complications of bilateral lower extremity (principal); M20.42 Other hammer toe(s) (acquired), left foot
CPT/HCPCS: G0463

== ENCOUNTER 2023-11-19 08:38 | Outpatient (CLI) | payer MEDICARE, BC, SELFPAY ==
--- OUTSIDE RECORDS SUMMARY | 2023-11-23 06:52 | XMS_ITS ---
Author Organization [facility] Address [address] [place] [address] Care Team Providers Care Visual Education Director Name Role Phone Unavailable Unavailable Unavailable Surgery Details Not on file Complications Check Surgery Details section. Procedure Estimated Blood Loss Check Surgery Details section. Procedure Findings Check Surgery Details section. Procedure Specimens Taken Check Surgery Details section.
--- OUTSIDE RECORDS SUMMARY | 2023-11-23 06:52 | XMS_ITS | Clinical Summary ---
Author Organization [facility] Address [address] [place] [address] Care Team Providers Care Training Generalist Name Role Phone Davide Connelly P.A.-C. Primary Care Provider Source Comments Patient records contain information from all sites at [facility]. For routine questions regarding patient records, call [phone] during business hours, M-F 8:00 AM - 5:00 PM Central Time. Record requests for emergency care only can be directed to [phone] at any time.[facility] Allergies Active Allergy Reactions Criticality Noted [...] Office Visit Department of Ophthalmology in [place], [place] [address] [place] [phone] Estevan Robledo M.D. Primary Open-Angle Glaucoma Severe Stage Bilateral (Primary Dx); Edema Corneal Secondary Right; Dry Eye Syndrome Right 09/06/2023 10:00 AM CDT Office Visit Department of Ophthalmology in [place], [place] [address] [address] Estevan Robledo M.D. Primary Open-Angle Glaucoma Severe Stage Bilateral (Primary Dx); Edema Corneal Secondary Right 08/30/2023 Refill Department of Obstetrics and Gynecology in [place] [address] [facility] [place] [address] Kaila Blackburn, [place], C.N.P. Med Refill from Last 3 Months Immunizations Name Administration Dates Next Due DT, Pediatric 05/30/2007 HZV (ZOSTAVAX) 03/04/2013 Influenza high dose QV(65 ye ars or older) (PF) 01/24/2023,01/11/2022,12/19/2020 Influenza, Unspecified 12/10/2019,2018,12/30/2017,2016,12/29/2015,12/28/2014,12/29/2013,1 ,12/31/2011,12/21/2010, 010,11/10/2008,12/24/2007,12/16/2006, PCV13 06/21/2014 PPSV23 08/09/2001,04/01/2000 RZV (SHINGRIX) 01/11/2021(Deferred: Patient decision),01/28/2020 SARS-COV-2 (COVID-19) - MODE RNA (12 YEARS AND OLDER) [id number] 01/24/2023 SARS-COV-2 (COVID-19) - PFIZ ER (Discontinued)(12 [...] Hypertension Brother Coronary artery disease Father Nicholas Barriso Heart attack Father Nicholas Barrios Colon cancer [...] often do you attend chur ch or confucianist services? More than 4 times per year 01/10/2022 Do you belong to any clubs o r organizations such as jew groups, unions, fraternal or athletic groups, or [...] Answer Date Recorded PHQ-2 Score 0 01/11/2022 [facility] - Occupational Stress Questionnaire Answer Date [...] Sex Assigned at Female 03/31/2018 8:18 PM BRANCH COORDINATOR Gender Identity Female 03/31/2018 8:18 PM BRANCH COORDINATOR Sexual Orientation Straight 03/31/2018 8: 18 PM BRANCH COORDINATOR Last Filed Vital Signs Vital Sign Reading Time Taken Comments Blood Pressure 116/64 01/24/2023 11:06 AM BRANCH COORDINATOR Pulse 56 01/24/2023 10:51 AM BRANCH COORDINATOR Temperature 36 ??C (96.8 ??F) 01/24/2023 10:46 AM BRANCH COORDINATOR Respiratory Rate 20 01/24/2023 10:46 AM BRANCH COORDINATOR Oxygen Saturation 100% 07/29/2020 9:54 AM CDT Inhaled Oxygen Concentration - - Weight 53.7 kg (118 lb 4.4 oz) 01/24/2023 10:46 AM BRANCH COORDINATOR Height 163 cm (5' 4.17) 01/24/2023 10:46 AM BRANCH COORDINATOR Body Mass Index 20.19 01/24/2023 10:46 AM BRANCH COORDINATOR Plan of Treatment Upcoming Encounters Date Type Department Care Team (Late st Contact Info) Description 11/25/2023 11:00 AM CDT Office Visit Department of Ophthalmology in [place], [place] [address] [phone] Estevan Robledo M.D. [address], [place] [address] Health Maintenance Due Date Last [...] 04/2019, 03/04/2013 Medical Devices Implanted Type Area Operations Section Manager Device Identifier Shelf Expiration Date Model / Serial / Lot Sclera Tissue Shell 1 2 - Flores Implanted:Qty: 1 on 07/18/1999 Ocular (Eye[facility] Medical Description:Device Manufactu [facility] [employer] [facility]. Device Status Text - [id number]. Procedures Procedure Name Priority Date/Time Associated Diagnosis Comments COMPREHENSIVE METABOLIC PANEL, S/P Routine 01/23/2023 9:15 AM BRANCH COORDINATOR Hypertension Essential Primary from Last 3 Months or Most Recently Relevant to Health Maintenance Results * Comprehensive Metabolic Panel (01/23/2023 9:15 AM BRANCH COORDINATOR) Potassium, P 4.7 3.6 - 5.2 mmol/L 01/23/2023 11:56 AM BRANCH COORDINATOR OWAT Sodium, P 136 135 - 145 mmol/L 01/23/2023 11:56 AM BRANCH COORDINATOR OWAT Chloride, P 100 98 - 107 mmol/L 01/23/2023 11:56 AM BRANCH COORDINATOR OWAT Bicarbonate, P 23 22 - 29 mmol/L 01/23/2023 11:56 AM BRANCH COORDINATOR OWAT Anion Gap, P 13 7 - 15 01/23/2023 11:56 AM BRANCH COORDINATOR OWAT BUN (Blood Urea Nitrogen), P 20 6 - 21 mg/dL 01/23/2023 11:56 AM BRANCH COORDINATOR OWAT Creatinine 0.84 0.59 - 1.04 mg/dL 01/23/2023 11:56 AM BRANCH COORDINATOR OWAT Estimated GFR (eGFR) 68 >=60 mL/min/BS A 01/23/2023 11:56 AM BRANCH COORDINATOR OWAT Comment: Estimated GFR calculated using the 2020 CKD_EPI creatinine equation. Calcium, Total, P 9.6 8.8 - 10.2 mg/dL 01/23/2023 11:56 AM BRANCH COORDINATOR OWAT Glucose, P 99 70 - 140 mg/dL 01/23/2023 11:56 AM BRANCH COORDINATOR OWAT Protein, Total, P 7.0 6.3 - 7.9 g/dL 01/23/2023 11:56 AM BRANCH COORDINATOR OWAT Albumin, P 4.4 3.5 - 5.0 g/dL 01/23/2023 11:56 AM BRANCH COORDINATOR OWAT Aspartate Aminotransferase (AST), P 20 8 - 43 U/L 01/23/2023 11:56 AM BRANCH COORDINATOR OWAT Alkaline Phosphatase, P 85 35 - 104 U/L 01/23/2023 11:56 AM BRANCH COORDINATOR OWAT Alanine Aminotransferase (ALT), P 11 7 - 45 U/L 01/23/2023 11:56 AM BRANCH COORDINATOR OWAT Bilirubin, Total, P 0.3 0.0 - 1.2 mg/dL 01/23/2023 11:56 AM BRANCH COORDINATOR OWAT Blood (Blood, Venous) 01/23/2023 9:15 AM BRANCH COORDINATOR 01/23/2023 11:17 AM BRANCH COORDINATOR Davide Connelly P.A.-C. LAB BLOOD ADD- ON [facility] [address] [place] [address], [place] OWAT [facility] [place] [address] [place] [address] from Last 3 Months or Most Recently Relevant to Health Maintenance Advance Directives For more information, please contact: [phone] Documents on File Type Date Recorded Patient Flour Mixer Expl anation Advance Directives 03/16/2011 12:00 AM Leg acy document. See document viewer. Care Teams Training Generalist Relationship Specialty Start Date End Date Davide Connelly P.A.-C. PCP - General Family Medicine 07/11/17
--- OUTSIDE RECORDS SUMMARY | 2023-11-23 06:52 | XMS_ITS | Referral Summary ---
Author Organization [facility] Address [address] [place] [address] Care Team Providers Care Corporate Compliance Manager Name Role Phone Davide Connelly P.A.-C. Primary Care Provider Source Comments Patient records contain information from all sites at [facility]. For routine questions regarding patient records, call [phone] during business hours, M-F 8:00 AM - 5:00 PM Central Time. Record requests for emergency care only can be directed to [phone] at any time.[facility] Encounters Date Type Department Care Team Description 10/18/2023 10:00 AM CDT Office Visit Department of Ophthalmology in [place], [place] [address] [place] [phone] Estevan Robledo M.D. Primary Open-Angle Glaucoma Severe Stage Bilateral (Primary Dx); Edema Corneal Secondary Right; Dry Eye Syndrome Right 09/06/2023 10:00 AM CDT Office Visit Department of Ophthalmology in [place], [place] [address] [phone] Estevan Robledo M.D. Primary Open-Angle Glaucoma Severe Stage Bilateral (Primary Dx); Edema Corneal Secondary Right 08/30/2023 Refill Department of Obstetrics and Gynecology in [address] [phone] Kaila Blackburn APRN, C.N.P. Med Refill from [...] - MODE RNA (12 YEARS AND OLDER) [id number] 01/24/2023 SARS-COV-2 (COVID-19) - PFIZ ER (Discontinued)(12 [...] How often do you attend chur or latter-day services? More than 4 times per year 01/10/2022 Do you belong to any clubs o r organizations such as druze groups, unions, fraternal or athletic groups, or [...] Score 0 01/11/2022 [facility] - Occupational Stress Questionnaire Answer Date [...] Sex Assigned at Female 03/31/2018 8:18 PM RAIL SWITCHMAN Gender Identity Female 03/31/2018 8:18 PM RAIL SWITCHMAN Sexual Orientation Straight 03/31/2018 8: 18 PM RAIL SWITCHMAN Last Filed Vital Signs Vital Sign Reading Time Taken Comments Blood Pressure 116/64 01/24/2023 11:06 AM RAIL SWITCHMAN Pulse 56 01/24/2023 10:51 AM RAIL SWITCHMAN Temperature 36 ??C (96.8 ??F) 01/24/2023 10:46 AM RAIL SWITCHMAN Respiratory Rate 20 01/24/2023 10:46 AM RAIL SWITCHMAN Oxygen Saturation 100% 07/29/2020 9:54 AM CDT Inhaled Oxygen Concentration - - Weight 53.7 kg (118 lb 4.4 oz) 01/24/2023 10:46 AM RAIL SWITCHMAN Height 163 cm (5' 4.17) 01/24/2023 10:46 AM RAIL SWITCHMAN Body Mass Index 20.19 01/24/2023 10:46 AM RAIL SWITCHMAN Plan of Treatment Upcoming Encounters Date Type Department Care Team (Late st Contact Info) Description 11/25/2023 11:00 AM CDT Office Visit Department of Ophthalmology in [place], [place] [address] [phone] Estevan Robledo M.D. [address] [place] [phone] Medical Devices Implanted Type Area Dam Tender Assistant Device Identifier Shelf Expiration Date Model / Serial / Lot Sclera Tissue Shell 1 2 - Flores Implanted:Qty: 1 on 07/18/1999 Ocular (Eye) Implant Brasseler [employer] Medical Description:Device Manufactu rer - Associated Material Processingeler [employer]. Device Status Text - OCULARIMP-. Procedures Procedure Name Priority Date/Time Associated Diagnosis Comments COMPREHENSIVE METABOLIC PANEL, S/P Routine 01/23/2023 9:15 AM RAIL SWITCHMAN Hypertension Essential Primary from Last 3 Months or Most Recently Relevant to Health Maintenance Results * Comprehensive Metabolic Panel (01/23/2023 9:15 AM RAIL SWITCHMAN) Potassium, P 4.7 3.6 - 5.2 mmol/L 01/23/2023 11:56 AM RAIL SWITCHMAN OWAT Sodium, P 136 135 - 145 mmol/L 01/23/2023 11:56 AM RAIL SWITCHMAN OWAT Chloride, P 100 98 - 107 mmol/L 01/23/2023 11:56 AM RAIL SWITCHMAN OWAT Bicarbonate, P 23 22 - 29 mmol/L 01/23/2023 11:56 AM RAIL SWITCHMAN OWAT Anion Gap, P 13 7 - 15 01/23/2023 11:56 AM RAIL SWITCHMAN OWAT BUN (Blood Urea Nitrogen), P 20 6 - 21 mg/dL 01/23/2023 11:56 AM RAIL SWITCHMAN OWAT Creatinine 0.84 0.59 - 1.04 mg/dL 01/23/2023 11:56 AM RAIL SWITCHMAN OWAT Estimated GFR (eGFR) 68 >=60 mL/min/BS A 01/23/2023 11:56 AM RAIL SWITCHMAN OWAT Comment: Estimated GFR calculated using the 2020 CKD_EPI creatinine equation. Calcium, Total, P 9.6 8.8 - 10.2 mg/dL 01/23/2023 11:56 AM RAIL SWITCHMAN OWAT Glucose, P 99 70 - 140 mg/dL 01/23/2023 11:56 AM RAIL SWITCHMAN OWAT Protein, Total, P 7.0 6.3 - 7.9 g/dL 01/23/2023 11:56 AM RAIL SWITCHMAN OWAT Albumin, P 4.4 3.5 - 5.0 g/dL 01/23/2023 11:56 AM RAIL SWITCHMAN OWAT Aspartate Aminotransferase (AST), P 20 8 - 43 U/L 01/23/2023 11:56 AM RAIL SWITCHMAN OWAT Alkaline Phosphatase, P 85 35 - 104 U/L 01/23/2023 11:56 AM RAIL SWITCHMAN OWAT Alanine Aminotransferase (ALT), P 11 7 - 45 U/L 01/23/2023 11:56 AM RAIL SWITCHMAN OWAT Bilirubin, Total, P 0.3 0.0 - 1.2 mg/dL 01/23/2023 11:56 AM RAIL SWITCHMAN OWAT Blood (Blood, Venous) 01/23/2023 9:15 AM RAIL SWITCHMAN 01/23/2023 11:17 AM RAIL SWITCHMAN Davide Connelly P.A.-C. LAB BLOOD ADD- ON [facility] [address] [facility] [place] [address], [place] OWAT [facility] [place] [facility] [place] [address] [place] [address] from Last 3 Months or Most Recently Relevant to Health Maintenance Advance Directives For more information, please contact: [phone] Documents on File Type Date Recorded Patient Rn Concurrent Review Expl anation Advance Directives 03/16/2011 12:00 AM Leg acy document. See document viewer. Care Teams Corporate Compliance Manager Relationship Specialty Start Date End Date Davide Connelly P.A.-C. PCP - General Family Medicine 07/11/17
--- OUTSIDE RECORDS SUMMARY | 2023-11-23 06:52 | XMS_ITS | Encounter Summary ---
Author Organization [facility] Address [address] [place] [address] Care Team Providers Care Size Marker Name Role Phone Davide Connelly P.A.-C. Primary Care Provider Reason for Referral * Outpatient (Routine) - Authorized Specialty Diagnoses / Procedures Referred By Juvenal camejo Referred To Contact Ophthalmology Estevan Robledo M.D. [address], [place] [address] [facility] Referral ID Status Reason Start Date Expiration Date V isits Requested Visits Authorized [id number] Authorized 10/18/2023 04/18/2025 1 1 Reason for Visit * Reason Comments Follow-up * Outpatient (Routine) - Closed Specialty Diagnoses / Procedures Referred By Juvenal camejo Referred To Contact Ophthalmology Estevan Robledo M.D. [address], [place] [address] [facility] Region Referral ID Status Reason Start Date Expiration Date Visits Re quested Visits Authorized [id number] Closed 09/06/2023 03/07/2025 1 1 Encounter Details Date Type Department Care Team (Latest Contact Info) Description 10/18/2023 10:00 AM CDT Office Visit Department of Ophthalmology in [place], [place] [address] [place] [phone] Estevan Robledo M.D. [address] [place] [phone] Primary Open-Angle Glaucoma Severe Stage Bilateral (Primary [...] How often do you attend chur or jain services? More than 4 times per year 01/10/2022 Do you belong to any clubs o r organizations such as orthodox groups, unions, fraternal or athletic groups, or [...] Answer Date Recorded PHQ-2 Score 0 01/11/2022 [facility] Occupat ional Health - Occupational Stress [...] Sex Assigned at Female 03/31/2018 8:18 PM COMMUNITY ADMINISTRATOR Gender Identity Female 03/31/2018 8:18 PM COMMUNITY ADMINISTRATOR Sexual Orientation Straight 03/31/2018 8: 18 PM COMMUNITY ADMINISTRATOR documented as of this encounter Progress [...] CDT Office Visit Department of Ophthalmology in [place], [place] [address] [place] [phone] Estevan Robledo M.D. [address] [place] [phone] Scheduled Referrals Name Type Priority Associated Diagnoses [...] documented as of this encounter Care Teams Size Marker Relationship Specialty Start Date End Date Davide Connelly P.A.-C. PCP - General Family Medicine 07/11/17 documented as of this encounter
--- OUTSIDE RECORDS SUMMARY | 2023-11-23 06:52 | XMS_ITS | Encounter Summary ---
Author Organization [facility] Address [address] [place] [address] Care Team Providers Care Field Geologist Name Role Phone Davide Connelly P.A.-C. Primary Care Provider Reason for Referral * Outpatient (Routine) - Closed Specialty Diagnoses / Procedures Referred By Juvenal camejo Referred To Contact Ophthalmology Estevan Robledo M.D. [address] [place] [phone] [facility] Referral ID Status Reason Start Date Expiration Date Visits Re quested Visits Authorized [id number] Closed 09/06/2023 03/07/2025 1 1 Reason for Visit * Reason Comments Follow-up * Outpatient (Routine) - Closed Specialty Diagnoses / Procedures Referred By Juvenal camejo Referred To Contact Ophthalmology Estevan Robledo M.D. [address] [address] [facility] Region Referral ID Status Reason Start Date Expiration Date Visits Re quested Visits Authorized [id number] Closed 08/09/2023 02/07/2025 1 1 Encounter Details Date Type Department Care Team (Latest Contact Info) Description 09/06/2023 10:00 AM CDT Office Visit Department of Ophthalmology in [place], [place] [address] [phone] Estevan Robledo M.D. [address] [phone] Primary Open-Angle Glaucoma Severe Stage Bilateral (Primary [...] week 01/10/2022 How often do you attend [facility] or confucianism services? More than 4 times per year 01/10/2022 Do you belong to any clubs o r organizations such as uatsdin groups, unions, fraternal or athletic groups, or [...] 01/11/2022 [facility] Occupat ional Health - Occupational [...] place to sleep or slept in a longterm (including now)? No 01/10/2022 Depression Answer Date [...] Assigned at Female 03/31/2018 8:18 PM AUTO APPRAISER Gender Identity Female 03/31/2018 8:18 PM AUTO APPRAISER Sexual Orientation Straight 03/31/2018 8: 18 PM AUTO APPRAISER documented as of this encounter Progress Notes [...] CDT Office Visit Department of Ophthalmology in [place], [place] [address] [place] [phone] Estevan Robledo M.D. [address], [place] [phone] Scheduled Referrals Name Type Priority [...] documented as of this encounter Care Teams Field Geologist Relationship Specialty Start Date End Date Davide Connelly P.A.-C. PCP - General Family Medicine 07/11/17 documented as of this encounter
--- OUTSIDE RECORDS SUMMARY | 2023-11-23 06:53 | XMS_ITS | Encounter Summary ---
Author Organization [facility] Address [address] [place] [address] Care Team Providers Care Cold Storage Superintendent Name Role Phone Davide Connelly P.A.-C. Primary Care Provider Encounter Details Date Type Department Care Team (Late st Contact Info) Description 08/04/2015 Historical Ophthalmology [facility] Estevan Robledo M.D. [address], [place] [phone] Social History Tobacco Use Types Packs/Day Years Used Date Smoking Tobacco: Never Assessed Sex and Gender Information Value Date Recorded Sex Assigned at Female 03/31/2018 8:18 PM WHITE WORK CLEANER Gender Identity Female 03/31/2018 8:18 PM WHITE WORK CLEANER Sexual Orientation Straight 03/31/2018 8: 18 PM WHITE WORK CLEANER documented as of this encounter Progress Notes [...] upper lid. CDM Reports - EYEGEN Id: [id number] Status: Fnl documented in this encounter Plan of Treatment Upcoming Encounters Date Type Department Care Team (Late st Contact Info) Description 11/25/2023 11:00 AM CDT Office Visit Department of Ophthalmology in [place], [place] [address], [place] [phone] Estevan Robledo M.D. [address] [place] [phone] documented as of this encounter Visit Diagnoses Not on filedocumented in this encounter Additional Health Concerns Assessment Noted Time PHQ-9 Depression Total Score: 1 06/23/19 16 12:15 PM CDT documented as of this encounter Care Teams Cold Storage Superintendent Relationship Specialty Start Date End Date Davide Connelly P.A.-C. PCP - General Family Medicine 07/11/17 documented as of this encounter
--- OUTSIDE RECORDS SUMMARY | 2023-11-23 06:53 | XMS_ITS | Encounter Summary ---
Author Organization [facility] Address [address] [place] [address] Care Team Providers Care Wire Temperer Name Role Phone Davide Connelly P.A.-C. Primary Care Provider Encounter Details Date Type Department Care Team (Late st Contact Info) Description 01/14/2012 Historical Ophthalmology [facility] Aries Bacon M.D., M.S. [address] [place] [phone] Social History Tobacco Use Types Packs/Day Years Used Date Smoking Tobacco: Never Assessed Sex and Gender Information Value Date Recorded Sex Assigned at Female 03/31/2018 8:18 PM IN STORE REPRESENTATIVE Gender Identity Female 03/31/2018 8:18 PM IN STORE REPRESENTATIVE Sexual Orientation Straight 03/31/2018 8: 18 PM IN STORE REPRESENTATIVE documented as of this encounter Progress [...] right eye CDM Reports - EYEGEN Id: [id number] Status: Fnl documented in this encounter Plan of Treatment Upcoming Encounters Date Type Department Care Team (Late st Contact Info) Description 11/25/2023 11:00 AM CDT Office Visit Department of Ophthalmology in [place], [place] [address] [place] [phone] Estevan Robledo M.D. [address] [place] [phone] documented as of this encounter Visit Diagnoses Not on filedocumented in this encounter Care Teams Wire Temperer Relationship Specialty Start Date End Date Davide Connelly P.A.-C. PCP - General Family Medicine 07/11/17 documented as of this encounter
--- OUTSIDE RECORDS SUMMARY | 2023-11-23 06:53 | XMS_ITS | Encounter Summary ---
Author Organization [facility] Address [address] [place] [address] Care Team Providers Care Line Servicer Name Role Phone Davide Connelly P.A.-C. Primary Care Provider Encounter Details Date Type Department Care Team (Late st Contact Info) Description 10/03/2010 Historical Ophthalmology [facility] Aries Bacon M.D., M.S. [address] [place] [phone] Social History Tobacco Use Types Packs/Day Years Used Date Smoking Tobacco: Never Assessed Sex and Gender Information Value Date Recorded Sex Assigned at Female 03/31/2018 8:18 PM SOFTWARE BUSINESS ANALYST Gender Identity Female 03/31/2018 8:18 PM SOFTWARE BUSINESS ANALYST Sexual Orientation Straight 03/31/2018 8: 18 PM SOFTWARE BUSINESS ANALYST documented as of this encounter Progress [...] right eye CDM Reports - EYEGEN Id: [id number] Status: Fnl documented in this encounter Plan of Treatment Upcoming Encounters Date Type Department Care Team (Late st Contact Info) Description 11/25/2023 11:00 AM CDT Office Visit Department of Ophthalmology in [place], [place] [address] [phone] Estevan Robledo M.D. [address] [place] [phone] documented as of this encounter Visit Diagnoses Not on filedocumented in this encounter Care Teams Line Servicer Relationship Specialty Start Date End Date Davide Connelly P.A.-C. PCP - General Family Medicine 07/11/17 documented as of this encounter
--- OUTSIDE RECORDS SUMMARY | 2023-11-23 06:53 | XMS_ITS | Encounter Summary ---
Author Organization [facility] Address [address] [place] [address] Care Team Providers Care Freezer Machine Operator Name Role Phone Davide Connelly P.A.-C. Primary Care Provider Encounter Details Date Type Department Care Team (Late st Contact Info) Description 10/14/2009 Historical Ophthalmology [facility] Tyler Saavedra M.D. [address] [place] [phone] Social History Tobacco Use Types Packs/Day Years Used Date Smoking Tobacco: Never Assessed Sex and Gender Information Value Date Recorded Sex Assigned at Female 03/31/2018 8:18 PM MINE SURVEYOR Gender Identity Female 03/31/2018 8:18 PM MINE SURVEYOR Sexual Orientation Straight 03/31/2018 8: 18 PM MINE SURVEYOR documented as of this encounter Progress [...] right eye CDM Reports - EYEGEN Id: [id number] Status: Fnl documented in this encounter Plan of Treatment Upcoming Encounters Date Type Department Care Team (Late st Contact Info) Description 11/25/2023 11:00 AM CDT Office Visit Department of Ophthalmology in [place], [place] [address] [phone] Estevan Robledo M.D. [address] [place] [phone] documented as of this encounter Visit Diagnoses Not on filedocumented in this encounter Care Teams Freezer Machine Operator Relationship Specialty Start Date End Date Davide Connelly P.A.-C. PCP - General Family Medicine 07/11/17 documented as of this encounter
--- OUTSIDE RECORDS SUMMARY | 2023-11-23 06:53 | XMS_ITS | Encounter Summary ---
Author Organization [facility] Address [address] [place] [address] Care Team Providers Care Watch Dial Printer Name Role Phone Davide Connelly P.A.-C. Primary Care Provider Encounter Details Date Type Department Care Team (Late st Contact Info) Description 12/20/2016 Historical Ophthalmology [facility] Estevan Robledo M.D. [address] [place] [phone] Social History Tobacco Use Types Packs/Day Years Used Date Smoking Tobacco: Former Sex and Gender Information Value Date Recorded Sex Assigned at Female 03/31/2018 8:18 PM WORKDAY FINANCIALS CONSULTANT Gender Identity Female 03/31/2018 8:18 PM WORKDAY FINANCIALS CONSULTANT Sexual Orientation Straight 03/31/2018 8: 18 PM WORKDAY FINANCIALS CONSULTANT documented as of this encounter Progress Notes [...] patient currently. CDM Reports - EYEGEN Id: [id number] Status: Fnl documented in this encounter Plan of Treatment Upcoming Encounters Date Type Department Care Team (Late st Contact Info) Description 11/25/2023 11:00 AM CDT Office Visit Department of Ophthalmology in [place], [place] [address] [place] [phone] Estevan Robledo M.D. [address], [place] [phone] documented as of this encounter Visit Diagnoses Not on filedocumented in this encounter Additional Health Concerns Assessment Noted Time PHQ-9 Depression Total Score: 2 06/27/19 17 9:59 AM CDT documented as of this encounter Care Teams Watch Dial Printer Relationship Specialty Start Date End Date Davide Connelly P.A.-C. PCP - General Family Medicine 07/11/17 documented as of this encounter
--- OUTSIDE RECORDS SUMMARY | 2023-11-23 06:53 | XMS_ITS | Encounter Summary ---
Author Organization [facility] Address [address] [place] [address] Care Team Providers Care Panama Hat Blocker Name Role Phone Davide Connelly P.A.-C. Primary Care Provider Encounter Details Date Type Department Care Team (Late st Contact Info) Description 01/17/2010 Historical Ophthalmology [facility] Lonnie Colunga M.D. Social History Tobacco Use Types Packs/Day Years Used Date Smoking Tobacco: Never Assessed Sex and Gender Information Value Date Recorded Sex Assigned at Female 03/31/2018 8:18 PM LACING CUTTER Gender Identity Female 03/31/2018 8:18 PM LACING CUTTER Sexual Orientation Straight 03/31/2018 8: 18 PM LACING CUTTER documented as of this encounter Progress [...] right eye CDM Reports - EYEGEN Id: [id number] Status: Fnl documented in this encounter Plan of Treatment Upcoming Encounters Date Type Department Care Team (Late st Contact Info) Description 11/25/2023 11:00 AM CDT Office Visit Department of Ophthalmology in [place], [place] [address] [phone] Estevan Robledo M.D. [address] [place] [phone] documented as of this encounter Visit Diagnoses Not on filedocumented in this encounter Care Teams Panama Hat Blocker Relationship Specialty Start Date End Date Davide Connelly P.A.-C. PCP - General Family Medicine 07/11/17 documented as of this encounter
--- OUTSIDE RECORDS SUMMARY | 2023-11-23 06:53 | XMS_ITS | Encounter Summary ---
Author Organization [facility] Address [address] [place] [address] Care Team Providers Care Shell Shop Supervisor Name Role Phone Davide Connelly P.A.-C. Primary Care Provider Encounter Details Date Type Department Care Team (Late st Contact Info) Description 11/21/2009 Historical Ophthalmology [facility] Lonnie Colunga M.D. Social History Tobacco Use Types Packs/Day Years Used Date Smoking Tobacco: Never Assessed Sex and Gender Information Value Date Recorded Sex Assigned at Female 03/31/2018 8:18 PM CUSTOMER SERVICE SALES CONSULTANT Gender Identity Female 03/31/2018 8:18 PM CUSTOMER SERVICE SALES CONSULTANT Sexual Orientation Straight 03/31/2018 8: 18 PM CUSTOMER SERVICE SALES CONSULTANT documented as of this encounter Progress [...] right eye CDM Reports - EYEGEN Id: [id number] Status: Fnl documented in this encounter Plan of Treatment Upcoming Encounters Date Type Department Care Team (Late st Contact Info) Description 11/25/2023 11:00 AM CDT Office Visit Department of Ophthalmology in [place], [place] [address] [place] [phone] Estevan Robledo M.D. [address], [place] [phone] documented as of this encounter Visit Diagnoses Not on filedocumented in this encounter Care Teams Shell Shop Supervisor Relationship Specialty Start Date End Date Davide Connelly P.A.-C. PCP - General Family Medicine 07/11/17 documented as of this encounter
--- OUTSIDE RECORDS SUMMARY | 2023-11-23 06:53 | XMS_ITS | Encounter Summary ---
Author Organization [facility] Address [address] [place] [address] Care Team Providers Care Wood Casket Maker Name Role Phone Davide Connelly P.A.-C. Primary Care Provider Encounter Details Date Type Department Care Team (Late st Contact Info) Description 10/25/2009 Historical Ophthalmology [facility] Lonnie Colunga M.D. Social History Tobacco Use Types Packs/Day Years Used Date Smoking Tobacco: Never Assessed Sex and Gender Information Value Date Recorded Sex Assigned at Female 03/31/2018 8:18 PM SECURITY MANAGEMENT SPECIALIST Gender Identity Female 03/31/2018 8:18 PM SECURITY MANAGEMENT SPECIALIST Sexual Orientation Straight 03/31/2018 8: 18 PM SECURITY MANAGEMENT SPECIALIST documented as of this encounter Progress [...] right eye CDM Reports - EYEGEN Id: [id number] Status: Fnl documented in this encounter Plan of Treatment Upcoming Encounters Date Type Department Care Team (Late st Contact Info) Description 11/25/2023 11:00 AM CDT Office Visit Department of Ophthalmology in [place], [place] [address] [phone] Estevan Robledo M.D. [address] [phone] documented as of this encounter Visit Diagnoses Not on filedocumented in this encounter Care Teams Wood Casket Maker Relationship Specialty Start Date End Date Davide Connelly P.A.-C. PCP - General Family Medicine 07/11/17 documented as of this encounter
--- OUTSIDE RECORDS SUMMARY | 2023-11-23 06:53 | XMS_ITS | Encounter Summary ---
Author Organization [facility] Address [address] [place] [address] Care Team Providers Care Home Delivery Driver Name Role Phone Davide Connelly P.A.-C. Primary Care Provider Encounter Details Date Type Department Care Team (Late st Contact Info) Description 09/02/2009 Historical Ophthalmology [facility] Aries Bacon M.D., M.S. [address] [place] [phone] Social History Tobacco Use Types Packs/Day Years Used Date Smoking Tobacco: Never Assessed Sex and Gender Information Value Date Recorded Sex Assigned at Female 03/31/2018 8:18 PM TECHNOLOGY COORDINATOR Gender Identity Female 03/31/2018 8:18 PM TECHNOLOGY COORDINATOR Sexual Orientation Straight 03/31/2018 8: 18 PM TECHNOLOGY COORDINATOR documented as of this encounter Progress [...] right eye CDM Reports - EYEGEN Id: [id number] Status: Fnl documented in this encounter Plan of Treatment Upcoming Encounters Date Type Department Care Team (Late st Contact Info) Description 11/25/2023 11:00 AM CDT Office Visit Department of Ophthalmology in [place], [place] [address] [place] [phone] Estevan Robledo M.D. [address], [place] [phone] documented as of this encounter Visit Diagnoses Not on filedocumented in this encounter Care Teams Home Delivery Driver Relationship Specialty Start Date End Date Davide Connelly P.A.-C. PCP - General Family Medicine 07/11/17 documented as of this encounter
--- OUTSIDE RECORDS SUMMARY | 2023-11-23 06:53 | XMS_ITS | Encounter Summary ---
Author Organization [facility] Address [address] [place] [address] Care Team Providers Care Chemical Radiation Technician Name Role Phone Davide Connelly P.A.-C. Primary Care Provider Encounter Details Date Type Department Care Team (Late st Contact Info) Description 11/15/2016 Historical Ophthalmology [facility] Estevan Robledo M.D. [address] [place] [address] Social History Tobacco Use Types Packs/Day Years Used Date Smoking Tobacco: Former Sex and Gender Information Value Date Recorded Sex Assigned at Female 03/31/2018 8:18 PM CERAMICS TECHNICIAN Gender Identity Female 03/31/2018 8:18 PM CERAMICS TECHNICIAN Sexual Orientation Straight 03/31/2018 8: 18 PM CERAMICS TECHNICIAN documented as of this encounter Progress [...] patient currently. CDM Reports - EYEGEN Id: [id number] Status: Fnl documented in this encounter Plan of Treatment Upcoming Encounters Date Type Department Care Team (Late st Contact Info) Description 11/25/2023 11:00 AM CDT Office Visit Department of Ophthalmology in [place], [place] [address], [place] [address] Estevan Robledo M.D. [address], [place] [phone] documented as of this encounter Visit Diagnoses Not on filedocumented in this encounter Additional Health Concerns Assessment Noted Time PHQ-9 Depression Total Score: 2 06/27/19 17 9:59 AM CDT documented as of this encounter Care Teams Chemical Radiation Technician Relationship Specialty Start Date End Date Davide Connelly P.A.-C. PCP - General Family Medicine 07/11/17 documented as of this encounter
--- OUTSIDE RECORDS SUMMARY | 2023-11-23 06:53 | XMS_ITS | Encounter Summary ---
Author Organization [facility] Address [address] [place] [address] Care Team Providers Care Reception Centre Manager Name Role Phone Davide Connelly P.A.-C. Primary Care Provider Encounter Details Date Type Department Care Team (Late st Contact Info) Description 12/12/2009 Historical Ophthalmology [facility] Lonnie Colunga M.D. Social History Tobacco Use Types Packs/Day Years Used Date Smoking Tobacco: Never Assessed Sex and Gender Information Value Date Recorded Sex Assigned at Female 03/31/2018 8:18 PM WOOD POLISHER Gender Identity Female 03/31/2018 8:18 PM WOOD POLISHER Sexual Orientation Straight 03/31/2018 8: 18 PM WOOD POLISHER documented as of this encounter Progress [...] right eye CDM Reports - EYEGEN Id: [id number] Status: Fnl documented in this encounter Plan of Treatment Upcoming Encounters Date Type Department Care Team (Late st Contact Info) Description 11/25/2023 11:00 AM CDT Office Visit Department of Ophthalmology in [place], [place] [address] [phone] Estevan Robledo M.D. [address] [place] [phone] documented as of this encounter Visit Diagnoses Not on filedocumented in this encounter Care Teams Reception Centre Manager Relationship Specialty Start Date End Date Davide Connelly P.A.-C. PCP - General Family Medicine 07/11/17 documented as of this encounter
--- OUTSIDE RECORDS SUMMARY | 2023-11-23 06:53 | XMS_ITS | Encounter Summary ---
Author Organization [facility] Address [address] [place] [address] Care Team Providers Care Dough Mixer Operator Name Role Phone Davide Connelly P.A.-C. Primary Care Provider Encounter Details Date Type Department Care Team (Late st Contact Info) Description 05/22/2010 Historical Ophthalmology [facility] Lonnie Colunga M.D. Social History Tobacco Use Types Packs/Day Years Used Date Smoking Tobacco: Never Assessed Sex and Gender Information Value Date Recorded Sex Assigned at Female 03/31/2018 8:18 PM FACILITIES OFFICER Gender Identity Female 03/31/2018 8:18 PM FACILITIES OFFICER Sexual Orientation Straight 03/31/2018 8: 18 PM FACILITIES OFFICER documented as of this encounter Progress Notes * Lonnie Colunga M.D. - 05/22/2010 12:34 PM CDT Eye Postoperative MULTI-VISIT DOCUMENT This document contains multiple patient visits and is available for review in Document Viewer. CDM Reports - EYEPO Id: [id number] Status: Fnl documented in this encounter Plan of Treatment Upcoming Encounters Date Type Department Care Team (Late st Contact Info) Description 11/25/2023 11:00 AM CDT Office Visit Department of Ophthalmology in [place], [place] [address] [place] [address] Estevan Robledo M.D. [address], [place] [phone] documented as of this encounter Visit Diagnoses Not on filedocumented in this encounter Care Teams Dough Mixer Operator Relationship Specialty Start Date End Date Davide Connelly P.A.-C. PCP - General Family Medicine 07/11/17 documented as of this encounter
--- OUTSIDE RECORDS SUMMARY | 2023-11-23 06:53 | XMS_ITS | Encounter Summary ---
Author Organization [facility] Address [address] [place] [address] Care Team Providers Care Eligibility Consultant Name Role Phone Davide Connelly P.A.-C. Primary Care Provider Reason for Visit * Reason Comments Med Refill Encounter Details Date Type Department Care Team (Late st Contact Info) Description 08/30/2023 Refill Department of Obstetrics and Gynecology in [address] [phone] Kaila Blackburn, PRENATAL TEACHER, C.N.P. [address], [place] [address] Med Refill Social History Tobacco [...] How often do you attend [facility] or latter day services? More than 4 times per year 01/10/2022 Do you belong to any clubs o r organizations such as congregation groups, unions, fraternal or athletic groups, or [...] Answer Date Recorded PHQ-2 Score 0 01/11/2022 [facility] - Occupational [...] place to sleep or slept in a long term (including now)? No 01/10/2022 Depression Answer Date [...] Sex Assigned at Female 03/31/2018 8:18 PM CHIROPRACTIC PRACTICE MANAGER Gender Identity Female 03/31/2018 8:18 PM CHIROPRACTIC PRACTICE MANAGER Sexual Orientation Straight 03/31/2018 8: 18 PM CHIROPRACTIC PRACTICE MANAGER documented as of this encounter Plan of Treatment Upcoming Encounters Date Type Department Care Team (Late st Contact Info) Description 11/25/2023 11:00 AM CDT Office Visit Department of Ophthalmology in [place], [place] [address], [place] [address] Estevan Robledo M.D. [address] [place] [phone] documented as of this encounter Visit Diagnoses Diagnosis Urinary Urge Incontinence documented in this encounter Additional Health Concerns Assessment Noted Time PHQ-9 Depression Total Score: 5 07/30/19 21 9:46 AM CDT documented as of this encounter Care Teams Eligibility Consultant Relationship Specialty Start Date End Date Davide Connelly P.A.-C. PCP - General Family Medicine 07/11/17 documented as of this encounter
--- OUTSIDE RECORDS SUMMARY | 2023-11-23 06:53 | XMS_ITS | Encounter Summary ---
Author Organization [facility] Address [address] [place] [address] Care Team Providers Care Ivory Carver Name Role Phone Davide Connelly P.A.-C. Primary Care Provider Encounter Details Date Type Department Care Team (Late st Contact Info) Description 10/06/2009 Historical Ophthalmology [facility] Aries Bacon M.D., M.S. [address] [place] [phone] Social History Tobacco Use Types Packs/Day Years Used Date Smoking Tobacco: Never Assessed Sex and Gender Information Value Date Recorded Sex Assigned at Female 03/31/2018 8:18 PM BARGE LOADER Gender Identity Female 03/31/2018 8:18 PM BARGE LOADER Sexual Orientation Straight 03/31/2018 8: 18 PM BARGE LOADER documented as of this encounter Progress [...] right eye CDM Reports - EYEGEN Id: [id number] Status: Fnl documented in this encounter Plan of Treatment Upcoming Encounters Date Type Department Care Team (Late st Contact Info) Description 11/25/2023 11:00 AM CDT Office Visit Department of Ophthalmology in [place], [place] [address] [phone] Estevan Robledo M.D. [address] [phone] documented as of this encounter Visit Diagnoses Not on filedocumented in this encounter Care Teams Ivory Carver Relationship Specialty Start Date End Date Davide Connelly P.A.-C. PCP - General Family Medicine 07/11/17 documented as of this encounter
--- OUTSIDE RECORDS SUMMARY | 2023-11-23 06:53 | XMS_ITS | Encounter Summary ---
Author Organization [facility] Address [address] [place] [address] Care Team Providers Care Manager Of Investigations Name Role Phone Davide Connelly P.A.-C. Primary Care Provider Encounter Details Date Type Department Care Team (Late st Contact Info) Description 10/19/2016 Historical Ophthalmology [facility] Estevan Robledo M.D. [address] [place] [phone] Social History Tobacco Use Types Packs/Day Years Used Date Smoking Tobacco: Former Sex and Gender Information Value Date Recorded Sex Assigned at Female 03/31/2018 8:18 PM APPLICATIONS ANALYST Gender Identity Female 03/31/2018 8:18 PM APPLICATIONS ANALYST Sexual Orientation Straight 03/31/2018 8: 18 PM APPLICATIONS ANALYST documented as of this encounter [...] patient currently. CDM Reports - EYEGEN Id: [id number] Status: Fnl documented in this encounter Plan of Treatment Upcoming Encounters Date Type Department Care Team (Late st Contact Info) Description 11/25/2023 11:00 AM CDT Office Visit Department of Ophthalmology in [place], [place] [address] [place] [phone] Estevan Robledo M.D. [address], [place] [phone] documented as of this encounter Visit Diagnoses Not on filedocumented in this encounter Additional Health Concerns Assessment Noted Time PHQ-9 Depression Total Score: 2 06/27/19 17 9:59 AM CDT documented as of this encounter Care Teams Manager Of Investigations Relationship Specialty Start Date End Date Davide Connelly P.A.-C. PCP - General Family Medicine 07/11/17 documented as of this encounter
--- OUTSIDE RECORDS SUMMARY | 2023-11-23 06:53 | XMS_ITS | Encounter Summary ---
Author Organization [facility] Address [address] [place] [address] Care Team Providers Care Hvac Project Engineer Name Role Phone Davide Connelly P.A.-C. Primary Care Provider Encounter Details Date Type Department Care Team (Late st Contact Info) Description 04/19/2010 Historical Ophthalmology [facility] Lonnie Colunga M.D. Social History Tobacco Use Types Packs/Day Years Used Date Smoking Tobacco: Never Assessed Sex and Gender Information Value Date Recorded Sex Assigned at Female 03/31/2018 8:18 PM TRANSPORTATION AGENT Gender Identity Female 03/31/2018 8:18 PM TRANSPORTATION AGENT Sexual Orientation Straight 03/31/2018 8: 18 PM TRANSPORTATION AGENT documented as of this encounter Progress [...] membrane dystrophy CDM Reports - EYEGEN Id: [id number] Status: Fnl documented in this encounter Plan of Treatment Upcoming Encounters Date Type Department Care Team (Late st Contact Info) Description 11/25/2023 11:00 AM CDT Office Visit Department of Ophthalmology in [place], [place] [address], [place] [address] Estevan Robledo M.D. [address] [place] [phone] documented as of this encounter Visit Diagnoses Not on filedocumented in this encounter Care Teams Hvac Project Engineer Relationship Specialty Start Date End Date Davide Connelly P.A.-C. PCP - General Family Medicine 07/11/17 documented as of this encounter
--- OUTSIDE RECORDS SUMMARY | 2023-11-23 06:53 | XMS_ITS | Encounter Summary ---
Author Organization [facility] Address [address] [place] [address] Care Team Providers Care Drop Hammer Set Up Operator Name Role Phone Davide Connelly P.A.-C. Primary Care Provider Encounter Details Date Type Department Care Team (Late Contact Info) Description 04/19/2010 Historical Ophthalmology [facility] Nicole Berman, C.O.A. Social History Tobacco Use Types Packs/Day Years Used Date Smoking Tobacco: Never Assessed Sex and Gender Information Value Date Recorded Sex Assigned at Female 03/31/2018 8:18 PM MERCHANDISE COMPLAINT ADJUSTER Gender Identity Female 03/31/2018 8:18 PM MERCHANDISE COMPLAINT ADJUSTER Sexual Orientation Straight 03/31/2018 8: 18 PM MERCHANDISE COMPLAINT ADJUSTER documented as of this encounter Progress Notes * Nicole Berman, C.O.A. - 04/19/2010 9:13 AM CST Eye Subsequent Visit HISTORY OF PRESENT ILLNESS Preop checklist: preop instructions given, glasses read, informed consent documented in Informed Consent (IC) section. CDM Reports - EYESV Id: [id number] Status: Fnl documented in this encounter Plan of Treatment Upcoming Encounters Date Type Department Care Team (Late Contact Info) Description 11/25/2023 11:00 AM CDT Office Visit Department of Ophthalmology in [place], [place] [address] [place] [phone] Estevan Robledo M.D. [address] [place] [phone] documented as of this encounter Visit Diagnoses Not on filedocumented in this encounter Care Teams Drop Hammer Set Up Operator Relationship Specialty Start Date End Date Davide Connelly P.A.-C. PCP - General Family Medicine 07/11/17 documented as of this encounter
--- OUTSIDE RECORDS SUMMARY | 2023-11-23 06:53 | XMS_ITS | Encounter Summary ---
Author Organization [facility] Address [address] [place] [address] Care Team Providers Care Glass Blower Name Role Phone Davide Connelly P.A.-C. Primary Care Provider Encounter Details Date Type Department Care Team (Late st Contact Info) Description 01/30/2010 Historical Ophthalmology [facility] Aries Bacon M.D., M.S. [address] [place] [phone] Social History Tobacco Use Types Packs/Day Years Used Date Smoking Tobacco: Never Assessed Sex and Gender Information Value Date Recorded Sex Assigned at Female 03/31/2018 8:18 PM DIVISION ORDER TECHNICIAN Gender Identity Female 03/31/2018 8:18 PM DIVISION ORDER TECHNICIAN Sexual Orientation Straight 03/31/2018 8: 18 PM DIVISION ORDER TECHNICIAN documented as of this encounter Progress [...] right eye CDM Reports - EYEGEN Id: [id number] Status: Fnl documented in this encounter Plan of Treatment Upcoming Encounters Date Type Department Care Team (Late st Contact Info) Description 11/25/2023 11:00 AM CDT Office Visit Department of Ophthalmology in [place], [place] [address] [phone] Estevan Robledo M.D. [address] [phone] documented as of this encounter Visit Diagnoses Not on filedocumented in this encounter Care Teams Glass Blower Relationship Specialty Start Date End Date Davide Connelly P.A.-C. PCP - General Family Medicine 07/11/17 documented as of this encounter
--- OUTSIDE RECORDS SUMMARY | 2023-11-23 06:53 | XMS_ITS | Encounter Summary ---
Author Organization [facility] Address [address] [place] [address] Care Team Providers Care Reprint Sorter Name Role Phone Davide Connelly P.A.-C. Primary Care Provider Encounter Details Date Type Department Care Team (Late st Contact Info) Description 10/19/2009 Historical Ophthalmology [facility] Lonnie Colunga M.D. Social History Tobacco Use Types Packs/Day Years Used Date Smoking Tobacco: Never Assessed Sex and Gender Information Value Date Recorded Sex Assigned at Female 03/31/2018 8:18 PM TAX ASSOCIATE Gender Identity Female 03/31/2018 8:18 PM TAX ASSOCIATE Sexual Orientation Straight 03/31/2018 8: 18 PM TAX ASSOCIATE documented as of this encounter Progress Notes [...] right eye CDM Reports - EYEGEN Id: [id number] Status: Fnl documented in this encounter Plan of Treatment Upcoming Encounters Date Type Department Care Team (Late st Contact Info) Description 11/25/2023 11:00 AM CDT Office Visit Department of Ophthalmology in [place], [place] [address] [phone] Estevan Robledo M.D. [address] [phone] documented as of this encounter Visit Diagnoses Not on filedocumented in this encounter Care Teams Reprint Sorter Relationship Specialty Start Date End Date Davide Connelly P.A.-C. PCP - General Family Medicine 07/11/17 documented as of this encounter
--- OUTSIDE RECORDS SUMMARY | 2023-11-23 06:54 | XMS_ITS | Encounter Summary ---
Author Organization [facility] Address [address] [place] [address] Care Team Providers Care Croze Cutter Name Role Phone Davide Connelly P.A.-C. Primary Care Provider Encounter Details Date Type Department Care Team (Late st Contact Info) Description 11/20/2005 Historical Ophthalmology [facility] Farzad Blackburn M.D. Social History Tobacco Use Types Packs/Day Years Used Date Smoking Tobacco: Never Assessed Sex and Gender Information Value Date Recorded Sex Assigned at Female 03/31/2018 8:18 PM STUDIO TECHNICIAN VIDEO OPERATOR Gender Identity Female 03/31/2018 8:18 PM STUDIO TECHNICIAN VIDEO OPERATOR Sexual Orientation Straight 03/31/2018 8: 18 PM STUDIO TECHNICIAN VIDEO OPERATOR documented as of this encounter Progress Notes * Farzad Blackburn M.D. - 11/20/2005 12:00 AM CDT Eye General CHIEF COMPLAINT Patient states recheck HISTORY OF PRESENT ILLNESS having lid itiching and allergy since starting azopt IMPRESSION / REPORT / PLAN #1 iridocorneal endothelial syndrome, right eye goal 14 CT 567,819 field 2006: R dble arcs = 1996; [...] right eye CDM Reports - EYEGEN Id: [id number] Status: Fnl documented in this encounter Plan of Treatment Upcoming Encounters Date Type Department Care Team (Late st Contact Info) Description 11/25/2023 11:00 AM CDT Office Visit Department of Ophthalmology in [place], [place] [address], [place] [address] Estevan Robledo M.D. [address], [place] [phone] documented as of this encounter Visit Diagnoses Not on filedocumented in this encounter Care Teams Croze Cutter Relationship Specialty Start Date End Date Davide Connelly P.A.-C. PCP - General Family Medicine 07/11/17 documented as of this encounter
--- OUTSIDE RECORDS SUMMARY | 2023-11-23 06:54 | XMS_ITS | Encounter Summary ---
Author Organization [facility] Address [address] [place] [address] Care Team Providers Care Donor Relations Manager Name Role Phone Davide Connelly P.A.-C. Primary Care Provider Encounter Details Date Type Department Care Team (Late st Contact Info) Description 01/18/2009 Historical Ophthalmology [facility] Aries Bacon M.D., M.S. [address] [place] [phone] Social History Tobacco Use Types Packs/Day Years Used Date Smoking Tobacco: Never Assessed Sex and Gender Information Value Date Recorded Sex Assigned at Female 03/31/2018 8:18 PM GENERAL PRODUCTION MANAGER Gender Identity Female 03/31/2018 8:18 PM GENERAL PRODUCTION MANAGER Sexual Orientation Straight 03/31/2018 8: 18 PM GENERAL PRODUCTION MANAGER documented as of this encounter Progress [...] the procedure with the patient (or legal business office representative and otherspresent during the discussion). The patient understands. All questions answered and consent given. Schedule for Mar 09 Continue current medications #2 pseudophakia, right eye DIAGNOSIS #1 Iridocorneal endothelial syndrome, right eye #2 pseudophakia, right eye CDM Reports - EYEGEN Id: [id number] Status: Fnl documented in this encounter Plan of Treatment Upcoming Encounters Date Type Department Care Team (Late st Contact Info) Description 11/25/2023 11:00 AM CDT Office Visit Department of Ophthalmology in [place], [place] [address] [place] [phone] Estevan Robledo M.D. [address] [place] [phone] documented as of this encounter Visit Diagnoses Not on filedocumented in this encounter Care Teams Donor Relations Manager Relationship Specialty Start Date End Date Davide Connelly P.A.-C. PCP - General Family Medicine 07/11/17 documented as of this encounter
--- OUTSIDE RECORDS SUMMARY | 2023-11-23 06:54 | XMS_ITS | Encounter Summary ---
Author Organization [facility] Address [address] [place] [address] Care Team Providers Care Purchasing Officer Name Role Phone Davide Connelly P.A.-C. Primary Care Provider Encounter Details Date Type Department Care Team (Late st Contact Info) Description 05/27/2002 Historical Ophthalmology [facility] Farzad Blackburn M.D. Social History Tobacco Use Types Packs/Day Years Used Date Smoking Tobacco: Never Assessed Sex and Gender Information Value Date Recorded Sex Assigned at Female 03/31/2018 8:18 PM SOCIAL WORK FACULTY MEMBER Gender Identity Female 03/31/2018 8:18 PM SOCIAL WORK FACULTY MEMBER Sexual Orientation Straight 03/31/2018 8: 18 PM SOCIAL WORK FACULTY MEMBER documented as of this encounter Progress Notes [...] pseudophakia OD CDM Reports - EYEGEN Id: [id number] Status: Fnl documented in this encounter Plan of Treatment Upcoming Encounters Date Type Department Care Team (Late st Contact Info) Description 11/25/2023 11:00 AM CDT Office Visit Department of Ophthalmology in [place], [place] [address] [place] [phone] Estevan Robledo M.D. [address], [place] [phone] documented as of this encounter Visit Diagnoses Not on filedocumented in this encounter Care Teams Purchasing Officer Relationship Specialty Start Date End Date Davide Connelly P.A.-C. PCP - General Family Medicine 07/11/17 documented as of this encounter
--- OUTSIDE RECORDS SUMMARY | 2023-11-23 06:54 | XMS_ITS | Encounter Summary ---
Author Organization [facility] Address [address] [place] [address] Care Team Providers Care Ppa Teacher Name Role Phone Davide Connelly P.A.-C. Primary Care Provider Encounter Details Date Type Department Care Team (Late st Contact Info) Description 07/22/2009 Historical Ophthalmology [facility] Aries Bacon M.D., M.S. [address] [place] [phone] Social History Tobacco Use Types Packs/Day Years Used Date Smoking Tobacco: Never Assessed Sex and Gender Information Value Date Recorded Sex Assigned at Female 03/31/2018 8:18 PM SAFETY NET MAKER Gender Identity Female 03/31/2018 8:18 PM SAFETY NET MAKER Sexual Orientation Straight 03/31/2018 8: 18 PM SAFETY NET MAKER documented as of this encounter Progress [...] months - if IOP higher, consider additional MAINTENANCE TEAM MEMBER Allergy to timolol, trusopt, alphagan P 0.15 and 0.1%, Xalatan, Azopt, carteolol #2 Pseudophakia, right eye Reason for blurred vision unclear. May be due to floaters. Recommend call if vision is particularlyblurred - would be useful to examine at that time. DIAGNOSIS #1 Iridocorneal endothelial syndrome, right eye #2 Pseudophakia, right eye CDM Reports - EYEGEN Id: [id number] Status: Fnl documented in this encounter Plan of Treatment Upcoming Encounters Date Type Department Care Team (Late st Contact Info) Description 11/25/2023 11:00 AM CDT Office Visit Department of Ophthalmology in [place], [place] [address] [phone] Estevan Robledo M.D. [address] [place] [phone] documented as of this encounter Visit Diagnoses Not on filedocumented in this encounter Care Teams Ppa Teacher Relationship Specialty Start Date End Date Davide Connelly P.A.-C. PCP - General Family Medicine 07/11/17 documented as of this encounter
--- OUTSIDE RECORDS SUMMARY | 2023-11-23 06:54 | XMS_ITS | Encounter Summary ---
Author Organization [facility] Address [address] [place] [address] Care Team Providers Care Spar Finisher Name Role Phone Davide Connelly P.A.-C. Primary Care Provider Encounter Details Date Type Department Care Team (Late st Contact Info) Description 07/07/2007 Historical Ophthalmology RST OPH Aries Bacon M.D., M.S. [address] [place] [phone] Social History Tobacco Use Types Packs/Day Years Used Date Smoking Tobacco: Never Assessed Sex and Gender Information Value Date Recorded Sex Assigned at Female 03/31/2018 8:18 PM ACUTE CARE CERTIFIED NURSING ASSISTANT Gender Identity Female 03/31/2018 8:18 PM ACUTE CARE CERTIFIED NURSING ASSISTANT Sexual Orientation Straight 03/31/2018 8: 18 PM ACUTE CARE CERTIFIED NURSING ASSISTANT documented as of this encounter Progress [...] right eye CDM Reports - EYEGEN Id: [id number] Status: Fnl documented in this encounter Plan of Treatment Upcoming Encounters Date Type Department Care Team (Late st Contact Info) Description 11/25/2023 11:00 AM CDT Office Visit Department of Ophthalmology in [place], [place] [address] [phone] Estevan Robledo M.D. [address] [place] [phone] documented as of this encounter Visit Diagnoses Not on filedocumented in this encounter Care Teams Spar Finisher Relationship Specialty Start Date End Date Davide Connelly P.A.-C. PCP - General Family Medicine 07/11/17 documented as of this encounter
--- OUTSIDE RECORDS SUMMARY | 2023-11-23 06:54 | XMS_ITS | Encounter Summary ---
Author Organization [facility] Address [address] [place] [address] Care Team Providers Care Dispatcher Ship Pilot Name Role Phone Davide Connelly P.A.-C. Primary Care Provider Encounter Details Date Type Department Care Team (Late st Contact Info) Description 01/03/2004 Historical Ophthalmology RST OPH Farzad Blackburn M.D. Social History Tobacco Use Types Packs/Day Years Used Date Smoking Tobacco: Never Assessed Sex and Gender Information Value Date Recorded Sex Assigned at Female 03/31/2018 8:18 PM TARGETEER Gender Identity Female 03/31/2018 8:18 PM TARGETEER Sexual Orientation Straight 03/31/2018 8: 18 PM TARGETEER documented as of this encounter Progress Notes [...] pseudophakia OD CDM Reports - EYEGEN Id: [id number] Status: Fnl documented in this encounter Plan of Treatment Upcoming Encounters Date Type Department Care Team (Late st Contact Info) Description 11/25/2023 11:00 AM CDT Office Visit Department of Ophthalmology in [place], [place] [address], [place] [phone] Estevan Robledo M.D. [address], [place] [phone] documented as of this encounter Visit Diagnoses Not on filedocumented in this encounter Care Teams Dispatcher Ship Pilot Relationship Specialty Start Date End Date Davide Connelly P.A.-C. PCP - General Family Medicine 07/11/17 documented as of this encounter
--- OUTSIDE RECORDS SUMMARY | 2023-11-23 06:54 | XMS_ITS | Encounter Summary ---
Author Organization [facility] Address [address] [place] [address] Care Team Providers Care Literature Professor Name Role Phone Davide Connelly P.A.-C. Primary Care Provider Encounter Details Date Type Department Care Team (Late st Contact Info) Description 09/12/2007 Historical Ophthalmology RST OPH Aries Bacon M.D., M.S. [address] [place] [phone] Social History Tobacco Use Types Packs/Day Years Used Date Smoking Tobacco: Never Assessed Sex and Gender Information Value Date Recorded Sex Assigned at Female 03/31/2018 8:18 PM EVP SALES Gender Identity Female 03/31/2018 8:18 PM EVP SALES Sexual Orientation Straight 03/31/2018 8: 18 PM EVP SALES documented as of this encounter Progress Notes [...] right eye CDM Reports - EYEGEN Id: [id number] Status: Fnl documented in this encounter Plan of Treatment Upcoming Encounters Date Type Department Care Team (Late st Contact Info) Description 11/25/2023 11:00 AM CDT Office Visit Department of Ophthalmology in [place], [place] [address] [phone] Estevan Robledo M.D. [address] [place] [phone] documented as of this encounter Visit Diagnoses Not on filedocumented in this encounter Care Teams Literature Professor Relationship Specialty Start Date End Date Davide Connelly P.A.-C. PCP - General Family Medicine 07/11/17 documented as of this encounter
--- OUTSIDE RECORDS SUMMARY | 2023-11-23 06:54 | XMS_ITS | Encounter Summary ---
Author Organization [facility] Address [address] [place] [address] Care Team Providers Care Experimental Box Tester Name Role Phone Davide Connelly P.A.-C. Primary Care Provider Encounter Details Date Type Department Care Team (Late st Contact Info) Description 04/01/2008 Historical Ophthalmology RST OPH Aries Bacon M.D., M.S. [address] [place] [phone] Social History Tobacco Use Types Packs/Day Years Used Date Smoking Tobacco: Never Assessed Sex and Gender Information Value Date Recorded Sex Assigned at Female 03/31/2018 8:18 PM CANDY VENDOR Gender Identity Female 03/31/2018 8:18 PM CANDY VENDOR Sexual Orientation Straight 03/31/2018 8: 18 PM CANDY VENDOR documented as of this encounter Progress Notes [...] months with RUPERTO - if progression, consider HOME OFFICE CLAIM SPECIALIST #2 pseudophakia, right eye DIAGNOSIS #1 Iridocorneal endothelial syndrome, right eye #2 Pseudophakia, right eye CDM Reports - EYEGEN Id: [id number] Status: Fnl documented in this encounter Plan of Treatment Upcoming Encounters Date Type Department Care Team (Late st Contact Info) Description 11/25/2023 11:00 AM CDT Office Visit Department of Ophthalmology in [place], [place] [address] [phone] Estevan Robledo M.D. [address] [phone] documented as of this encounter Visit Diagnoses Not on filedocumented in this encounter Care Teams Experimental Box Tester Relationship Specialty Start Date End Date Davide Connelly P.A.-C. PCP - General Family Medicine 07/11/17 documented as of this encounter
--- OUTSIDE RECORDS SUMMARY | 2023-11-23 06:54 | XMS_ITS | Encounter Summary ---
Author Organization [facility] Address [address] [place] [address] Care Team Providers Care Nail Polish Brush Machine Feeder Name Role Phone Davide Connelly P.A.-C. Primary Care Provider Encounter Details Date Type Department Care Team (Late st Contact Info) Description 07/20/2003 Historical Ophthalmology RST OPH Farzad Blackburn M.D. Social History Tobacco Use Types Packs/Day Years Used Date Smoking Tobacco: Never Assessed Sex and Gender Information Value Date Recorded Sex Assigned at Female 03/31/2018 8:18 PM GARDE MANAGER Gender Identity Female 03/31/2018 8:18 PM GARDE MANAGER Sexual Orientation Straight 03/31/2018 8: 18 PM GARDE MANAGER documented as of this encounter Progress [...] pseudophakia OD CDM Reports - EYEGEN Id: [id number] Status: Fnl documented in this encounter Plan of Treatment Upcoming Encounters Date Type Department Care Team (Late st Contact Info) Description 11/25/2023 11:00 AM CDT Office Visit Department of Ophthalmology in [place], [place] [address] [place] [address] Estevan Robledo M.D. [address] [place] [phone] documented as of this encounter Visit Diagnoses Not on filedocumented in this encounter Care Teams Nail Polish Brush Machine Feeder Relationship Specialty Start Date End Date Davide Connelly P.A.-C. PCP - General Family Medicine 07/11/17 documented as of this encounter
--- OUTSIDE RECORDS SUMMARY | 2023-11-23 06:54 | XMS_ITS | Encounter Summary ---
Author Organization [facility] Address [address] [place] [address] Care Team Providers Care Tour Coordinator Name Role Phone Davide Connelly P.A.-C. Primary Care Provider Encounter Details Date Type Department Care Team (Late st Contact Info) Description 10/21/2006 Historical Ophthalmology RST OPH Aries Bacon M.D., M.S. [address] [place] [phone] Social History Tobacco Use Types Packs/Day Years Used Date Smoking Tobacco: Never Assessed Sex and Gender Information Value Date Recorded Sex Assigned at Female 03/31/2018 8:18 PM TICKET COLLECTOR Gender Identity Female 03/31/2018 8:18 PM TICKET COLLECTOR Sexual Orientation Straight 03/31/2018 8: 18 PM TICKET COLLECTOR documented as of this encounter Progress [...] right eye CDM Reports - EYEGEN Id: [id number] Status: Fnl documented in this encounter Plan of Treatment Upcoming Encounters Date Type Department Care Team (Late st Contact Info) Description 11/25/2023 11:00 AM CDT Office Visit Department of Ophthalmology in [place], [place] [address] [phone] Estevan Robledo M.D. [address] [phone] documented as of this encounter Visit Diagnoses Not on filedocumented in this encounter Care Teams Tour Coordinator Relationship Specialty Start Date End Date Davide Connelly P.A.-C. PCP - General Family Medicine 07/11/17 documented as of this encounter
--- OUTSIDE RECORDS SUMMARY | 2023-11-23 06:54 | XMS_ITS | Encounter Summary ---
Author Organization [facility] Address [address] [place] [address] Care Team Providers Care Tax Revenue Officer Name Role Phone Davide Connelly P.A.-C. Primary Care Provider Encounter Details Date Type Department Care Team (Late st Contact Info) Description 06/26/2002 Historical Ophthalmology RST OPH Farzad Blackburn M.D. Social History Tobacco Use Types Packs/Day Years Used Date Smoking Tobacco: Never Assessed Sex and Gender Information Value Date Recorded Sex Assigned at Female 03/31/2018 8:18 PM SEXUAL ABUSE COUNSELLOR Gender Identity Female 03/31/2018 8:18 PM SEXUAL ABUSE COUNSELLOR Sexual Orientation Straight 03/31/2018 8: 18 PM SEXUAL ABUSE COUNSELLOR documented as of this encounter Progress Notes [...] pseudophakia OD CDM Reports - EYEGEN Id: [id number] Status: Fnl documented in this encounter Plan of Treatment Upcoming Encounters Date Type Department Care Team (Late st Contact Info) Description 11/25/2023 11:00 AM CDT Office Visit Department of Ophthalmology in [place], [place] [address] [address] Estevan Robledo M.D. [address], [place] [address] documented as of this encounter Visit Diagnoses Not on filedocumented in this encounter Care Teams Tax Revenue Officer Relationship Specialty Start Date End Date Davide Connelly P.A.-C. PCP - General Family Medicine 07/11/17 documented as of this encounter
--- OUTSIDE RECORDS SUMMARY | 2023-11-23 06:54 | XMS_ITS | Encounter Summary ---
Author Organization [facility] Address [address] [place] [address] Care Team Providers Care Adjunct Professor Of Law Name Role Phone Davide Connelly P.A.-C. Primary Care Provider Encounter Details Date Type Department Care Team (Late st Contact Info) Description 01/18/2003 Historical Ophthalmology RST OPH Farzad Blackburn M.D. Social History Tobacco Use Types Packs/Day Years Used Date Smoking Tobacco: Never Assessed Sex and Gender Information Value Date Recorded Sex Assigned at Female 03/31/2018 8:18 PM APARTMENT LEASING SPECIALIST Gender Identity Female 03/31/2018 8:18 PM APARTMENT LEASING SPECIALIST Sexual Orientation Straight 03/31/2018 8: 18 PM APARTMENT LEASING SPECIALIST documented as of this encounter Progress [...] pseudophakia OD CDM Reports - EYEGEN Id: [id number] Status: Fnl documented in this encounter Plan of Treatment Upcoming Encounters Date Type Department Care Team (Late st Contact Info) Description 11/25/2023 11:00 AM CDT Office Visit Department of Ophthalmology in [place], [place] [address] [place] [address] Estevan Robledo M.D. [address] [place] [phone] documented as of this encounter Visit Diagnoses Not on filedocumented in this encounter Care Teams Adjunct Professor Of Law Relationship Specialty Start Date End Date Davide Connelly P.A.-C. PCP - General Family Medicine 07/11/17 documented as of this encounter
--- OUTSIDE RECORDS SUMMARY | 2023-11-23 06:54 | XMS_ITS | Encounter Summary ---
Author Organization [facility] Address [address] [place] [address] Care Team Providers Care Stock Fitter Name Role Phone Davide Connelly P.A.-C. Primary Care Provider Encounter Details Date Type Department Care Team (Late st Contact Info) Description 09/26/2004 Historical Ophthalmology RST OPH Farzad Blackburn M.D. Social History Tobacco Use Types Packs/Day Years Used Date Smoking Tobacco: Never Assessed Sex and Gender Information Value Date Recorded Sex Assigned at Female 03/31/2018 8:18 PM SIMULATION TECHNICIAN Gender Identity Female 03/31/2018 8:18 PM SIMULATION TECHNICIAN Sexual Orientation Straight 03/31/2018 8: 18 PM SIMULATION TECHNICIAN documented as of this encounter Progress [...] right eye CDM Reports - EYEGEN Id: [id number] Status: Fnl documented in this encounter Plan of Treatment Upcoming Encounters Date Type Department Care Team (Late st Contact Info) Description 11/25/2023 11:00 AM CDT Office Visit Department of Ophthalmology in [place], [place] [address] [phone] Estevan Robledo M.D. [address] [place] [phone] documented as of this encounter Visit Diagnoses Not on filedocumented in this encounter Care Teams Stock Fitter Relationship Specialty Start Date End Date Davide Connelly P.A.-C. PCP - General Family Medicine 07/11/17 documented as of this encounter
--- OUTSIDE RECORDS SUMMARY | 2023-11-23 06:54 | XMS_ITS | Encounter Summary ---
Author Organization [facility] Address [address] [place] [address] Care Team Providers Care Plumbing And Heating Contractor Name Role Phone Davide Connelly P.A.-C. Primary Care Provider Encounter Details Date Type Department Care Team (Late st Contact Info) Description 04/23/2006 Historical Ophthalmology RST OPH Farzad Blackburn M.D. Social History Tobacco Use Types Packs/Day Years Used Date Smoking Tobacco: Never Assessed Sex and Gender Information Value Date Recorded Sex Assigned at Female 03/31/2018 8:18 PM HUNTING SALES LEADER Gender Identity Female 03/31/2018 8:18 PM HUNTING SALES LEADER Sexual Orientation Straight 03/31/2018 8: 18 PM HUNTING SALES LEADER documented as of this encounter Progress [...] right eye CDM Reports - EYEGEN Id: [id number] Status: Fnl documented in this encounter Plan of Treatment Upcoming Encounters Date Type Department Care Team (Late st Contact Info) Description 11/25/2023 11:00 AM CDT Office Visit Department of Ophthalmology in [place], [place] [address] [phone] Estevan Robledo M.D. [address], [place] [phone] documented as of this encounter Visit Diagnoses Not on filedocumented in this encounter Care Teams Plumbing And Heating Contractor Relationship Specialty Start Date End Date Davide Connelly P.A.-C. PCP - General Family Medicine 07/11/17 documented as of this encounter
--- OUTSIDE RECORDS SUMMARY | 2023-11-23 06:54 | XMS_ITS | Encounter Summary ---
Author Organization [facility] Address [address] [place] [address] Care Team Providers Care Clinical Phlebotomist Name Role Phone Davide Connelly P.A.-C. Primary Care Provider Encounter Details Date Type Department Care Team (Late st Contact Info) Description 05/15/2007 Historical Ophthalmology RST OPH Aries Bacon M.D., M.S. [address] [place] [phone] Social History Tobacco Use Types Packs/Day Years Used Date Smoking Tobacco: Never Assessed Sex and Gender Information Value Date Recorded Sex Assigned at Female 03/31/2018 8:18 PM CERAMICS ENGINEER Gender Identity Female 03/31/2018 8:18 PM CERAMICS ENGINEER Sexual Orientation Straight 03/31/2018 8: 18 PM CERAMICS ENGINEER documented as of this encounter Progress [...] with vision problems. [facility] problems with the Rx. She then wentto [facility] 2 times in where she stuck with [...] right eye CDM Reports - EYEGEN Id: [id number] Status: Fnl documented in this encounter Plan of Treatment Upcoming Encounters Date Type Department Care Team (Late st Contact Info) Description 11/25/2023 11:00 AM CDT Office Visit Department of Ophthalmology in [place], [place] [address] [place] [phone] Estevan Robledo M.D. [address] [place] [phone] documented as of this encounter Visit Diagnoses Not on filedocumented in this encounter Care Teams Clinical Phlebotomist Relationship Specialty Start Date End Date Davide Connelly P.A.-C. PCP - General Family Medicine 07/11/17 documented as of this encounter
--- OUTSIDE RECORDS SUMMARY | 2023-11-23 06:54 | XMS_ITS | Encounter Summary ---
Author Organization [facility] Address [address] [place] [address] Care Team Providers Care Sweat Band Sewer Name Role Phone Davide Connelly P.A.-C. Primary Care Provider Encounter Details Date Type Department Care Team (Late st Contact Info) Description 10/11/2005 Historical Ophthalmology RST OPH Farzad Blackburn M.D. Social History Tobacco Use Types Packs/Day Years Used Date Smoking Tobacco: Never Assessed Sex and Gender Information Value Date Recorded Sex Assigned at Female 03/31/2018 8:18 PM ESCROW PROCESSOR Gender Identity Female 03/31/2018 8:18 PM ESCROW PROCESSOR Sexual Orientation Straight 03/31/2018 8: 18 PM ESCROW PROCESSOR documented as of this encounter Progress Notes [...] right eye CDM Reports - EYEGEN Id: [id number] Status: Fnl documented in this encounter Plan of Treatment Upcoming Encounters Date Type Department Care Team (Late st Contact Info) Description 11/25/2023 11:00 AM CDT Office Visit Department of Ophthalmology in [place], [place] [address] [place] [phone] Estevan Robledo M.D. [address] [place] [phone] documented as of this encounter Visit Diagnoses Not on filedocumented in this encounter Care Teams Sweat Band Sewer Relationship Specialty Start Date End Date Davide Connelly P.A.-C. PCP - General Family Medicine 07/11/17 documented as of this encounter
--- OUTSIDE RECORDS SUMMARY | 2023-11-23 06:54 | XMS_ITS | Clinical Summary ---
Author Organization [employer] [facility] Address [place], [place] [address] Care Team Providers Care Town Planner Name Role Phone Davide Connelly Primary Care [...] 65+ 10/27/2023 Medical Devices Implanted Type Area Office Workforce Planner Device Identifier Shelf Expiration Date Model / Serial / Lot [id number] - [id number] Implanted:Qty: 1 on 02/05/2019 by Cabrera Rahman Jr., MD at [facility] Left: Eye [employer] 10/25/2021 [id number] / [id number] / Advance Directives Documents on File Type Date Recorded Patient Professor Of Historical Theology Expl anation Healthcare Directive 07/19/2011 12:00 AM A DVANCE DIRECTIVE * Full Code (Latest Code Status on File) Date Activated Date Inactivated Comments 02/05/2019 7:03 AM 02/06/2019 2:33 AM Question Answer Comments Code Status Discussion: Not Discussed * Full Code Date Activated Date Inactivated Comments 01/28/2019 8:11 AM 01/28/2019 12:32 PM Care Teams Town Planner Relationship Specialty Start Date End Date Davide Connelly PA PCP - General 04/21/18
--- OUTSIDE RECORDS SUMMARY | 2023-11-23 06:54 | XMS_ITS | Encounter Summary ---
Author Organization [facility] Address [address] [place] [address] Care Team Providers Care Acid Splicer Name Role Phone Davide Connelly P.A.-C. Primary Care Provider Encounter Details Date Type Department Care Team (Late st Contact Info) Description 06/13/2009 Historical Ophthalmology RST OPH Aries Bacon M.D., M.S. 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 [address] [place] [phone] documented as of this encounter Visit Diagnoses Not on filedocumented in this encounter Care Teams Acid Splicer Relationship Specialty Start Date End Date Davide Connelly P.A.-C. PCP - General Family Medicine 07/11/17 documented as of this encounter
--- OUTSIDE RECORDS SUMMARY | 2023-11-23 06:54 | XMS_ITS | Encounter Summary ---
Author Organization [facility] Address [address] [place] [address] Care Team Providers Care Scale Agent Name Role Phone Davide Connelly P.A.-C. Primary Care Provider Encounter Details Date Type Department Care Team (Late Contact Info) Description 03/22/2009 Historical Ophthalmology RST OPH Aries Bacon M.D., M.S. [address] [place] [phone] Social History Tobacco Use Types Packs/Day Years Used Date Smoking Tobacco: Never Assessed Sex and Gender Information Value Date Recorded Sex Assigned at Female 03/31/2018 8:18 PM MATERIAL HANDLING CREW SUPERVISOR Gender Identity Female 03/31/2018 8:18 PM MATERIAL HANDLING CREW SUPERVISOR Sexual Orientation Straight 03/31/2018 8: 18 PM MATERIAL HANDLING CREW SUPERVISOR documented as of this encounter Progress Notes * Aries Bacon M.D. - 03/22/2009 9:01 AM CST Eye Postoperative MULTI-VISIT DOCUMENT This document contains multiple patient visits and is available for review in Document Viewer. CDM Reports - EYEPO Id: [id number] Status: Fnl documented in this encounter Plan of Treatment Upcoming Encounters Date Type Department Care Team (Late st Contact Info) Description 11/25/2023 11:00 AM CDT Office Visit Department of Ophthalmology in [place], [place] [address] [place] [phone] Estevan Robledo M.D. [address] [place] [phone] documented as of this encounter Visit Diagnoses Not on filedocumented in this encounter Care Teams Scale Agent Relationship Specialty Start Date End Date Davide Connelly P.A.-C. PCP - General Family Medicine 07/11/17 documented as of this encounter
--- OUTSIDE RECORDS SUMMARY | 2023-11-23 06:54 | XMS_ITS | Encounter Summary ---
Author Organization [facility] Address [address] [place] [address] Care Team Providers Care Bearing Ring Assembler Name Role Phone Davide Connelly P.A.-C. Primary Care Provider Encounter Details Date Type Department Care Team (Late st Contact Info) Description 03/08/2009 Historical Ophthalmology RST OPH Camila Flowers M.D. [address] [place] [phone] Social History Tobacco Use Types Packs/Day Years Used Date Smoking Tobacco: Never Assessed Sex and Gender Information Value Date Recorded Sex Assigned at Female 03/31/2018 8:18 PM ASSEMBLY LINE DRIVER Gender Identity Female 03/31/2018 8:18 PM ASSEMBLY LINE DRIVER Sexual Orientation Straight 03/31/2018 8: 18 PM ASSEMBLY LINE DRIVER documented as of this encounter Progress [...] disease. Goal = 14. Multiple drug intolerances. WAREHOUSE MATERIAL HANDLER (cyclophotocoagulation) right eye recommended. Discussed risk vs. benefit CPCright eye including risk bleeding, infection, loss of vision, high IOP, low IOP, anesthesia risk. All questions answered. #2 Pseudophakia right eye #3 cataract left eye DIAGNOSIS #1 ICE with advanced glaucoama #2 Pseudophakia right eye #3 cataract left eye CDM Reports - EYEGEN Id: [id number] Status: Fnl documented in this encounter Plan of Treatment Upcoming Encounters Date Type Department Care Team (Late st Contact Info) Description 11/25/2023 11:00 AM CDT Office Visit Department of Ophthalmology in [place], [place] [address] [phone] Estevan Robledo M.D. [address] [place] [phone] documented as of this encounter Visit Diagnoses Not on filedocumented in this encounter Care Teams Bearing Ring Assembler Relationship Specialty Start Date End Date Davide Connelly P.A.-C. PCP - General Family Medicine 07/11/17 documented as of this encounter
--- OUTSIDE RECORDS SUMMARY | 2023-11-23 06:54 | XMS_ITS | Encounter Summary ---
Author Organization [facility] Address [address] [place] [id number] Care Team Providers Care Java Software Engineer Name Role Phone Davide Connelly P.A.-C. Primary Care Provider Encounter Details Date Type Department Care Team (Late st Contact Info) Description 09/01/2009 Historical Ophthalmology RST OPH Ashlyn Clark C.O.AJonny [address] [place] [phone] Social History Tobacco Use Types Packs/Day Years Used Date Smoking Tobacco: Never Assessed Sex and Gender Information Value Date Recorded Sex Assigned at Female 03/31/2018 8:18 PM DRESS FINISHER Gender Identity Female 03/31/2018 8:18 PM DRESS FINISHER Sexual Orientation Straight 03/31/2018 8: 18 PM DRESS FINISHER documented as of this encounter Progress Notes [...] tomorrow (09/02/09). CDM Reports - EYESV Id: [id number] Status: Fnl documented in this encounter Plan of Treatment Upcoming Encounters Date Type Department Care Team (Late st Contact Info) Description 11/25/2023 11:00 AM CDT Office Visit Department of Ophthalmology in [place], [place] [address] [place] [address] Estevan Robledo M.D. [address] [place] [phone] documented as of this encounter Visit Diagnoses Not on filedocumented in this encounter Care Teams Java Software Engineer Relationship Specialty Start Date End Date Davide Connelly P.A.-C. PCP - General Family Medicine 07/11/17 documented as of this encounter
--- OUTSIDE RECORDS SUMMARY | 2023-11-23 06:54 | XMS_ITS | Encounter Summary ---
Author Organization [facility] Address [address] [place] [address] Care Team Providers Care Mixing Machine Attendant Name Role Phone Davide Connelly P.A.-C. Primary Care Provider Encounter Details Date Type Department Care Team (Late st Contact Info) Description 04/03/2005 Historical Ophthalmology RST OPH Farzad Blackburn M.D. Social History Tobacco Use Types Packs/Day Years Used Date Smoking Tobacco: Never Assessed Sex and Gender Information Value Date Recorded Sex Assigned at Female 03/31/2018 8:18 PM VARNISHING UNIT OPERATOR Gender Identity Female 03/31/2018 8:18 PM VARNISHING UNIT OPERATOR Sexual Orientation Straight 03/31/2018 8: 18 PM VARNISHING UNIT OPERATOR documented as of this encounter Progress [...] right eye CDM Reports - EYEGEN Id: [id number] Status: Fnl documented in this encounter Plan of Treatment Upcoming Encounters Date Type Department Care Team (Late st Contact Info) Description 11/25/2023 11:00 AM CDT Office Visit Department of Ophthalmology in [place], [place] [address], [place] [address] Estevan Robledo M.D. [address] [place] [phone] documented as of this encounter Visit Diagnoses Not on filedocumented in this encounter Care Teams Mixing Machine Attendant Relationship Specialty Start Date End Date Davide Connelly P.A.-C. PCP - General Family Medicine 07/11/17 documented as of this encounter
--- OUTSIDE RECORDS SUMMARY | 2023-11-23 06:54 | XMS_ITS | Encounter Summary ---
Author Organization [facility] Address [address] [place] [address] Care Team Providers Care Director Of Golf Name Role Phone Davide Connelly P.A.-C. Primary Care Provider Encounter Details Date Type Department Care Team (Late st Contact Info) Description 11/10/2007 Historical Ophthalmology RST OPH Aries Bacon M.D., M.S. [address] [place] [phone] Social History Tobacco Use Types Packs/Day Years Used Date Smoking Tobacco: Never Assessed Sex and Gender Information Value Date Recorded Sex Assigned at Female 03/31/2018 8:18 PM JOIST SETTER Gender Identity Female 03/31/2018 8:18 PM JOIST SETTER Sexual Orientation Straight 03/31/2018 8: 18 PM JOIST SETTER documented as of this encounter Progress Notes [...] months with RUPERTO - if progression, consider PRINCIPAL PRODUCT MANAGER #2 pseudophakia, right eye DIAGNOSIS #1 Iridocorneal endothelial syndrome, right eye #2 pseudophakia, right eye CDM Reports - EYEGEN Id: [id number] Status: Fnl documented in this encounter Plan of Treatment Upcoming Encounters Date Type Department Care Team (Late st Contact Info) Description 11/25/2023 11:00 AM CDT Office Visit Department of Ophthalmology in [place], [place] [address] [phone] Estevan Robledo M.D. [address] [phone] documented as of this encounter Visit Diagnoses Not on filedocumented in this encounter Care Teams Director Of Golf Relationship Specialty Start Date End Date Davide Connelly P.A.-C. PCP - General Family Medicine 07/11/17 documented as of this encounter
== END 2023-11-19 08:39 | disposition home or self-care (01) ==
LOC: NFLDREF 11-23 06:50
PROVIDERS: PCP Nurse Practitioner Family; Referring Provider Nurse Practitioner Family; Visit Provider Nurse Practitioner Family
DX: R19.7 Diarrhea, unspecified (principal)
CPT/HCPCS: 87045; 87046; 87177; 87209; 87427; 87493; 87798

== ENCOUNTER 2023-11-21 09:11 | Outpatient (CLI) | payer MEDICARE, BC, SELFPAY ==
--- OUTSIDE RECORDS SUMMARY | 2023-11-21 08:14 | XMS_ITS | Encounter Summary ---
Author Organization [facility] Address [address] [place] [address] Care Team Providers Care Manager Clinic Name Role Phone Davide Connelly P.A.-C. Primary Care Provider Encounter Details Date Type Department Care Team (Late st Contact Info) Description 10/19/2016 Historical Ophthalmology [facility] Estevan Robledo M.D. [address], [place] [phone] Social History Tobacco Use Types Packs/Day Years Used Date Smoking Tobacco: Former Sex and Gender Information Value Date Recorded Sex Assigned at Female 03/31/2018 8:18 PM ETCHER AIRCRAFT Gender Identity Female 03/31/2018 8:18 PM ETCHER AIRCRAFT Sexual Orientation Straight 03/31/2018 8: 18 PM ETCHER AIRCRAFT documented as of this encounter Progress Notes [...] patient currently. CDM Reports - EYEGEN Id: [id number] Status: Fnl documented in this encounter Plan of Treatment Upcoming Encounters Date Type Department Care Team (Late st Contact Info) Description 11/25/2023 11:00 AM CDT Office Visit Department of Ophthalmology in [place], [place] [address] [place] [phone] Estevan Robledo M.D. [address], [place] [phone] documented as of this encounter Visit Diagnoses Not on filedocumented in this encounter Additional Health Concerns Assessment Noted Time PHQ-9 Depression Total Score: 2 06/27/19 17 9:59 AM CDT documented as of this encounter Care Teams Manager Clinic Relationship Specialty Start Date End Date Davide Connelly P.A.-C. PCP - General Family Medicine 07/11/17 documented as of this encounter
--- OUTSIDE RECORDS SUMMARY | 2023-11-21 08:14 | XMS_ITS | Encounter Summary ---
Author Organization [facility] Address [address] [place] [address] Care Team Providers Care Revenue Integrity Analyst Name Role Phone Davide Connelly P.A.-C. Primary Care Provider Encounter Details Date Type Department Care Team (Late st Contact Info) Description 12/12/2009 Historical Ophthalmology RST OPH Lonnie Colunga M.D. Social History Tobacco Use Types Packs/Day Years Used Date Smoking Tobacco: Never Assessed Sex and Gender Information Value Date Recorded Sex Assigned at Female 03/31/2018 8:18 PM TRAUMA DIRECTOR Gender Identity Female 03/31/2018 8:18 PM TRAUMA DIRECTOR Sexual Orientation Straight 03/31/2018 8: 18 PM TRAUMA DIRECTOR documented as of this encounter Progress Notes [...] right eye CDM Reports - EYEGEN Id: [id number] Status: Fnl documented in this encounter Plan of Treatment Upcoming Encounters Date Type Department Care Team (Late st Contact Info) Description 11/25/2023 11:00 AM CDT Office Visit Department of Ophthalmology in [place], [place] [address] [phone] Estevan Robledo M.D. [address] [place] [phone] documented as of this encounter Visit Diagnoses Not on filedocumented in this encounter Care Teams Revenue Integrity Analyst Relationship Specialty Start Date End Date Davide Connelly P.A.-C. PCP - General Family Medicine 07/11/17 documented as of this encounter
--- OUTSIDE RECORDS SUMMARY | 2023-11-21 08:14 | XMS_ITS | Encounter Summary ---
Author Organization [facility] Address [address] [place] [address] Care Team Providers Care Lead Electrician Name Role Phone Davide Connelly P.A.-C. Primary Care Provider Encounter Details Date Type Department Care Team (Late st Contact Info) Description 12/20/2016 Historical Ophthalmology [facility] Estevan Robledo M.D. [address] [place] [phone] Social History Tobacco Use Types Packs/Day Years Used Date Smoking Tobacco: Former Sex and Gender Information Value Date Recorded Sex Assigned at Female 03/31/2018 8:18 PM LARD TUB WASHER Gender Identity Female 03/31/2018 8:18 PM LARD TUB WASHER Sexual Orientation Straight 03/31/2018 8: 18 PM LARD TUB WASHER documented as of this encounter Progress Notes [...] patient currently. CDM Reports - EYEGEN Id: [id number] Status: Fnl documented in this encounter Plan of Treatment Upcoming Encounters Date Type Department Care Team (Late st Contact Info) Description 11/25/2023 11:00 AM CDT Office Visit Department of Ophthalmology in [place], [place] [address] [place] [phone] Estevan Robledo M.D. [address], [place] [phone] documented as of this encounter Visit Diagnoses Not on filedocumented in this encounter Additional Health Concerns Assessment Noted Time PHQ-9 Depression Total Score: 2 06/27/19 17 9:59 AM CDT documented as of this encounter Care Teams Lead Electrician Relationship Specialty Start Date End Date Davide Connelly P.A.-C. PCP - General Family Medicine 07/11/17 documented as of this encounter
--- OUTSIDE RECORDS SUMMARY | 2023-11-21 08:14 | XMS_ITS | Encounter Summary ---
Author Organization [facility] Address [address] [place] [address] Care Team Providers Care Technical Support Coordinator Name Role Phone Davide Connelly P.A.-C. Primary Care Provider Encounter Details Date Type Department Care Team (Late st Contact Info) Description 05/22/2010 Historical Ophthalmology RST OPH Lonnie Colunga M.D. Social History Tobacco Use Types Packs/Day Years Used Date Smoking Tobacco: Never Assessed Sex and Gender Information Value Date Recorded Sex Assigned at Female 03/31/2018 8:18 PM TREASURY DIRECTOR Gender Identity Female 03/31/2018 8:18 PM TREASURY DIRECTOR Sexual Orientation Straight 03/31/2018 8: 18 PM TREASURY DIRECTOR documented as of this encounter Progress Notes * Lonnie Colunga M.D. - 05/22/2010 12:34 PM CDT Eye Postoperative MULTI-VISIT DOCUMENT This document contains multiple patient visits and is available for review in Document Viewer. CDM Reports - EYEPO Id: [id number] Status: Fnl documented in this encounter Plan of Treatment Upcoming Encounters Date Type Department Care Team (Late st Contact Info) Description 11/25/2023 11:00 AM CDT Office Visit Department of Ophthalmology in [place], [place] [address] [place] [address] Estevan Robledo M.D. [address] [place] [phone] documented as of this encounter Visit Diagnoses Not on filedocumented in this encounter Care Teams Technical Support Coordinator Relationship Specialty Start Date End Date Davide Connelly P.A.-C. PCP - General Family Medicine 07/11/17 documented as of this encounter
--- OUTSIDE RECORDS SUMMARY | 2023-11-21 08:14 | XMS_ITS | Encounter Summary ---
Author Organization [facility] Address [address] [place] [address] Care Team Providers Care Pusher Operator Name Role Phone Davide Connelly P.A.-C. Primary Care Provider Reason for Referral * Outpatient (Routine) - Closed Specialty Diagnoses / Procedures Referred By Juvenal camejo Referred To Contact Ophthalmology Estevan Robledo M.D. [address] [place] [phone] [facility] Referral ID Status Reason Start Date Expiration Date Visits Re quested Visits Authorized [id number] Closed 09/06/2023 03/07/2025 1 1 Reason for Visit * Reason Comments Follow-up * Outpatient (Routine) - Closed Specialty Diagnoses / Procedures Referred By Juvenal camejo Referred To Contact Ophthalmology Estevan Robledo M.D. [address], [place] [address] [facility] Region Referral ID Status Reason Start Date Expiration Date Visits Re quested Visits Authorized [id number] Closed 08/09/2023 02/07/2025 1 1 Encounter Details Date Type Department Care Team (Latest Contact Info) Description 09/06/2023 10:00 AM CDT Office Visit Department of Ophthalmology in [place], [place] [address] [phone] Estevan Robledo M.D. [address] [phone] Primary Open-Angle Glaucoma Severe Stage Bilateral (Primary [...] week 01/10/2022 How often do you attend [facility] or islam services? More than 4 times per year 01/10/2022 Do you belong to any clubs o r organizations such as yarsanism groups, unions, fraternal or athletic groups, or [...] Answer Date Recorded PHQ-2 Score 0 01/11/2022 [facility] - Occupational [...] place to sleep or slept in a penitentiary (including now)? No 01/10/2022 Depression Answer Date [...] Sex Assigned at Female 03/31/2018 8:18 PM SAMPLE PREPARATION SUPERVISOR Gender Identity Female 03/31/2018 8:18 PM SAMPLE PREPARATION SUPERVISOR Sexual Orientation Straight 03/31/2018 8: 18 PM SAMPLE PREPARATION SUPERVISOR documented as of this encounter Progress Notes * Estevan Robledo M.D. - 09/06/2023 10:00 AM CDT Juila Saavedra was seen today for Follow-up #1 [...] CDT Office Visit Department of Ophthalmology in [place], [place] [address] [place] [phone] Estevan Robledo M.D. [address], [place] [address] Scheduled Referrals Name Type Priority [...] documented as of this encounter Care Teams Pusher Operator Relationship Specialty Start Date End Date Davide Connelly P.A.-C. PCP - General Family Medicine 07/11/17 documented as of this encounter
--- OUTSIDE RECORDS SUMMARY | 2023-11-21 08:14 | XMS_ITS | Encounter Summary ---
Author Organization [facility] Address [address] [place] [address] Care Team Providers Care Manager Of Corporate Communications Name Role Phone Davide Connelly P.A.-C. Primary Care Provider Encounter Details Date Type Department Care Team (Late st Contact Info) Description 10/03/2010 Historical Ophthalmology RST OPH Aries Bacon M.D., M.S. [address] [place] [phone] Social History Tobacco Use Types Packs/Day Years Used Date Smoking Tobacco: Never Assessed Sex and Gender Information Value Date Recorded Sex Assigned at Female 03/31/2018 8:18 PM MANAGER CONFIGURATION Gender Identity Female 03/31/2018 8:18 PM MANAGER CONFIGURATION Sexual Orientation Straight 03/31/2018 8: 18 PM MANAGER CONFIGURATION documented as of this encounter Progress Notes [...] right eye CDM Reports - EYEGEN Id: [id number] Status: Fnl documented in this encounter Plan of Treatment Upcoming Encounters Date Type Department Care Team (Late st Contact Info) Description 11/25/2023 11:00 AM CDT Office Visit Department of Ophthalmology in [place], [place] [address] [phone] Estevan Robledo M.D. [address] [place] [phone] documented as of this encounter Visit Diagnoses Not on filedocumented in this encounter Care Teams Manager Of Corporate Communications Relationship Specialty Start Date End Date Davide Connelly P.A.-C. PCP - General Family Medicine 07/11/17 documented as of this encounter
--- OUTSIDE RECORDS SUMMARY | 2023-11-21 08:14 | XMS_ITS | Encounter Summary ---
Author Organization [facility] Address [address] [place] [address] Care Team Providers Care Hemstitcher Name Role Phone Davide Connelly P.A.-C. Primary Care Provider Encounter Details Date Type Department Care Team (Late Contact Info) Description 04/19/2010 Historical Ophthalmology RST OPH Nicole Berman, C.O.A. Social History Tobacco Use Types Packs/Day Years Used Date Smoking Tobacco: Never Assessed Sex and Gender Information Value Date Recorded Sex Assigned at Female 03/31/2018 8:18 PM DELPHI PROGRAMMER Gender Identity Female 03/31/2018 8:18 PM DELPHI PROGRAMMER Sexual Orientation Straight 03/31/2018 8: 18 PM DELPHI PROGRAMMER documented as of this encounter Progress Notes * Nicole Berman, C.O.A. - 04/19/2010 9:13 AM CST Eye Subsequent Visit HISTORY OF PRESENT ILLNESS Preop checklist: preop instructions given, glasses read, informed consent documented in Informed Consent (IC) section. CDM Reports - EYESV Id: [id number] Status: Fnl documented in this encounter Plan of Treatment Upcoming Encounters Date Type Department Care Team (Late Contact Info) Description 11/25/2023 11:00 AM CDT Office Visit Department of Ophthalmology in [place], [place] [address] [place] [phone] Estevan Robledo M.D. [address] [place] [phone] documented as of this encounter Visit Diagnoses Not on filedocumented in this encounter Care Teams Hemstitcher Relationship Specialty Start Date End Date Davide Connelly P.A.-C. PCP - General Family Medicine 07/11/17 documented as of this encounter
--- OUTSIDE RECORDS SUMMARY | 2023-11-21 08:14 | XMS_ITS ---
Author Organization [facility] Address [address] [place] [address] Care Team Providers Care Gem Cutter Name Role Phone Unavailable Unavailable Unavailable Surgery Details Not on file Complications Check Surgery Details section. Procedure Estimated Blood Loss Check Surgery Details section. Procedure Findings Check Surgery Details section. Procedure Specimens Taken Check Surgery Details section.
--- OUTSIDE RECORDS SUMMARY | 2023-11-21 08:14 | XMS_ITS | Encounter Summary ---
Author Organization [facility] Address [address] [place] [address] Care Team Providers Care Tallow Refiner Name Role Phone Davide Connelly P.A.-C. Primary Care Provider Encounter Details Date Type Department Care Team (Late st Contact Info) Description 01/14/2012 Historical Ophthalmology RST OPH Aries Bacon M.D., M.S. [address] [place] [phone] Social History Tobacco Use Types Packs/Day Years Used Date Smoking Tobacco: Never Assessed Sex and Gender Information Value Date Recorded Sex Assigned at Female 03/31/2018 8:18 PM SHEET METAL PRODUCTION WORKER Gender Identity Female 03/31/2018 8:18 PM SHEET METAL PRODUCTION WORKER Sexual Orientation Straight 03/31/2018 8: 18 PM SHEET METAL PRODUCTION WORKER documented as of this encounter Progress [...] right eye CDM Reports - EYEGEN Id: [id number] Status: Fnl documented in this encounter Plan of Treatment Upcoming Encounters Date Type Department Care Team (Late st Contact Info) Description 11/25/2023 11:00 AM CDT Office Visit Department of Ophthalmology in [place], [place] [address] [place] [phone] Estevan Robledo M.D. [address] [place] [phone] documented as of this encounter Visit Diagnoses Not on filedocumented in this encounter Care Teams Tallow Refiner Relationship Specialty Start Date End Date Davide Connelly P.A.-C. PCP - General Family Medicine 07/11/17 documented as of this encounter
--- OUTSIDE RECORDS SUMMARY | 2023-11-21 08:14 | XMS_ITS | Clinical Summary ---
Author Organization [facility] Address [address] [place] [address] Care Team Providers Care Hospice Home Health Aide Name Role Phone Davide Connelly P.A.-C. Primary Care Provider Source Comments Patient records contain information from all sites at [facility]. For routine questions regarding patient records, call [phone] during business hours, M-F 8:00 AM - 5:00 PM Central Time. Record requests for emergency care only can be directed to [phone] at any time.[facility] Allergies Active Allergy Reactions Criticality Noted Date [...] Encounters Date Type Department Care Team Description 10/18/2023 10:00 AM CDT Office Visit Department of Ophthalmology in [place], [place] [address] [place] [phone] Estevan Robledo M.D. Primary Open-Angle Glaucoma Severe Stage Bilateral (Primary Dx); Edema Corneal Secondary Right; Dry Eye Syndrome Right 09/06/2023 10:00 AM CDT Office Visit Department of Ophthalmology in [place], [place] [address] [address] Estevan Robledo M.D. Primary Open-Angle Glaucoma Severe Stage Bilateral (Primary Dx); Edema Corneal Secondary Right 08/30/2023 Refill Department of Obstetrics and Gynecology in [place] [address] [facility] [place] [address] Kaila Blackburn, AGILITY INSTRUCTOR, C.N.P. Med Refill from Last 3 Months Immunizations Name Administration Dates Next Due DT, Pediatric 05/30/2007 HZV (ZOSTAVAX) 03/04/2013 Influenza high dose QV(65 ye ars or older) (PF) 01/24/2023,01/11/2022,12/19/2020 Influenza, Unspecified 12/10/2019,2018,12/30/2017,2016,12/29/2015,12/28/2014,12/29/2013,1 ,12/31/2011,12/21/2010, 010,11/10/2008,12/24/2007,12/16/2006, PCV13 06/21/2014 PPSV23 08/09/2001,04/01/2000 RZV (SHINGRIX) 01/11/2021(Deferred: Patient decision),01/28/2020 SARS-COV-2 (COVID-19) - MODE RNA (12 YEARS AND OLDER) [id number] 01/24/2023 SARS-COV-2 (COVID-19) - PFIZ ER (Discontinued)(12 years or older) 11/18/2020,04/14/2020,03/24/2020 SARS-COV-2 (COVID-19) - PFIZ ER BIVALENT TS(Discontinued)(12 YEARS OR OLDER) 01/11/2022 SARS-COV-2 (COVID-19) - PFIZ ER TS(Discontinued)(12 years or older) 08/21/2021 Td (Adult), adsorbed 02/09/1997 Td, (Adult) Unspecified 05/30/2007 Tdap 06/24/2013 Zoster, Unspecified 01/11/2021(Deferred: Other) influenza trivalent high dos e (HD)(PF) 12/15/2018,12/30/2017 Family History Medical History Relation Name [...] often do you attend chur ch or judaism services? More than 4 times per year 01/10/2022 Do you belong to any clubs o r organizations such as jain groups, unions, fraternal or athletic groups, or [...] Answer Date Recorded PHQ-2 Score 0 01/11/2022 [facility] - Occupational Stress Questionnaire Answer [...] place to sleep or slept in a assisted (including now)? No 01/10/2022 Depression Answer Date [...] Sex Assigned at Female 03/31/2018 8:18 PM PLATING TANK OPERATOR APPRENTICE Gender Identity Female 03/31/2018 8:18 PM PLATING TANK OPERATOR APPRENTICE Sexual Orientation Straight 03/31/2018 8: 18 PM PLATING TANK OPERATOR APPRENTICE Last Filed Vital Signs Vital Sign Reading Time Taken Comments Blood Pressure 116/64 01/24/2023 11:06 AM PLATING TANK OPERATOR APPRENTICE Pulse 56 01/24/2023 10:51 AM PLATING TANK OPERATOR APPRENTICE Temperature 36 ??C (96.8 ??F) 01/24/2023 10:46 AM PLATING TANK OPERATOR APPRENTICE Respiratory Rate 20 01/24/2023 10:46 AM PLATING TANK OPERATOR APPRENTICE Oxygen Saturation 100% 07/29/2020 9:54 AM CDT Inhaled Oxygen Concentration - - Weight 53.7 kg (118 lb 4.4 oz) 01/24/2023 10:46 AM PLATING TANK OPERATOR APPRENTICE Height 163 cm (5' 4.17) 01/24/2023 10:46 AM PLATING TANK OPERATOR APPRENTICE Body Mass Index 20.19 01/24/2023 10:46 AM PLATING TANK OPERATOR APPRENTICE Plan of Treatment Upcoming Encounters Date Type Department Care Team (Late st Contact Info) Description 11/25/2023 11:00 AM CDT Office Visit Department of Ophthalmology in [place], [place] [address] [phone] Estevan Robledo M.D. [address] [phone] Health Maintenance Due Date Last Done Comments RSV vaccine - (32-3 6 weeks) or 60+ years (1 - 1-dose 75+ series) 02/01/2011 Visit: Medicare Annual Wellness 01/12/2023 Depression Screening (Annual PHQ-2) 02/25/2023 Fall Risk Screen (Annual) 02/25/2023 COVID-19 Vaccine (7 - 2023-2 5 season) 2023 01/24/2023, 01/11/2022, 08/21/2021, Additional history exists Influenza Vaccine (#1) 2023 3, 01/11/2022, 12/19/2020, Additional history exists Creatinine Level (Kidney Fun ction Test) 01/24/2024 01/23/2023, 01/11/2022, 01/08/2022, Additional history exists Potassium Level 01/24/2024 01/23/2023, 12/26, 01/08/2022, Additional history exists Sodium Level 01/24/2024 01/23/2023, 12/26, 01/08/2022, Additional history exists Visit: Chronic Disease, age 18+ 01/25/2024 DTaP,Tdap,and Td Vaccines (5 - Td or Tdap) 09/23/2033 09/24/2023, 06/24/2013, 05/30/2007, Additional history exists Pneumococcal vaccine (65+ years) Completed 06/21/2014, 08/09/2001, 04/01/2000 Zoster Vaccines Completed 01/11/2021, 04/2019, 03/04/2013 Medical Devices Implanted Type Area Fur Repairer Device Identifier Shelf Expiration Date Model / Serial / Lot Sclera Tissue Shell 1 2 - Flores Implanted:Qty: 1 on 07/18/1999 Ocular (Eye) Implant [facility] Medical Description:Device Manufactu [facility] [employer] [facility]. Device Status Text - [id number]. Procedures Procedure Name Priority Date/Time Associated Diagnosis Comments COMPREHENSIVE METABOLIC PANEL, S/P Routine 01/23/2023 9:15 AM PLATING TANK OPERATOR APPRENTICE Hypertension Essential Primary from Last 3 Months or Most Recently Relevant to Health Maintenance Results * Comprehensive Metabolic Panel (01/23/2023 9:15 AM PLATING TANK OPERATOR APPRENTICE) Potassium, P 4.7 3.6 - 5.2 mmol/L 01/23/2023 11:56 AM PLATING TANK OPERATOR APPRENTICE OWAT Sodium, P 136 135 - 145 mmol/L 01/23/2023 11:56 AM PLATING TANK OPERATOR APPRENTICE OWAT Chloride, P 100 98 - 107 mmol/L 01/23/2023 11:56 AM PLATING TANK OPERATOR APPRENTICE OWAT Bicarbonate, P 23 22 - 29 mmol/L 01/23/2023 11:56 AM PLATING TANK OPERATOR APPRENTICE OWAT Anion Gap, P 13 7 - 15 01/23/2023 11:56 AM PLATING TANK OPERATOR APPRENTICE OWAT BUN (Blood Urea Nitrogen), P 20 6 - 21 mg/dL 01/23/2023 11:56 AM PLATING TANK OPERATOR APPRENTICE OWAT Creatinine 0.84 0.59 - 1.04 mg/dL 01/23/2023 11:56 AM PLATING TANK OPERATOR APPRENTICE OWAT Estimated GFR (eGFR) 68 >=60 mL/min/BS A 01/23/2023 11:56 AM PLATING TANK OPERATOR APPRENTICE OWAT Comment: Estimated GFR calculated using the 2020 CKD_EPI creatinine equation. Calcium, Total, P 9.6 8.8 - 10.2 mg/dL 01/23/2023 11:56 AM PLATING TANK OPERATOR APPRENTICE OWAT Glucose, P 99 70 - 140 mg/dL 01/23/2023 11:56 AM PLATING TANK OPERATOR APPRENTICE OWAT Protein, Total, P 7.0 6.3 - 7.9 g/dL 01/23/2023 11:56 AM PLATING TANK OPERATOR APPRENTICE OWAT Albumin, P 4.4 3.5 - 5.0 g/dL 01/23/2023 11:56 AM PLATING TANK OPERATOR APPRENTICE OWAT Aspartate Aminotransferase (AST), P 20 8 - 43 U/L 01/23/2023 11:56 AM PLATING TANK OPERATOR APPRENTICE OWAT Alkaline Phosphatase, P 85 35 - 104 U/L 01/23/2023 11:56 AM PLATING TANK OPERATOR APPRENTICE OWAT Alanine Aminotransferase (ALT), P 11 7 - 45 U/L 01/23/2023 11:56 AM PLATING TANK OPERATOR APPRENTICE OWAT Bilirubin, Total, P 0.3 0.0 - 1.2 mg/dL 01/23/2023 11:56 AM PLATING TANK OPERATOR APPRENTICE OWAT Blood (Blood, Venous) 01/23/2023 9:15 AM PLATING TANK OPERATOR APPRENTICE 01/23/2023 11:17 AM PLATING TANK OPERATOR APPRENTICE Davide Connelly P.A.-C. LAB BLOOD ADD- ON [facility] [address] [place] [address], [place] OWAT [facility] in [place] [address] [place] [address] from Last 3 Months or Most Recently Relevant to Health Maintenance Advance Directives For more information, please contact: [phone] Documents on File Type Date Recorded Patient Maintenance Trainer Expl anation Advance Directives 03/16/2011 12:00 AM Leg acy document. See document viewer. Care Teams Hospice Home Health Aide Relationship Specialty Start Date End Date Davide Connelly P.A.-C. PCP - General Family Medicine 07/11/17
--- OUTSIDE RECORDS SUMMARY | 2023-11-21 08:14 | XMS_ITS | Encounter Summary ---
Author Organization [facility] Address [address] [place] [address] Care Team Providers Care Rn Concurrent Review Name Role Phone Davide Connelly P.A.-C. Primary Care Provider Reason for Visit * Reason Comments Med Refill Encounter Details Date Type Department Care Team (Late st Contact Info) Description 08/30/2023 Refill Department of Obstetrics and Gynecology in [address] [phone] Kaila Blackburn, SOCIAL WORK SPECIALIST, C.N.P. [address], [place] [address] Med Refill Social History Tobacco [...] 01/10/2022 [facility] attend [facility] or faith services? More than 4 times per year 01/10/2022 Do you belong to any clubs o r organizations such as voodoo groups, unions, fraternal or athletic groups, or [...] Answer Date Recorded PHQ-2 Score 0 01/11/2022 [facility] - Occupational [...] place to sleep or slept in a detention (including now)? No 01/10/2022 Depression Answer Date [...] Sex Assigned at Female 03/31/2018 8:18 PM 4TH GRADE MATH TEACHER Gender Identity Female 03/31/2018 8:18 PM 4TH GRADE MATH TEACHER Sexual Orientation Straight 03/31/2018 8: 18 PM 4TH GRADE MATH TEACHER documented as of this encounter Plan of Treatment Upcoming Encounters Date Type Department Care Team (Late st Contact Info) Description 11/25/2023 11:00 AM CDT Office Visit Department of Ophthalmology in [place], [place] [address], [place] [address] Estevan Robledo M.D. [address] [place] [phone] documented as of this encounter Visit Diagnoses Diagnosis Urinary Urge Incontinence documented in this encounter Additional Health Concerns Assessment Noted Time PHQ-9 Depression Total Score: 5 07/30/19 21 9:46 AM CDT documented as of this encounter Care Teams Rn Concurrent Review Relationship Specialty Start Date End Date Davide Connelly P.A.-C. PCP - General Family Medicine 07/11/17 documented as of this encounter
--- OUTSIDE RECORDS SUMMARY | 2023-11-21 08:14 | XMS_ITS | Encounter Summary ---
Author Organization [facility] Address [address] [place] [address] Care Team Providers Care Master Naval Parachutist Name Role Phone Davide Connelly P.A.-C. Primary Care Provider Encounter Details Date Type Department Care Team (Late st Contact Info) Description 04/19/2010 Historical Ophthalmology RST OPH Lonnie Colunga M.D. Social History Tobacco Use Types Packs/Day Years Used Date Smoking Tobacco: Never Assessed Sex and Gender Information Value Date Recorded Sex Assigned at Female 03/31/2018 8:18 PM GAS STATION OPERATOR Gender Identity Female 03/31/2018 8:18 PM GAS STATION OPERATOR Sexual Orientation Straight 03/31/2018 8: 18 PM GAS STATION OPERATOR documented as of this encounter Progress [...] membrane dystrophy CDM Reports - EYEGEN Id: [id number] Status: Fnl documented in this encounter Plan of Treatment Upcoming Encounters Date Type Department Care Team (Late st Contact Info) Description 11/25/2023 11:00 AM CDT Office Visit Department of Ophthalmology in [place], [place] [address], [place] [address] Estevan Robledo M.D. [address] [place] [phone] documented as of this encounter Visit Diagnoses Not on filedocumented in this encounter Care Teams Master Naval Parachutist Relationship Specialty Start Date End Date Davide Connelly P.A.-C. PCP - General Family Medicine 07/11/17 documented as of this encounter
--- OUTSIDE RECORDS SUMMARY | 2023-11-21 08:14 | XMS_ITS | Encounter Summary ---
Author Organization [facility] Address [address] [place] [address] Care Team Providers Care Senior Validation Engineer Name Role Phone Davide Connelly P.A.-C. Primary Care Provider Encounter Details Date Type Department Care Team (Late st Contact Info) Description 11/15/2016 Historical Ophthalmology [facility] Estevan Robledo M.D. [address] [place] [address] Social History Tobacco Use Types Packs/Day Years Used Date Smoking Tobacco: Former Sex and Gender Information Value Date Recorded Sex Assigned at Female 03/31/2018 8:18 PM FURNACE HAND Gender Identity Female 03/31/2018 8:18 PM FURNACE HAND Sexual Orientation Straight 03/31/2018 8: 18 PM FURNACE HAND documented as of this encounter Progress Notes [...] patient currently. CDM Reports - EYEGEN Id: [id number] Status: Fnl documented in this encounter Plan of Treatment Upcoming Encounters Date Type Department Care Team (Late st Contact Info) Description 11/25/2023 11:00 AM CDT Office Visit Department of Ophthalmology in [place], [place] [address] [address] Estevan Robledo M.D. [address], [place] [phone] documented as of this encounter Visit Diagnoses Not on filedocumented in this encounter Additional Health Concerns Assessment Noted Time PHQ-9 Depression Total Score: 2 06/27/19 17 9:59 AM CDT documented as of this encounter Care Teams Senior Validation Engineer Relationship Specialty Start Date End Date Davide Connelly P.A.-C. PCP - General Family Medicine 07/11/17 documented as of this encounter
--- OUTSIDE RECORDS SUMMARY | 2023-11-21 08:14 | XMS_ITS | Encounter Summary ---
Author Organization [facility] Address [address] [place] [address] Care Team Providers Care Produce Clerk Name Role Phone Davide Connelly P.A.-C. Primary Care Provider Encounter Details Date Type Department Care Team (Late st Contact Info) Description 01/30/2010 Historical Ophthalmology RST OPH Aries Bacon M.D., M.S. [address] [place] [phone] Social History Tobacco Use Types Packs/Day Years Used Date Smoking Tobacco: Never Assessed Sex and Gender Information Value Date Recorded Sex Assigned at Female 03/31/2018 8:18 PM KEYPUNCH OPERATORS SUPERVISOR Gender Identity Female 03/31/2018 8:18 PM KEYPUNCH OPERATORS SUPERVISOR Sexual Orientation Straight 03/31/2018 8: 18 PM KEYPUNCH OPERATORS SUPERVISOR documented as of this encounter Progress [...] right eye CDM Reports - EYEGEN Id: [id number] Status: Fnl documented in this encounter Plan of Treatment Upcoming Encounters Date Type Department Care Team (Late st Contact Info) Description 11/25/2023 11:00 AM CDT Office Visit Department of Ophthalmology in [place], [place] [address] [phone] Estevan Robledo M.D. [address] [phone] documented as of this encounter Visit Diagnoses Not on filedocumented in this encounter Care Teams Produce Clerk Relationship Specialty Start Date End Date Davide Connelly P.A.-C. PCP - General Family Medicine 07/11/17 documented as of this encounter
--- OUTSIDE RECORDS SUMMARY | 2023-11-21 08:14 | XMS_ITS | Encounter Summary ---
Author Organization [facility] Address [address] [place] [address] Care Team Providers Care Home Visit Field Care Manager Name Role Phone Davide Connelly P.A.-C. Primary Care Provider Encounter Details Date Type Department Care Team (Late st Contact Info) Description 01/17/2010 Historical Ophthalmology RST OPH Lonnie Colunga M.D. Social History Tobacco Use Types Packs/Day Years Used Date Smoking Tobacco: Never Assessed Sex and Gender Information Value Date Recorded Sex Assigned at Female 03/31/2018 8:18 PM CHANNEL PROCESS SUPERVISOR Gender Identity Female 03/31/2018 8:18 PM CHANNEL PROCESS SUPERVISOR Sexual Orientation Straight 03/31/2018 8: 18 PM CHANNEL PROCESS SUPERVISOR documented as of this encounter Progress [...] right eye CDM Reports - EYEGEN Id: [id number] Status: Fnl documented in this encounter Plan of Treatment Upcoming Encounters Date Type Department Care Team (Late st Contact Info) Description 11/25/2023 11:00 AM CDT Office Visit Department of Ophthalmology in [place], [place] [address] [phone] Estevan Robledo M.D. [address] [place] [phone] documented as of this encounter Visit Diagnoses Not on filedocumented in this encounter Care Teams Home Visit Field Care Manager Relationship Specialty Start Date End Date Davide Connelly P.A.-C. PCP - General Family Medicine 07/11/17 documented as of this encounter
--- OUTSIDE RECORDS SUMMARY | 2023-11-21 08:14 | XMS_ITS | Encounter Summary ---
Author Organization [facility] Address [address] [place] [address] Care Team Providers Care Cyanide Case Hardener Name Role Phone Davide Connelly P.A.-C. Primary Care Provider Encounter Details Date Type Department Care Team (Late st Contact Info) Description 08/04/2015 Historical Ophthalmology RST OPH Estevan Robledo M.D. [address] [phone] Social History Tobacco Use Types Packs/Day Years Used Date Smoking Tobacco: Never Assessed Sex and Gender Information Value Date Recorded Sex Assigned at Female 03/31/2018 8:18 PM CREATIVE SERVICES COORDINATOR Gender Identity Female 03/31/2018 8:18 PM CREATIVE SERVICES COORDINATOR Sexual Orientation Straight 03/31/2018 8: 18 PM CREATIVE SERVICES COORDINATOR documented as of this encounter Progress [...] upper lid. CDM Reports - EYEGEN Id: [id number] Status: Fnl documented in this encounter Plan of Treatment Upcoming Encounters Date Type Department Care Team (Late st Contact Info) Description 11/25/2023 11:00 AM CDT Office Visit Department of Ophthalmology in [place], [place] [address] [phone] Estevan Robledo M.D. [address] [place] [phone] documented as of this encounter Visit Diagnoses Not on filedocumented in this encounter Additional Health Concerns Assessment Noted Time PHQ-9 Depression Total Score: 1 06/23/19 16 12:15 PM CDT documented as of this encounter Care Teams Cyanide Case Hardener Relationship Specialty Start Date End Date Davide Connelly P.A.-C. PCP - General Family Medicine 07/11/17 documented as of this encounter
--- OUTSIDE RECORDS SUMMARY | 2023-11-21 08:14 | XMS_ITS | Encounter Summary ---
Author Organization [facility] Address [address] [place] [address] Care Team Providers Care Media Consultant Name Role Phone Davide Connelly P.A.-C. Primary Care Provider Reason for Referral * Outpatient (Routine) - Authorized Specialty Diagnoses / Procedures Referred By Juvenal camejo Referred To Contact Ophthalmology Estevan Robledo M.D. [address], [place] [address] [facility] Referral ID Status Reason Start Date Expiration Date V isits Requested Visits Authorized [id number] Authorized 10/18/2023 04/18/2025 1 1 Reason for Visit * Reason Comments Follow-up * Outpatient (Routine) - Closed Specialty Diagnoses / Procedures Referred By Juvenal camejo Referred To Contact Ophthalmology Estevan Robledo M.D. [address], [place] [address] [facility] Region Referral ID Status Reason Start Date Expiration Date Visits Re quested Visits Authorized [id number] Closed 09/06/2023 03/07/2025 1 1 Encounter Details Date Type Department Care Team (Latest Contact Info) Description 10/18/2023 10:00 AM CDT Office Visit Department of Ophthalmology in [place], [place] [address] [place] [phone] Estevan Robledo M.D. [address] [place] [phone] Primary Open-Angle Glaucoma Severe Stage Bilateral (Primary Dx); Edema Corneal Secondary Right; Dry Eye Syndrome Right Social History Tobacco Use Types Packs/Day [...] How often do you attend chur or sikh services? More than 4 times per year 01/10/2022 Do you belong to any clubs o r organizations such as mormon groups, unions, fraternal or athletic groups, or [...] Answer Date Recorded PHQ-2 Score 0 01/11/2022 [facility] - Occupational [...] Sex Assigned at Female 03/31/2018 8:18 PM CREW MANAGER Gender Identity Female 03/31/2018 8:18 PM CREW MANAGER Sexual Orientation Straight 03/31/2018 8: 18 PM CREW MANAGER documented as of this encounter Progress Notes * Estevan Robledo M.D. - 10/18/2023 10:00 AM CDT Julia Saavedra was seen today for Follow-up #1 Primary Open-Angle Glaucoma Severe Stage Bilateral #2 Edema Corneal Secondary Right #3 Dry Eye Syndrome Right Lost bandage contact lens right eye with increased discomfort over past one to two days. Stable intraocular pressure both eyes. Plan: Replace BCL right eye. Maintain current eye meds and RTC five weeks. III documented in this encounter Plan of Treatment Upcoming Encounters Date Type Department Care Team (Late st Contact Info) Description 11/25/2023 11:00 AM CDT Office Visit Department of Ophthalmology in [place], [place] [address] [place] [phone] Estevan Robledo M.D. [address] [place] [phone] Scheduled Referrals Name Type Priority Associated Diagnoses Order Schedule Ophthalmology office visit (clinic) Outpatient Referral Routine Expected: 11/25/2023 (Approximate), Expires: 01/17/2025 documented as of this encounter Visit Diagnoses Diagnosis Primary Open-Angle Glaucoma Severe Stage Bilateral- Primary Edema Corneal Secondary Right Dry Eye Syndrome Right documented in this encounter Additional Health Concerns Assessment Noted Time PHQ-9 Depression Total Score: 5 07/30/19 21 9:46 AM CDT documented as of this encounter Care Teams Media Consultant Relationship Specialty Start Date End Date Davide Connelly P.A.-C. PCP - General Family Medicine 07/11/17 documented as of this encounter
--- OUTSIDE RECORDS SUMMARY | 2023-11-21 08:14 | XMS_ITS | Referral Summary ---
Author Organization [facility] Address [address] [place] [address] Care Team Providers Care Warrant Clerk Name Role Phone Davide Connelly P.A.-C. Primary Care Provider Source Comments Patient records contain information from all sites at [facility]. For routine questions regarding patient records, call [phone] during business hours, M-F 8:00 AM - 5:00 PM Central Time. Record requests for emergency care only can be directed to [phone] at any time.[facility] Encounters Date Type Department Care Team Description 10/18/2023 10:00 AM CDT Office Visit Department of Ophthalmology in [place], [place] [address] [place] [phone] Estevan Robledo M.D. Primary Open-Angle Glaucoma Severe Stage Bilateral (Primary Dx); Edema Corneal Secondary Right; Dry Eye Syndrome Right 09/06/2023 10:00 AM CDT Office Visit Department of Ophthalmology in [place], [place] [address] [phone] Estevan Robledo M.D. Primary Open-Angle Glaucoma Severe Stage Bilateral (Primary Dx); Edema Corneal Secondary Right 08/30/2023 Refill Department of Obstetrics and Gynecology in [address] [phone] Kaila Blackburn APRN, C.N.P. Med Refill from Last 3 Months Allergies Active Allergy [...] - MODE RNA (12 YEARS AND OLDER) [id number] 01/24/2023 SARS-COV-2 (COVID-19) - PFIZ ER (Discontinued)(12 years or older) 11/18/2020,04/14/2020,03/24/2020 SARS-COV-2 (COVID-19) - PFIZ ER BIVALENT TS(Discontinued)(12 YEARS OR OLDER) 01/11/2022 SARS-COV-2 (COVID-19) - PFIZ ER TS(Discontinued)(12 years or older) 08/21/2021 Td (Adult), adsorbed 02/09/1997 Td, (Adult) Unspecified 05/30/2007 Tdap 06/24/2013 Zoster, Unspecified 01/11/2021(Deferred: Other) influenza trivalent high dos e (HD)(PF) 12/15/2018,12/30/2017 Social History Tobacco Use Types Packs/Day [...] How often do you attend chur or protestant services? More than 4 times per year 01/10/2022 Do you belong to any clubs o r organizations such as methodist groups, unions, fraternal or athletic groups, or [...] Answer Date Recorded PHQ-2 Score 0 01/11/2022 [facility] - Occupational Stress Questionnaire Answer Date [...] place to sleep or slept in a nursing home (including now)? No 01/10/2022 Depression Answer Date [...] Sex Assigned at Female 03/31/2018 8:18 PM PROPELLER ENGINEER Gender Identity Female 03/31/2018 8:18 PM PROPELLER ENGINEER Sexual Orientation Straight 03/31/2018 8: 18 PM PROPELLER ENGINEER Last Filed Vital Signs Vital Sign Reading Time Taken Comments Blood Pressure 116/64 01/24/2023 11:06 AM PROPELLER ENGINEER Pulse 56 01/24/2023 10:51 AM PROPELLER ENGINEER Temperature 36 ??C (96.8 ??F) 01/24/2023 10:46 AM PROPELLER ENGINEER Respiratory Rate 20 01/24/2023 10:46 AM PROPELLER ENGINEER Oxygen Saturation 100% 07/29/2020 9:54 AM CDT Inhaled Oxygen Concentration - - Weight 53.7 kg (118 lb 4.4 oz) 01/24/2023 10:46 AM PROPELLER ENGINEER Height 163 cm (5' 4.17) 01/24/2023 10:46 AM PROPELLER ENGINEER Body Mass Index 20.19 01/24/2023 10:46 AM PROPELLER ENGINEER Plan of Treatment Upcoming Encounters Date Type Department Care Team (Late st Contact Info) Description 11/25/2023 11:00 AM CDT Office Visit Department of Ophthalmology in [place], [place] [address] [phone] Estevan Robledo M.D. [address] [place] [phone] Medical Devices Implanted Type Area Social Staff Worker Device Identifier Shelf Expiration Date Model / Serial / Lot Sclera Tissue Shell 1 2 - Flores Implanted:Qty: 1 on 07/18/1999 Ocular (Eye) Implant [employer] Medical Description:Device Manufactu rer - 422 [employer]. Device Status Text - OCULARIMP-. Procedures Procedure Name Priority Date/Time Associated Diagnosis Comments COMPREHENSIVE METABOLIC PANEL, S/P Routine 01/23/2023 9:15 AM PROPELLER ENGINEER Hypertension Essential Primary from Last 3 Months or Most Recently Relevant to Health Maintenance Results * Comprehensive Metabolic Panel (01/23/2023 9:15 AM PROPELLER ENGINEER) Potassium, P 4.7 3.6 - 5.2 mmol/L 01/23/2023 11:56 AM PROPELLER ENGINEER OWAT Sodium, P 136 135 - 145 mmol/L 01/23/2023 11:56 AM PROPELLER ENGINEER OWAT Chloride, P 100 98 - 107 mmol/L 01/23/2023 11:56 AM PROPELLER ENGINEER OWAT Bicarbonate, P 23 22 - 29 mmol/L 01/23/2023 11:56 AM PROPELLER ENGINEER OWAT Anion Gap, P 13 7 - 15 01/23/2023 11:56 AM PROPELLER ENGINEER OWAT BUN (Blood Urea Nitrogen), P 20 6 - 21 mg/dL 01/23/2023 11:56 AM PROPELLER ENGINEER OWAT Creatinine 0.84 0.59 - 1.04 mg/dL 01/23/2023 11:56 AM PROPELLER ENGINEER OWAT Estimated GFR (eGFR) 68 >=60 mL/min/BS A 01/23/2023 11:56 AM PROPELLER ENGINEER OWAT Comment: Estimated GFR calculated using the 2020 CKD_EPI creatinine equation. Calcium, Total, P 9.6 8.8 - 10.2 mg/dL 01/23/2023 11:56 AM PROPELLER ENGINEER OWAT Glucose, P 99 70 - 140 mg/dL 01/23/2023 11:56 AM PROPELLER ENGINEER OWAT Protein, Total, P 7.0 6.3 - 7.9 g/dL 01/23/2023 11:56 AM PROPELLER ENGINEER OWAT Albumin, P 4.4 3.5 - 5.0 g/dL 01/23/2023 11:56 AM PROPELLER ENGINEER OWAT Aspartate Aminotransferase (AST), P 20 8 - 43 U/L 01/23/2023 11:56 AM PROPELLER ENGINEER OWAT Alkaline Phosphatase, P 85 35 - 104 U/L 01/23/2023 11:56 AM PROPELLER ENGINEER OWAT Alanine Aminotransferase (ALT), P 11 7 - 45 U/L 01/23/2023 11:56 AM PROPELLER ENGINEER OWAT Bilirubin, Total, P 0.3 0.0 - 1.2 mg/dL 01/23/2023 11:56 AM PROPELLER ENGINEER OWAT Blood (Blood, Venous) 01/23/2023 9:15 AM PROPELLER ENGINEER 01/23/2023 11:17 AM PROPELLER ENGINEER Davide Connelly P.A.-C. LAB BLOOD ADD- ON [facility] [address] [place] [address], [place] [facility] [facility] [place] [address] [place] [address] from Last 3 Months or Most Recently Relevant to Health Maintenance Advance Directives For more information, please contact: [phone] Documents on File Type Date Recorded Patient Customer Service Security Officer Expl anation Advance Directives 03/16/2011 12:00 AM Leg acy document. See document viewer. Care Teams Warrant Clerk Relationship Specialty Start Date End Date Davide Connelly P.A.-C. PCP - General Family Medicine 07/11/17
--- OUTSIDE RECORDS SUMMARY | 2023-11-21 08:15 | XMS_ITS | Encounter Summary ---
Author Organization [facility] Address [address] [place] [address] Care Team Providers Care It Solutions Sales Consultant Name Role Phone Davide Connelly P.A.-C. Primary Care Provider Encounter Details Date Type Department Care Team (Late st Contact Info) Description 10/14/2009 Historical Ophthalmology RST OPH Tyler Saavedra M.D. [address] [place] [phone] Social History Tobacco Use Types Packs/Day Years Used Date Smoking Tobacco: Never Assessed Sex and Gender Information Value Date Recorded Sex Assigned at Female 03/31/2018 8:18 PM CARPENTER ASSISTANT INSTALLER Gender Identity Female 03/31/2018 8:18 PM CARPENTER ASSISTANT INSTALLER Sexual Orientation Straight 03/31/2018 8: 18 PM CARPENTER ASSISTANT INSTALLER documented as of this encounter Progress Notes [...] right eye CDM Reports - EYEGEN Id: [id number] Status: Fnl documented in this encounter Plan of Treatment Upcoming Encounters Date Type Department Care Team (Late st Contact Info) Description 11/25/2023 11:00 AM CDT Office Visit Department of Ophthalmology in [place], [place] [address] [phone] Estevan Robledo M.D. [address] [place] [phone] documented as of this encounter Visit Diagnoses Not on filedocumented in this encounter Care Teams It Solutions Sales Consultant Relationship Specialty Start Date End Date Davide Connelly P.A.-C. PCP - General Family Medicine 07/11/17 documented as of this encounter
--- OUTSIDE RECORDS SUMMARY | 2023-11-21 08:15 | XMS_ITS | Encounter Summary ---
Author Organization [facility] Address [address] [place] [address] Care Team Providers Care Wage And Hour Investigator Name Role Phone Davide Connelly P.A.-C. Primary Care Provider Encounter Details Date Type Department Care Team (Late st Contact Info) Description 09/26/2004 Historical Ophthalmology RST OPH Farzad Blackburn M.D. Social History Tobacco Use Types Packs/Day Years Used Date Smoking Tobacco: Never Assessed Sex and Gender Information Value Date Recorded Sex Assigned at Female 03/31/2018 8:18 PM ASSISTANT HOUSEKEEPING MANAGER Gender Identity Female 03/31/2018 8:18 PM ASSISTANT HOUSEKEEPING MANAGER Sexual Orientation Straight 03/31/2018 8: 18 PM ASSISTANT HOUSEKEEPING MANAGER documented as of this encounter Progress [...] right eye CDM Reports - EYEGEN Id: [id number] Status: Fnl documented in this encounter Plan of Treatment Upcoming Encounters Date Type Department Care Team (Late st Contact Info) Description 11/25/2023 11:00 AM CDT Office Visit Department of Ophthalmology in [place], [place] [address] [phone] Estevan Robledo M.D. [address] [place] [phone] documented as of this encounter Visit Diagnoses Not on filedocumented in this encounter Care Teams Wage And Hour Investigator Relationship Specialty Start Date End Date Davide Connelly P.A.-C. PCP - General Family Medicine 07/11/17 documented as of this encounter
--- OUTSIDE RECORDS SUMMARY | 2023-11-21 08:15 | XMS_ITS | Encounter Summary ---
Author Organization [facility] Address [address] [place] [address] Care Team Providers Care Manager Creative Services Name Role Phone Davide Connelly P.A.-C. Primary Care Provider Encounter Details Date Type Department Care Team (Late st Contact Info) Description 11/10/2007 Historical Ophthalmology RST OPH Aries Bacon M.D., M.S. [address] [place] [phone] Social History Tobacco Use Types Packs/Day Years Used Date Smoking Tobacco: Never Assessed Sex and Gender Information Value Date Recorded Sex Assigned at Female 03/31/2018 8:18 PM DIE BARBER Gender Identity Female 03/31/2018 8:18 PM DIE BARBER Sexual Orientation Straight 03/31/2018 8: 18 PM DIE BARBER documented as of this encounter Progress Notes [...] months with RUPERTO - if progression, consider BRUSHER WARP #2 pseudophakia, right eye DIAGNOSIS #1 Iridocorneal endothelial syndrome, right eye #2 pseudophakia, right eye CDM Reports - EYEGEN Id: [id number] Status: Fnl documented in this encounter Plan of Treatment Upcoming Encounters Date Type Department Care Team (Late st Contact Info) Description 11/25/2023 11:00 AM CDT Office Visit Department of Ophthalmology in [place], [place] [address] [phone] Estevan Robledo M.D. [address] [phone] documented as of this encounter Visit Diagnoses Not on filedocumented in this encounter Care Teams Manager Creative Services Relationship Specialty Start Date End Date Davide Connelly P.A.-C. PCP - General Family Medicine 07/11/17 documented as of this encounter
--- OUTSIDE RECORDS SUMMARY | 2023-11-21 08:15 | XMS_ITS | Encounter Summary ---
Author Organization [facility] Address [address] [place] [address] Care Team Providers Care Record Searcher Name Role Phone Davide Connelly P.A.-C. Primary Care Provider Encounter Details Date Type Department Care Team (Late st Contact Info) Description 07/22/2009 Historical Ophthalmology RST OPH Aries Bacon M.D., M.S. [address] [place] [phone] Social History Tobacco Use Types Packs/Day Years Used Date Smoking Tobacco: Never Assessed Sex and Gender Information Value Date Recorded Sex Assigned at Female 03/31/2018 8:18 PM REGIONAL MARKETING DIRECTOR Gender Identity Female 03/31/2018 8:18 PM REGIONAL MARKETING DIRECTOR Sexual Orientation Straight 03/31/2018 8: 18 PM REGIONAL MARKETING DIRECTOR documented as of this encounter Progress [...] months - if IOP higher, consider additional COMMUNITY SERVICE WORKER Allergy to timolol, trusopt, alphagan P 0.15 and 0.1%, Xalatan, Azopt, carteolol #2 Pseudophakia, right eye Reason for blurred vision unclear. May be due to floaters. Recommend call if vision is particularlyblurred - would be useful to examine at that time. DIAGNOSIS #1 Iridocorneal endothelial syndrome, right eye #2 Pseudophakia, right eye CDM Reports - EYEGEN Id: [id number] Status: Fnl documented in this encounter Plan of Treatment Upcoming Encounters Date Type Department Care Team (Late st Contact Info) Description 11/25/2023 11:00 AM CDT Office Visit Department of Ophthalmology in [place], [place] [address] [phone] Estevan Robledo M.D. [address] [place] [phone] documented as of this encounter Visit Diagnoses Not on filedocumented in this encounter Care Teams Record Searcher Relationship Specialty Start Date End Date Davide Connelly P.A.-C. PCP - General Family Medicine 07/11/17 documented as of this encounter
--- OUTSIDE RECORDS SUMMARY | 2023-11-21 08:15 | XMS_ITS | Encounter Summary ---
Author Organization [facility] Address [address] [place] [address] Care Team Providers Care Old Coin Dealer Name Role Phone Davide Connelly P.A.-C. Primary Care Provider Encounter Details Date Type Department Care Team (Late Contact Info) Description 03/22/2009 Historical Ophthalmology RST OPH Areis Bacon M.D., M.S. [address] [place] [phone] Social History Tobacco Use Types Packs/Day Years Used Date Smoking Tobacco: Never Assessed Sex and Gender Information Value Date Recorded Sex Assigned at Female 03/31/2018 8:18 PM SEED TESTER Gender Identity Female 03/31/2018 8:18 PM SEED TESTER Sexual Orientation Straight 03/31/2018 8: 18 PM SEED TESTER documented as of this encounter Progress Notes * Aries Bacon M.D. - 03/22/2009 9:01 AM CST Eye Postoperative MULTI-VISIT DOCUMENT This document contains multiple patient visits and is available for review in Document Viewer. CDM Reports - EYEPO Id: [id number] Status: Fnl documented in this encounter Plan of Treatment Upcoming Encounters Date Type Department Care Team (Late st Contact Info) Description 11/25/2023 11:00 AM CDT Office Visit Department of Ophthalmology in [place], [place] [address] [place] [phone] Estevan Robledo M.D. [address] [place] [phone] documented as of this encounter Visit Diagnoses Not on filedocumented in this encounter Care Teams Old Coin Dealer Relationship Specialty Start Date End Date Davide Connelly P.A.-C. PCP - General Family Medicine 07/11/17 documented as of this encounter
--- OUTSIDE RECORDS SUMMARY | 2023-11-21 08:15 | XMS_ITS | Encounter Summary ---
Author Organization [facility] Address [address] [place] [address] Care Team Providers Care Roll Sheeting Cutter Name Role Phone Davide Connelly P.A.-C. Primary Care Provider Encounter Details Date Type Department Care Team (Late st Contact Info) Description 06/13/2009 Historical Ophthalmology RST OPH Aries Bacon M.D., M.S. [address] [place] [phone] Social History Tobacco Use Types Packs/Day Years Used Date Smoking Tobacco: Never Assessed Sex and Gender Information Value Date Recorded Sex Assigned at Female 03/31/2018 8:18 PM RELIEF SALESPERSON Gender Identity Female 03/31/2018 8:18 PM RELIEF SALESPERSON Sexual Orientation Straight 03/31/2018 8: 18 PM RELIEF SALESPERSON documented as of this encounter Progress Notes [...] months - if IOP higher, consider additional MANAGER ENTERPRISE CONTENT MANAGEMENT Allergy to timolol, trusopt, alphagan P 0.15 and 0.1%, Xalatan, Azopt, carteolol #2 Pseudophakia, 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 [address] [place] [phone] documented as of this encounter Visit Diagnoses Not on filedocumented in this encounter Care Teams Roll Sheeting Cutter Relationship Specialty Start Date End Date Davide Connelly P.A.-C. PCP - General Family Medicine 07/11/17 documented as of this encounter
--- OUTSIDE RECORDS SUMMARY | 2023-11-21 08:15 | XMS_ITS | Encounter Summary ---
Author Organization [facility] Address [address] [place] [address] Care Team Providers Care Coremaker Bench Name Role Phone Davide Connelly P.A.-C. Primary Care Provider Encounter Details Date Type Department Care Team (Late st Contact Info) Description 09/01/2009 Historical Ophthalmology RST OPH Ashlyn Clark C.O.AJonny [address] [place] [phone] Social History Tobacco Use Types Packs/Day Years Used Date Smoking Tobacco: Never Assessed Sex and Gender Information Value Date Recorded Sex Assigned at Female 03/31/2018 8:18 PM TOBACCO WRAPPING MACHINE TENDER Gender Identity Female 03/31/2018 8:18 PM TOBACCO WRAPPING MACHINE TENDER Sexual Orientation Straight 03/31/2018 8: 18 PM TOBACCO WRAPPING MACHINE TENDER documented as of this encounter [...] tomorrow (09/02/09). CDM Reports - EYESV Id: [id number] Status: Fnl documented in this encounter Plan of Treatment Upcoming Encounters Date Type Department Care Team (Late st Contact Info) Description 11/25/2023 11:00 AM CDT Office Visit Department of Ophthalmology in [place], [place] [address] [place] [phone] Estevan Robledo M.D. [address] [place] [phone] documented as of this encounter Visit Diagnoses Not on filedocumented in this encounter Care Teams Coremaker Bench Relationship Specialty Start Date End Date Davide Connelly P.A.-C. PCP - General Family Medicine 07/11/17 documented as of this encounter
--- OUTSIDE RECORDS SUMMARY | 2023-11-21 08:15 | XMS_ITS | Encounter Summary ---
Author Organization [facility] Address [address] [place] [address] Care Team Providers Care Senior Living Advisor Name Role Phone Davide Connelly P.A.-C. Primary Care Provider Encounter Details Date Type Department Care Team (Late st Contact Info) Description 07/07/2007 Historical Ophthalmology RST OPH Aries Bacon M.D., M.S. [address] [place] [phone] Social History Tobacco Use Types Packs/Day Years Used Date Smoking Tobacco: Never Assessed Sex and Gender Information Value Date Recorded Sex Assigned at Female 03/31/2018 8:18 PM ASSEMBLING MACHINE OPERATOR Gender Identity Female 03/31/2018 8:18 PM ASSEMBLING MACHINE OPERATOR Sexual Orientation Straight 03/31/2018 8: 18 PM ASSEMBLING MACHINE OPERATOR documented as of this encounter [...] right eye CDM Reports - EYEGEN Id: [id number] Status: Fnl documented in this encounter Plan of Treatment Upcoming Encounters Date Type Department Care Team (Late st Contact Info) Description 11/25/2023 11:00 AM CDT Office Visit Department of Ophthalmology in [place], [place] [address] [phone] Estevan Robledo M.D. [address] [place] [phone] documented as of this encounter Visit Diagnoses Not on filedocumented in this encounter Care Teams Senior Living Advisor Relationship Specialty Start Date End Date Davide Connelly P.A.-C. PCP - General Family Medicine 07/11/17 documented as of this encounter
--- OUTSIDE RECORDS SUMMARY | 2023-11-21 08:15 | XMS_ITS | Encounter Summary ---
Author Organization [facility] Address [address] [place] [address] Care Team Providers Care Site Lead Name Role Phone Davide Connelly P.A.-C. Primary Care Provider Encounter Details Date Type Department Care Team (Late st Contact Info) Description 03/08/2009 Historical Ophthalmology RST OPH Camila Flowers M.D. [address] [place] [phone] Social History Tobacco Use Types Packs/Day Years Used Date Smoking Tobacco: Never Assessed Sex and Gender Information Value Date Recorded Sex Assigned at Female 03/31/2018 8:18 PM CAGE UNLOADER Gender Identity Female 03/31/2018 8:18 PM CAGE UNLOADER Sexual Orientation Straight 03/31/2018 8: 18 PM CAGE UNLOADER documented as of this encounter Progress Notes [...] disease. Goal = 14. Multiple drug intolerances. SCUBA INSTRUCTOR (cyclophotocoagulation) right eye recommended. Discussed risk vs. benefit CPCright eye including risk bleeding, infection, loss of vision, high IOP, low IOP, anesthesia risk. All questions answered. #2 Pseudophakia right eye #3 cataract left eye DIAGNOSIS #1 ICE with advanced glaucoama #2 Pseudophakia right eye #3 cataract left eye CDM Reports - EYEGEN Id: [id number] Status: Fnl documented in this encounter Plan of Treatment Upcoming Encounters Date Type Department Care Team (Late st Contact Info) Description 11/25/2023 11:00 AM CDT Office Visit Department of Ophthalmology in [place], [place] [address] [phone] Estevan Robledo M.D. [address] [place] [phone] documented as of this encounter Visit Diagnoses Not on filedocumented in this encounter Care Teams Site Lead Relationship Specialty Start Date End Date Davide Connelly P.A.-C. PCP - General Family Medicine 07/11/17 documented as of this encounter
--- OUTSIDE RECORDS SUMMARY | 2023-11-21 08:15 | XMS_ITS | Encounter Summary ---
Author Organization [facility] Address [address] [place] [address] Care Team Providers Care Instrument Designer Name Role Phone Davide Connelly P.A.-C. Primary Care Provider Encounter Details Date Type Department Care Team (Late st Contact Info) Description 04/03/2005 Historical Ophthalmology RST OPH Farzad Blackburn M.D. Social History Tobacco Use Types Packs/Day Years Used Date Smoking Tobacco: Never Assessed Sex and Gender Information Value Date Recorded Sex Assigned at Female 03/31/2018 8:18 PM CARPET WINDER Gender Identity Female 03/31/2018 8:18 PM CARPET WINDER Sexual Orientation Straight 03/31/2018 8: 18 PM CARPET WINDER documented as of this encounter Progress Notes [...] right eye CDM Reports - EYEGEN Id: [id number] Status: Fnl documented in this encounter Plan of Treatment Upcoming Encounters Date Type Department Care Team (Late st Contact Info) Description 11/25/2023 11:00 AM CDT Office Visit Department of Ophthalmology in [place], [place] [address], [place] [phone] Estevan Robledo M.D. [address] [place] [phone] documented as of this encounter Visit Diagnoses Not on filedocumented in this encounter Care Teams Instrument Designer Relationship Specialty Start Date End Date Davide Connelly P.A.-C. PCP - General Family Medicine 07/11/17 documented as of this encounter
--- OUTSIDE RECORDS SUMMARY | 2023-11-21 08:15 | XMS_ITS | Encounter Summary ---
Author Organization [facility] Address [address] [place] [address] Care Team Providers Care Tie Tamper Name Role Phone Davide Connelly P.A.-C. Primary Care Provider Encounter Details Date Type Department Care Team (Late st Contact Info) Description 10/11/2005 Historical Ophthalmology RST OPH Farzad Blackburn M.D. Social History Tobacco Use Types Packs/Day Years Used Date Smoking Tobacco: Never Assessed Sex and Gender Information Value Date Recorded Sex Assigned at Female 03/31/2018 8:18 PM AIR QUALITY TECHNICIAN Gender Identity Female 03/31/2018 8:18 PM AIR QUALITY TECHNICIAN Sexual Orientation Straight 03/31/2018 8: 18 PM AIR QUALITY TECHNICIAN documented as of this encounter Progress Notes [...] right eye CDM Reports - EYEGEN Id: [id number] Status: Fnl documented in this encounter Plan of Treatment Upcoming Encounters Date Type Department Care Team (Late st Contact Info) Description 11/25/2023 11:00 AM CDT Office Visit Department of Ophthalmology in [place], [place] [address] [place] [phone] Estevan Robledo M.D. [address] [place] [phone] documented as of this encounter Visit Diagnoses Not on filedocumented in this encounter Care Teams Tie Tamper Relationship Specialty Start Date End Date Davide Connelly P.A.-C. PCP - General Family Medicine 07/11/17 documented as of this encounter
--- OUTSIDE RECORDS SUMMARY | 2023-11-21 08:15 | XMS_ITS | Encounter Summary ---
Author Organization [facility] Address [address] [place] [address] Care Team Providers Care Economic History Teacher Name Role Phone Davide Connelly P.A.-C. Primary Care Provider Encounter Details Date Type Department Care Team (Late st Contact Info) Description 04/01/2008 Historical Ophthalmology RST OPH Aries Bacon M.D., M.S. [address] [place] [phone] Social History Tobacco Use Types Packs/Day Years Used Date Smoking Tobacco: Never Assessed Sex and Gender Information Value Date Recorded Sex Assigned at Female 03/31/2018 8:18 PM TIE LOADER Gender Identity Female 03/31/2018 8:18 PM TIE LOADER Sexual Orientation Straight 03/31/2018 8: 18 PM TIE LOADER documented as of this encounter Progress Notes [...] months with RUPERTO - if progression, consider LEATHER CLEANER #2 pseudophakia, right eye DIAGNOSIS #1 Iridocorneal endothelial syndrome, right eye #2 Pseudophakia, right eye CDM Reports - EYEGEN Id: [id number] Status: Fnl documented in this encounter Plan of Treatment Upcoming Encounters Date Type Department Care Team (Late st Contact Info) Description 11/25/2023 11:00 AM CDT Office Visit Department of Ophthalmology in [place], [place] [address] [phone] Estevan Robledo M.D. [address] [phone] documented as of this encounter Visit Diagnoses Not on filedocumented in this encounter Care Teams Economic History Teacher Relationship Specialty Start Date End Date Davide Connelly P.A.-C. PCP - General Family Medicine 07/11/17 documented as of this encounter
--- OUTSIDE RECORDS SUMMARY | 2023-11-21 08:15 | XMS_ITS | Encounter Summary ---
Author Organization [facility] Address [address] [place] [address] Care Team Providers Care Jewelry Making Instructor Name Role Phone Davide Connelly P.A.-C. Primary Care Provider Encounter Details Date Type Department Care Team (Late st Contact Info) Description 10/25/2009 Historical Ophthalmology RST OPH Lonnie Colunga M.D. Social History Tobacco Use Types Packs/Day Years Used Date Smoking Tobacco: Never Assessed Sex and Gender Information Value Date Recorded Sex Assigned at Female 03/31/2018 8:18 PM AUTO GARAGE ATTENDANT Gender Identity Female 03/31/2018 8:18 PM AUTO GARAGE ATTENDANT Sexual Orientation Straight 03/31/2018 8: 18 PM AUTO GARAGE ATTENDANT documented as of this encounter Progress Notes [...] right eye CDM Reports - EYEGEN Id: [id number] Status: Fnl documented in this encounter Plan of Treatment Upcoming Encounters Date Type Department Care Team (Late st Contact Info) Description 11/25/2023 11:00 AM CDT Office Visit Department of Ophthalmology in [place], [place] [address] [phone] Estevan Robledo M.D. [address] [phone] documented as of this encounter Visit Diagnoses Not on filedocumented in this encounter Care Teams Jewelry Making Instructor Relationship Specialty Start Date End Date Davide Connelly P.A.-C. PCP - General Family Medicine 07/11/17 documented as of this encounter
--- OUTSIDE RECORDS SUMMARY | 2023-11-21 08:15 | XMS_ITS | Encounter Summary ---
Author Organization [facility] Address [address] [place] [address] Care Team Providers Care Utility Agent Name Role Phone Davide Connelly P.A.-C. Primary Care Provider Encounter Details Date Type Department Care Team (Late st Contact Info) Description 09/02/2009 Historical Ophthalmology RST OPH Aries Baocn M.D., M.S. [address] [place] [phone] Social History Tobacco Use Types Packs/Day Years Used Date Smoking Tobacco: Never Assessed Sex and Gender Information Value Date Recorded Sex Assigned at Female 03/31/2018 8:18 PM LINE PATROLMAN Gender Identity Female 03/31/2018 8:18 PM LINE PATROLMAN Sexual Orientation Straight 03/31/2018 8: 18 PM LINE PATROLMAN documented as of this encounter Progress Notes [...] right eye CDM Reports - EYEGEN Id: [id number] Status: Fnl documented in this encounter Plan of Treatment Upcoming Encounters Date Type Department Care Team (Late st Contact Info) Description 11/25/2023 11:00 AM CDT Office Visit Department of Ophthalmology in [place], [place] [address] [place] [phone] Estevan Robledo M.D. [address], [place] [phone] documented as of this encounter Visit Diagnoses Not on filedocumented in this encounter Care Teams Utility Agent Relationship Specialty Start Date End Date Davide Connelly P.A.-C. PCP - General Family Medicine 07/11/17 documented as of this encounter
--- OUTSIDE RECORDS SUMMARY | 2023-11-21 08:15 | XMS_ITS | Encounter Summary ---
Author Organization [facility] Address [address] [place] [address] Care Team Providers Care Wound Treatment Rn Name Role Phone Davide Connelly P.A.-C. Primary Care Provider Encounter Details Date Type Department Care Team (Late st Contact Info) Description 04/23/2006 Historical Ophthalmology RST OPH Farzad Blackburn M.D. Social History Tobacco Use Types Packs/Day Years Used Date Smoking Tobacco: Never Assessed Sex and Gender Information Value Date Recorded Sex Assigned at Female 03/31/2018 8:18 PM SALES NEGOTIATOR Gender Identity Female 03/31/2018 8:18 PM SALES NEGOTIATOR Sexual Orientation Straight 03/31/2018 8: 18 PM SALES NEGOTIATOR documented as of this encounter Progress Notes [...] right eye CDM Reports - EYEGEN Id: [id number] Status: Fnl documented in this encounter Plan of Treatment Upcoming Encounters Date Type Department Care Team (Late st Contact Info) Description 11/25/2023 11:00 AM CDT Office Visit Department of Ophthalmology in [place], [place] [address] [phone] Estevan Robledo M.D. [address], [place] [phone] documented as of this encounter Visit Diagnoses Not on filedocumented in this encounter Care Teams Wound Treatment Rn Relationship Specialty Start Date End Date Davide Connelly P.A.-C. PCP - General Family Medicine 07/11/17 documented as of this encounter
--- OUTSIDE RECORDS SUMMARY | 2023-11-21 08:15 | XMS_ITS | Encounter Summary ---
Author Organization [facility] Address [address] [place] [address] Care Team Providers Care Brush Machine Setter Name Role Phone Davide Connelly P.A.-C. Primary Care Provider Encounter Details Date Type Department Care Team (Late st Contact Info) Description 11/21/2009 Historical Ophthalmology RST OPH Lonnie Colunga M.D. Social History Tobacco Use Types Packs/Day Years Used Date Smoking Tobacco: Never Assessed Sex and Gender Information Value Date Recorded Sex Assigned at Female 03/31/2018 8:18 PM WELT SEWER Gender Identity Female 03/31/2018 8:18 PM WELT SEWER Sexual Orientation Straight 03/31/2018 8: 18 PM WELT SEWER documented as of this encounter Progress Notes [...] right eye CDM Reports - EYEGEN Id: [id number] Status: Fnl documented in this encounter Plan of Treatment Upcoming Encounters Date Type Department Care Team (Late st Contact Info) Description 11/25/2023 11:00 AM CDT Office Visit Department of Ophthalmology in [place], [place] [address] [place] [phone] Estevan Robledo M.D. [address], [place] [phone] documented as of this encounter Visit Diagnoses Not on filedocumented in this encounter Care Teams Brush Machine Setter Relationship Specialty Start Date End Date Davide Connelly P.A.-C. PCP - General Family Medicine 07/11/17 documented as of this encounter
--- OUTSIDE RECORDS SUMMARY | 2023-11-21 08:15 | XMS_ITS | Encounter Summary ---
Author Organization [facility] Address [address] [place] [address] Care Team Providers Care Tub Puller Name Role Phone Davide Connelly P.A.-C. Primary Care Provider Encounter Details Date Type Department Care Team (Late st Contact Info) Description 10/06/2009 Historical Ophthalmology RST OPH Aries aBcon M.D., M.S. [address] [place] [phone] Social History Tobacco Use Types Packs/Day Years Used Date Smoking Tobacco: Never Assessed Sex and Gender Information Value Date Recorded Sex Assigned at Female 03/31/2018 8:18 PM CORROSION CONTROL SPECIALIST Gender Identity Female 03/31/2018 8:18 PM CORROSION CONTROL SPECIALIST Sexual Orientation Straight 03/31/2018 8: 18 PM CORROSION CONTROL SPECIALIST documented as of this encounter Progress [...] right eye CDM Reports - EYEGEN Id: [id number] Status: Fnl documented in this encounter Plan of Treatment Upcoming Encounters Date Type Department Care Team (Late st Contact Info) Description 11/25/2023 11:00 AM CDT Office Visit Department of Ophthalmology in [place], [place] [address] [phone] Estevan Robledo M.D. [address] [phone] documented as of this encounter Visit Diagnoses Not on filedocumented in this encounter Care Teams Tub Puller Relationship Specialty Start Date End Date Davide Connelly P.A.-C. PCP - General Family Medicine 07/11/17 documented as of this encounter
--- OUTSIDE RECORDS SUMMARY | 2023-11-21 08:15 | XMS_ITS | Encounter Summary ---
Author Organization [facility] Address [address] [place] [address] Care Team Providers Care Environmental Manager Name Role Phone Davide Connelly P.A.-C. Primary Care Provider Encounter Details Date Type Department Care Team (Late st Contact Info) Description 01/18/2009 Historical Ophthalmology RST OPH Aries Bacon M.D., M.S. [address] [place] [phone] Social History Tobacco Use Types Packs/Day Years Used Date Smoking Tobacco: Never Assessed Sex and Gender Information Value Date Recorded Sex Assigned at Female 03/31/2018 8:18 PM HEARSE DRIVER Gender Identity Female 03/31/2018 8:18 PM HEARSE DRIVER Sexual Orientation Straight 03/31/2018 8: 18 PM HEARSE DRIVER documented as of this encounter Progress Notes [...] the procedure with the patient (or legal customer contact representative and otherspresent during the discussion). The patient understands. All questions answered and consent given. Schedule for Mar 09 Continue current medications #2 pseudophakia, right eye DIAGNOSIS #1 Iridocorneal endothelial syndrome, right eye #2 pseudophakia, right eye CDM Reports - EYEGEN Id: [id number] Status: Fnl documented in this encounter Plan of Treatment Upcoming Encounters Date Type Department Care Team (Late st Contact Info) Description 11/25/2023 11:00 AM CDT Office Visit Department of Ophthalmology in [place], [place] [address] [place] [phone] Estevan Robledo M.D. [address] [place] [phone] documented as of this encounter Visit Diagnoses Not on filedocumented in this encounter Care Teams Environmental Manager Relationship Specialty Start Date End Date Davide Connelly P.A.-C. PCP - General Family Medicine 07/11/17 documented as of this encounter
--- OUTSIDE RECORDS SUMMARY | 2023-11-21 08:15 | XMS_ITS | Encounter Summary ---
Author Organization [facility] Address [address] [place] [address] Care Team Providers Care Pallet Rectifier Name Role Phone Davide Connelly P.A.-C. Primary Care Provider Encounter Details Date Type Department Care Team (Late st Contact Info) Description 11/20/2005 Historical Ophthalmology RST OPH Farzad Blackburn M.D. Social History Tobacco Use Types Packs/Day Years Used Date Smoking Tobacco: Never Assessed Sex and Gender Information Value Date Recorded Sex Assigned at Female 03/31/2018 8:18 PM MEDICAL DRIVER Gender Identity Female 03/31/2018 8:18 PM MEDICAL DRIVER Sexual Orientation Straight 03/31/2018 8: 18 PM MEDICAL DRIVER documented as of this encounter Progress Notes * Farzad Blackburn M.D. - 11/20/2005 12:00 AM CDT Eye General CHIEF COMPLAINT Patient states recheck HISTORY OF PRESENT ILLNESS having lid itiching and allergy since starting azopt IMPRESSION / REPORT / PLAN #1 iridocorneal endothelial syndrome, right eye goal 14 CT 567,679 field 2006: R dble arcs = 1996; [...] right eye CDM Reports - EYEGEN Id: [id number] Status: Fnl documented in this encounter Plan of Treatment Upcoming Encounters Date Type Department Care Team (Late st Contact Info) Description 11/25/2023 11:00 AM CDT Office Visit Department of Ophthalmology in [place], [place] [address], [place] [phone] Estevan Robledo M.D. [address], [place] [phone] documented as of this encounter Visit Diagnoses Not on filedocumented in this encounter Care Teams Pallet Rectifier Relationship Specialty Start Date End Date Davide Connelly P.A.-C. PCP - General Family Medicine 07/11/17 documented as of this encounter
--- OUTSIDE RECORDS SUMMARY | 2023-11-21 08:15 | XMS_ITS | Encounter Summary ---
Author Organization [facility] Address [address] [place] [address] Care Team Providers Care Vocational Nurse Lvn Name Role Phone Davide Connelly P.A.-C. Primary Care Provider Encounter Details Date Type Department Care Team (Late st Contact Info) Description 09/12/2007 Historical Ophthalmology RST OPH Aries Bacon M.D., M.S. [address] [place] [phone] Social History Tobacco Use Types Packs/Day Years Used Date Smoking Tobacco: Never Assessed Sex and Gender Information Value Date Recorded Sex Assigned at Female 03/31/2018 8:18 PM TUNNEL MINER Gender Identity Female 03/31/2018 8:18 PM TUNNEL MINER Sexual Orientation Straight 03/31/2018 8: 18 PM TUNNEL MINER documented as of this encounter Progress Notes [...] right eye CDM Reports - EYEGEN Id: [id number] Status: Fnl documented in this encounter Plan of Treatment Upcoming Encounters Date Type Department Care Team (Late st Contact Info) Description 11/25/2023 11:00 AM CDT Office Visit Department of Ophthalmology in [place], [place] [address] [phone] Estevan Robledo M.D. [address] [place] [phone] documented as of this encounter Visit Diagnoses Not on filedocumented in this encounter Care Teams Vocational Nurse Lvn Relationship Specialty Start Date End Date Davide Connelly P.A.-C. PCP - General Family Medicine 07/11/17 documented as of this encounter
--- OUTSIDE RECORDS SUMMARY | 2023-11-21 08:15 | XMS_ITS | Encounter Summary ---
Author Organization [facility] Address [address] [place] [address] Care Team Providers Care Telecommunications Line Installer Name Role Phone Davide Connelly P.A.-C. Primary Care Provider Encounter Details Date Type Department Care Team (Late st Contact Info) Description 10/19/2009 Historical Ophthalmology RST OPH Lonnie Colunga M.D. Social History Tobacco Use Types Packs/Day Years Used Date Smoking Tobacco: Never Assessed Sex and Gender Information Value Date Recorded Sex Assigned at Female 03/31/2018 8:18 PM LOGGING SUPERINTENDENT Gender Identity Female 03/31/2018 8:18 PM LOGGING SUPERINTENDENT Sexual Orientation Straight 03/31/2018 8: 18 PM LOGGING SUPERINTENDENT documented as of this encounter Progress Notes [...] right eye CDM Reports - EYEGEN Id: [id number] Status: Fnl documented in this encounter Plan of Treatment Upcoming Encounters Date Type Department Care Team (Late st Contact Info) Description 11/25/2023 11:00 AM CDT Office Visit Department of Ophthalmology in [place], [place] [address] [phone] Estevan Robledo M.D. [address] [phone] documented as of this encounter Visit Diagnoses Not on filedocumented in this encounter Care Teams Telecommunications Line Installer Relationship Specialty Start Date End Date Davide Connelly P.A.-C. PCP - General Family Medicine 07/11/17 documented as of this encounter
--- OUTSIDE RECORDS SUMMARY | 2023-11-21 08:15 | XMS_ITS | Encounter Summary ---
Author Organization [facility] Address [address] [place] [address] Care Team Providers Care Principal Data Architect Name Role Phone Davide Connelly P.A.-C. Primary Care Provider Encounter Details Date Type Department Care Team (Late st Contact Info) Description 10/21/2006 Historical Ophthalmology RST OPH Aries Bacon M.D., M.S. [address] [place] [phone] Social History Tobacco Use Types Packs/Day Years Used Date Smoking Tobacco: Never Assessed Sex and Gender Information Value Date Recorded Sex Assigned at Female 03/31/2018 8:18 PM CONCILIATOR Gender Identity Female 03/31/2018 8:18 PM CONCILIATOR Sexual Orientation Straight 03/31/2018 8: 18 PM CONCILIATOR documented as of this encounter Progress Notes [...] right eye CDM Reports - EYEGEN Id: [id number] Status: Fnl documented in this encounter Plan of Treatment Upcoming Encounters Date Type Department Care Team (Late st Contact Info) Description 11/25/2023 11:00 AM CDT Office Visit Department of Ophthalmology in [place], [place] [address] [phone] Estevan Robledo M.D. [address] [phone] documented as of this encounter Visit Diagnoses Not on filedocumented in this encounter Care Teams Principal Data Architect Relationship Specialty Start Date End Date Davide Connelly P.A.-C. PCP - General Family Medicine 07/11/17 documented as of this encounter
--- OUTSIDE RECORDS SUMMARY | 2023-11-21 08:15 | XMS_ITS | Encounter Summary ---
Author Organization [facility] Address [address] [place] [address] Care Team Providers Care Slag Motor Operator Name Role Phone Davide Connelly P.A.-C. Primary Care Provider Encounter Details Date Type Department Care Team (Late st Contact Info) Description 05/15/2007 Historical Ophthalmology RST OPH Aries Bacon M.D., M.S. [address] [place] [phone] Social History Tobacco Use Types Packs/Day Years Used Date Smoking Tobacco: Never Assessed Sex and Gender Information Value Date Recorded Sex Assigned at Female 03/31/2018 8:18 PM COAGULATING BATH MIXER Gender Identity Female 03/31/2018 8:18 PM COAGULATING BATH MIXER Sexual Orientation Straight 03/31/2018 8: 18 PM COAGULATING BATH MIXER documented as of this encounter Progress Notes [...] with vision problems. [facility] for problems with the Rx. She then went[facility] times in where she stuck with [...] right eye CDM Reports - EYEGEN Id: [id number] Status: Fnl documented in this encounter Plan of Treatment Upcoming Encounters Date Type Department Care Team (Late st Contact Info) Description 11/25/2023 11:00 AM CDT Office Visit Department of Ophthalmology in [place], [place] [address] [place] [phone] Estevan Robeldo M.D. [address] [place] [phone] documented as of this encounter Visit Diagnoses Not on filedocumented in this encounter Care Teams Slag Motor Operator Relationship Specialty Start Date End Date Davide Connelly P.A.-C. PCP - General Family Medicine 07/11/17 documented as of this encounter
--- OUTSIDE RECORDS SUMMARY | 2023-11-21 08:16 | XMS_ITS | Encounter Summary ---
Author Organization [facility] Address [address] [place] [address] Care Team Providers Care Extension Division Director Name Role Phone Davide Connelly P.A.-C. Primary Care Provider Encounter Details Date Type Department Care Team (Late st Contact Info) Description 01/18/2003 Historical Ophthalmology RST OPH Farzad Blackburn M.D. Social History Tobacco Use Types Packs/Day Years Used Date Smoking Tobacco: Never Assessed Sex and Gender Information Value Date Recorded Sex Assigned at Female 03/31/2018 8:18 PM FAC ENGINEER Gender Identity Female 03/31/2018 8:18 PM FAC ENGINEER Sexual Orientation Straight 03/31/2018 8: 18 PM FAC ENGINEER documented as of this encounter Progress [...] pseudophakia OD CDM Reports - EYEGEN Id: [id number] Status: Fnl documented in this encounter Plan of Treatment Upcoming Encounters Date Type Department Care Team (Late st Contact Info) Description 11/25/2023 11:00 AM CDT Office Visit Department of Ophthalmology in [place], [place] [address] [place] [phone] Estevan Robledo M.D. [address] [place] [phone] documented as of this encounter Visit Diagnoses Not on filedocumented in this encounter Care Teams Extension Division Director Relationship Specialty Start Date End Date Davide Connelly P.A.-C. PCP - General Family Medicine 07/11/17 documented as of this encounter
--- OUTSIDE RECORDS SUMMARY | 2023-11-21 08:16 | XMS_ITS | Clinical Summary ---
Author Organization [employer] [facility] Address [place], [place] [address] Care Team Providers Care Broach Operator Name Role Phone Davide Connelly Primary Care Provider [phone] Allergies Active Allergy Reactions Criticality Noted Date [...] 65+ (1 of 1 - PCV) 02/01/2001 RSV vaccine for adults or (1 - 1-dose 75+ series) 02/01/2011 COVID-19 vaccine series ( season) 2023 01/24/2023, 01/11/2022, 08/21/2021, Additional history exists Influenza for age 65+ 10/27/2023 Medical Devices Implanted Type Area Reading Interventionist Device Identifier Shelf Expiration Date Model / Serial / Lot [id number] - [id number] Implanted:Qty: 1 on 02/05/2019 by Cabrera Rahman Jr., MD at [facility] Left: Eye [employer] 10/25/2021 [id number] / [id number] / Advance Directives Documents on File Type Date Recorded Patient Patient Placement Coordinator Expl anation Healthcare Directive 07/19/2011 12:00 AM A DVANCE DIRECTIVE * Full Code (Latest Code Status on File) Date Activated Date Inactivated Comments 02/05/2019 7:03 AM 02/06/2019 2:33 AM Question Answer Comments Code Status Discussion: Not Discussed * Full Code Date Activated Date Inactivated Comments 01/28/2019 8:11 AM 01/28/2019 12:32 PM Care Teams Broach Operator Relationship Specialty Start Date End Date Davide Connelly PA PCP - General 04/21/18
--- OUTSIDE RECORDS SUMMARY | 2023-11-21 08:16 | XMS_ITS | Encounter Summary ---
Author Organization [facility] Address [address] [place] [address] Care Team Providers Care Contracts Analyst Name Role Phone Davide Connelly P.A.-C. Primary Care Provider Encounter Details Date Type Department Care Team (Late st Contact Info) Description 06/26/2002 Historical Ophthalmology RST OPH Farzad Blackburn M.D. Social History Tobacco Use Types Packs/Day Years Used Date Smoking Tobacco: Never Assessed Sex and Gender Information Value Date Recorded Sex Assigned at Female 03/31/2018 8:18 PM SQUARE SHEAR OPERATOR Gender Identity Female 03/31/2018 8:18 PM SQUARE SHEAR OPERATOR Sexual Orientation Straight 03/31/2018 8: 18 PM SQUARE SHEAR OPERATOR documented as of this encounter [...] pseudophakia OD CDM Reports - EYEGEN Id: [id number] Status: Fnl documented in this encounter Plan of Treatment Upcoming Encounters Date Type Department Care Team (Late st Contact Info) Description 11/25/2023 11:00 AM CDT Office Visit Department of Ophthalmology in [place], [place] [address], [place] [address] Estevan Robledo M.D. [address], [place] [address] documented as of this encounter Visit Diagnoses Not on filedocumented in this encounter Care Teams Contracts Analyst Relationship Specialty Start Date End Date Davide Connelly P.A.-C. PCP - General Family Medicine 07/11/17 documented as of this encounter
--- OUTSIDE RECORDS SUMMARY | 2023-11-21 08:16 | XMS_ITS | Encounter Summary ---
Author Organization [facility] Address [address] [place] [address] Care Team Providers Care Wound Care Specialist Name Role Phone Davide Connelly P.A.-C. Primary Care Provider Encounter Details Date Type Department Care Team (Late st Contact Info) Description 01/03/2004 Historical Ophthalmology RST OPH Farzad Blackburn M.D. Social History Tobacco Use Types Packs/Day Years Used Date Smoking Tobacco: Never Assessed Sex and Gender Information Value Date Recorded Sex Assigned at Female 03/31/2018 8:18 PM CONCRETE ANALYST Gender Identity Female 03/31/2018 8:18 PM CONCRETE ANALYST Sexual Orientation Straight 03/31/2018 8: 18 PM CONCRETE ANALYST documented as of this encounter Progress [...] pseudophakia OD CDM Reports - EYEGEN Id: [id number] Status: Fnl documented in this encounter Plan of Treatment Upcoming Encounters Date Type Department Care Team (Late st Contact Info) Description 11/25/2023 11:00 AM CDT Office Visit Department of Ophthalmology in [place], [place] [address], [place] [address] Estevan Robledo M.D. [address] [address] documented as of this encounter Visit Diagnoses Not on filedocumented in this encounter Care Teams Wound Care Specialist Relationship Specialty Start Date End Date Davide Connelly P.A.-C. PCP - General Family Medicine 07/11/17 documented as of this encounter
--- OUTSIDE RECORDS SUMMARY | 2023-11-21 08:16 | XMS_ITS | Encounter Summary ---
Author Organization [facility] Address [address] [place] [address] Care Team Providers Care Pulverizer Name Role Phone Davide Connelly P.A.-C. Primary Care Provider Encounter Details Date Type Department Care Team (Late st Contact Info) Description 07/20/2003 Historical Ophthalmology RST OPH Farzad Blackburn M.D. Social History Tobacco Use Types Packs/Day Years Used Date Smoking Tobacco: Never Assessed Sex and Gender Information Value Date Recorded Sex Assigned at Female 03/31/2018 8:18 PM SOFTWARE DESIGN MANAGER Gender Identity Female 03/31/2018 8:18 PM SOFTWARE DESIGN MANAGER Sexual Orientation Straight 03/31/2018 8: 18 PM SOFTWARE DESIGN MANAGER documented as of this encounter Progress [...] pseudophakia OD CDM Reports - EYEGEN Id: [id number] Status: Fnl documented in this encounter Plan of Treatment Upcoming Encounters Date Type Department Care Team (Late st Contact Info) Description 11/25/2023 11:00 AM CDT Office Visit Department of Ophthalmology in [place], [place] [address] [place] [address] Estevan Robledo M.D. [address] [place] [address] documented as of this encounter Visit Diagnoses Not on filedocumented in this encounter Care Teams Pulverizer Relationship Specialty Start Date End Date Davide Connelly P.A.-C. PCP - General Family Medicine 07/11/17 documented as of this encounter
--- OUTSIDE RECORDS SUMMARY | 2023-11-21 08:16 | XMS_ITS | Encounter Summary ---
Author Organization [facility] Address [address] [place] [address] Care Team Providers Care Metal Riveter Name Role Phone Davide Connelly P.A.-C. Primary Care Provider Encounter Details Date Type Department Care Team (Late st Contact Info) Description 05/27/2002 Historical Ophthalmology RST OPH Farzad Blackburn M.D. Social History Tobacco Use Types Packs/Day Years Used Date Smoking Tobacco: Never Assessed Sex and Gender Information Value Date Recorded Sex Assigned at Female 03/31/2018 8:18 PM LIGHT AIR DEFENSE ARTILLERY CREWMEMBER Gender Identity Female 03/31/2018 8:18 PM LIGHT AIR DEFENSE ARTILLERY CREWMEMBER Sexual Orientation Straight 03/31/2018 8: 18 PM LIGHT AIR DEFENSE ARTILLERY CREWMEMBER documented as of this encounter Progress Notes [...] pseudophakia OD CDM Reports - EYEGEN Id: [id number] Status: Fnl documented in this encounter Plan of Treatment Upcoming Encounters Date Type Department Care Team (Late st Contact Info) Description 11/25/2023 11:00 AM CDT Office Visit Department of Ophthalmology in [place], [place] [address] [place] [phone] Estevan Robledo M.D. [address], [place] [address] documented as of this encounter Visit Diagnoses Not on filedocumented in this encounter Care Teams Metal Riveter Relationship Specialty Start Date End Date Davide Connelly P.A.-C. PCP - General Family Medicine 07/11/17 documented as of this encounter
[2023-11-21 14:44] LABS: C.Difficile Negative (Negative); CDIFFEPI 027 PRESUMPTIVE NEGATIVE (Negative)
== END 2023-11-21 09:12 | disposition home or self-care (01) ==
PROVIDERS: PCP Nurse Practitioner Family; Visit Provider Nurse Practitioner Family
DX: R19.7 Diarrhea, unspecified (principal)
CPT/HCPCS: 87493; 87505

== ENCOUNTER 2024-02-10 09:44 | Outpatient (CLI) | payer MEDICARE, BC, SELFPAY | END 2024-02-10 09:45 | disposition home or self-care (01) | LOC: KYNREF 09:45 | PROVIDERS: PCP Nurse Practitioner Family; Visit Provider Nurse Practitioner Family | DX: F33.8 Other recurrent depressive disorders (principal); M81.0 Age-related osteoporosis without current pathological fracture | CPT/HCPCS: 82306 ==